=== PATIENT | male | born 1945 | race Caucasian/White ===

== ENCOUNTER → 2017-11-16 09:30 | Outpatient (CLI) | payer MEDICARE, OTHER, SELFPAY ==
[2017-11-16 10:20] LABS: BUN Creatinine Ratio 26.7 (6-22); Blood Urea Nitrogen 24 mg/dL (9-20); Calcium 9.8 mg/dL (8.4-10.2); Carbon Dioxide 30 mmol/L (22-32); Chloride 104 mmol/L (98-107); Estimated Glomerular Filt Rate > 60.0 mL/min (>60); Glucose 93 mg/dL (80-110); HEMOLYSIS < 15 (0-50); Potassium 3.4 mmol/L (3.4-5.1); Sodium 141 mmol/L (137-145)
== END ==
PROVIDERS: Visit Provider Internal Medicine
DX: I10 Essential (primary) hypertension (principal)
CPT/HCPCS: 36415; 80048

== ENCOUNTER → 2018-04-17 12:55 | Outpatient (CLI) | payer MEDICARE, OTHER, SELFPAY | PROVIDERS: Visit Provider Specialist | DX: N40.1 Benign prostatic hyperplasia with lower urinary tract symptoms (principal) | CPT/HCPCS: 36415; 84153 ==

== ENCOUNTER → 2018-08-10 07:38 | Outpatient (CLI) | payer MEDICARE, OTHER, SELFPAY ==
[2018-08-10 09:17] LABS: Alanine Aminotransferase 27 IU/L (21-72); Albumin 4.1 g/dL (3.5-5.0); Albumin Globulin Ratio 1.6 (1.0-2.8); Alkaline Phosphatase 53 U/L (38-126); Aspartate Aminotransferase 23 IU/L (17-59); BUN Creatinine Ratio 26.7 (6-22); Bilirubin Total 1.4 mg/dL (0.2-1.3); Blood Urea Nitrogen 24 mg/dL (9-20); Calcium 9.7 mg/dL (8.4-10.2); Carbon Dioxide 33 mmol/L (22-32); Chloride 101 mmol/L (98-107); Cholesterol 152 mg/dL (140-199); Estimated Glomerular Filt Rate > 60.0 mL/min (>60); Globulin 2.6 g/dL (1.7-4.1); Glucose 91 mg/dL (80-110); HDL Cholesterol 42 mg/dL (40-60); HEMOLYSIS < 15 (0-50); LDL Cholesterol Calculated 102 mg/dL (<100); Potassium 3.2 mmol/L (3.4-5.1); Sodium 142 mmol/L (137-145); Total Protein 6.7 g/dL (6.3-8.2); Triglycerides 42 mg/dL (35-150)
[2018-08-10 10:07] LABS: TSH w/ Reflex to FT4 1.12 uIU/mL (0.47-4.68)
[2018-08-14 12:09] LABS: Magnesium 1.5 mg/dL (1.6-2.3)
== END ==
PROVIDERS: PCP Internal Medicine; Visit Provider Internal Medicine
DX: I10 Essential (primary) hypertension (principal); E04.2 Nontoxic multinodular goiter; Z13.6 Encounter for screening for cardiovascular disorders
CPT/HCPCS: 36415; 80053; 80061; 83735; 84443

== ENCOUNTER → 2018-08-21 10:59 | Outpatient (CLI) | payer MEDICARE, OTHER, SELFPAY ==
--- NOTE | 2018-08-21 11:03 | DI.RAD.S_ITS ---
PROCEDURE: XR CLAVICLE LT INDICATIONS: left clavicle pain TECHNIQUE: 2 views of the clavicle were acquired. COMPARISON: None. FINDINGS: Bones: No fractures or dislocations. No suspicious bony lesions. Soft tissues: No suspicious soft tissue calcifications. IMPRESSION: No acute fracture. No osseous lesion. If symptoms and/or clinical suspicion for pathology persist, further assessment with repeat, or advanced imaging (e.g., CT, MRI, or bone scan) may be helpful for further assessment. Dictated by: Mary Stearns M.D. on 08/21/2018 at 11:18 Approved by: Mary Stearns M.D. on 08/21/2018 at 11:18
--- NOTE | 2018-08-21 11:03 | DI.RAD.S_ITS ---
PROCEDURE: XR SHOULDER LT MIN 2V INDICATIONS: clavicle pain TECHNIQUE: 3 views of the shoulder were acquired. COMPARISON: None. FINDINGS: Bones: No fractures or dislocations. No suspicious bony lesions. Visualized ribs appear intact. Soft tissues: No suspicious soft tissue calcifications. IMPRESSION: No acute fracture. No osseous lesion. If symptoms and/or clinical suspicion for pathology persist, further assessment with repeat, or advanced imaging (e.g., CT, MRI, or bone scan) may be helpful for further assessment. Dictated by: Mary Stearns M.D. on 08/21/2018 at 11:17 Approved by: Mary Stearns M.D. on 08/21/2018 at 11:18
== END ==
PROVIDERS: PCP Internal Medicine; Visit Provider Physician Assistant
DX: M89.8X1 Other specified disorders of bone, shoulder (principal); M25.512 Pain in left shoulder
CPT/HCPCS: 73000; 73030

== ENCOUNTER → 2018-09-12 10:03 | Outpatient (CLI) | payer MEDICARE, OTHER, SELFPAY ==
[2018-09-12 11:52] LABS: BUN Creatinine Ratio 28.9 (6-22); Blood Urea Nitrogen 26 mg/dL (9-20); Calcium 9.7 mg/dL (8.4-10.2); Carbon Dioxide 28 mmol/L (22-32); Chloride 102 mmol/L (98-107); Estimated Glomerular Filt Rate > 60.0 mL/min (>60); Glucose 91 mg/dL (80-110); HEMOLYSIS < 15 (0-50); Magnesium 1.6 mg/dL (1.6-2.3); Potassium 3.6 mmol/L (3.4-5.1); Sodium 139 mmol/L (137-145)
== END ==
PROVIDERS: PCP Internal Medicine; Visit Provider Internal Medicine
DX: I10 Essential (primary) hypertension (principal); R79.0 Abnormal level of blood mineral
CPT/HCPCS: 36415; 80048; 83735

== ENCOUNTER 2018-09-24 20:52 | Emergency (ER) | payer MEDICARE, OTHER, SELFPAY ==
[2018-09-24 20:55] VITALS: BP 133/79; PULSE 62; RESP 16; TEMP 36.1; O2SAT 96
--- NOTE | 2018-09-24 20:58 | DI.RAD.S_ITS ---
PROCEDURE: XR FINGER RT MIN 2V INDICATIONS: crush injury to right thumb TECHNIQUE: AP hand, 2 views of the right first finger(s) acquired. COMPARISON: [facility], , FINGER RT, 11/05/2015, 11:14. FINDINGS: Bones: No fractures or dislocations. No suspicious bony lesions. Soft tissues: No suspicious soft tissue calcifications. IMPRESSION: No acute fracture. No osseous lesion. If clinical suspicion and/or symptoms persist, further assessment with repeat plainfilms, or advanced imaging (e.g., CT, MRI, or bone scan) may be helpful for further assessment. Dictated by: Mary Stearns M.D. on 09/24/2018 at 21:34 Approved by: Mary Stearns M.D. on 09/24/2018 at 21:34
--- NOTE | 2018-09-24 21:49 | ED.UPPEXIN ---
HPI - Extremity Injury (Upper) General Chief Complaint: Extremity Injury, Upper Stated Complaint: smashed thumb in door Time Seen by Provider: 09/24/18 21:30 Source: patient and family Mode of arrival: ambulatory Limitations: no limitations History of Present Illness HPI narrative: 73-year-old male nonsmoker presents with his in the chief complaint of right thumb pain after accidentally slamming it in a door. There is no break in the skin, denies numbness or tingling and states this pain is worse with range of motion. He denies other injury and is free of complaints complaint: injury to: right and finger Onset (ago): hour(s) Other Extremity Injury: Right: fingers Other injuries: none Handedness: right Place: home Severity: mild Relieving factors: immobilization Exacerbating factors: movement of extremity Context: direct blow Associated symptoms: denies other symptoms Related Data Home Medications Medication Instructions Recorded Confirmed ASPIRIN (#ASPIRIN LOW STRENGTH) 81 mg PO Q DAY #0 03/23/12 08/21/18 tamsulosin [Flomax] 0.4 mg PO QDAY #0 cap 07/19/17 08/21/18 omeprazole 40 mg capsule,delayed 40 mg PO QDAY PRN cap 07/03/18 08/21/18 release Previous Rx's Medication Instructions Recorded chlorthalidone 50 mg tablet 50 mg PO QDAY #90 tab 06/13/18 potassium chloride ER 10 mEq 40 meq PO BID #720 tab 07/03/18 tablet,extended release magnesium oxide 400 mg capsule 400 mg PO BID #60 cap 09/19/18 Allergies Allergy/AdvReac Type Severity Reaction Status Date / Time lisinopril [LISINOPRIL] Allergy Mild feel Verified 09/24/18 20:58 strange Review of Systems Constitutional Denies chills, Denies fever(s), Denies lethargy and Denies weakness Eyes Denies change in vision, Denies eye discharge, Denies irritation and Denies loss of vision ENT Ears, Nose, Mouth, and Throat: Denies change in voice, Denies neck pain and Denies sore throat Cardiovascular Denies chest pain, Denies irregular heart rhythm, Denies lightheadedness, Denies palpitations, Denies dyspnea, Denies dyspnea on exertion and Denies orthopnea Respiratory Denies cough, Denies dyspnea, Denies dyspnea on exertion and Denies wheezing Gastrointestinal Gastrointestinal: Denies abdominal pain, Denies change in bowel habits, Denies diarrhea, Denies nausea and Denies vomiting Genitourinary Denies hematuria, Denies flank pain, Denies urinary incontinence and Denies urinary urgency Musculoskeletal Reports limited range of motion and Denies neck pain Integumentary/Breasts Denies pruritus, Denies erythema, Denies rash and Denies wounds Neurologic Denies confusion, Denies loss of vision and Denies weakness Psychiatric Denies anxiety, Denies confusion, Denies depression, Denies homicidal ideation and Denies suicidal ideation Endocrine Denies palpitations Hematologic/Lymphatic Denies easy bruising Allergic/Immunologic Denies wheezing [facility] Medical History Essential hypertension (Chronic 06/29/11) Multinodular goiter (Chronic) 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 Extraoccular muscles are intact bilaterally. There is no subconjunctival hemorrhage or exudate. CHEST: Lungs are clear to auscultation bilaterally and free of wheezes, rales, or rhonchi. Heart rate is regular rhythm, there are no murmurs, clicks, rubs, or gallops. There is no chest wall tenderness. ABD: Abdomen is soft and nontender. There is no guarding or rebound. Bowel sounds are normal in all 4 quadrants. There is no mass or organomegaly. EXT: Full but painful range of motion of the right thumb. There is no break in the skin nor any obvious bony abnormality or deformity. Small subungual hematoma noted with sensation intact SKIN: Warm, pink, and dry. No erythema or rash Initial Vital Signs Initial Vital Signs: Vital Signs Temperature 97 F L 09/24/18 20:55 Pulse Rate 62 09/24/18 20:55 Respiratory Rate 16 09/24/18 20:55 Blood Pressure 133/79 09/24/18 20:55 Pulse Oximetry 96 09/24/18 20:55 Course Orders Ordered: ED Orders 09/24/18 20:58 XR finger RT min 2V Stat Vital Signs - 8 hr 09/24/18 20:55 09/24/18 22:10 Temperature 97 F L Pulse Rate 62 76 Respiratory Rate 16 14 Blood Pressure 133/79 138/82 Pulse Oximetry 96 99 [facility] - Extremity Injury (Upper) Imaging Data Finger Xray: Radiologist's impression: [address] [address] XRay Report Signed Patient: Reagan Holder WMR#: [id number] : 1945cct:[id number] Age/Sex: 73 / MDate of Service: 09/24/18 Loc: ED Accession Number: [id number] Procedure: XR finger RT min 2V Ordering Provider: Jony Levine D.O. PROCEDURE: XR FINGER RT MIN 2V INDICATIONS: crush injury to right thumb TECHNIQUE: AP hand, 2 views of the right first finger(s) acquired. COMPARISON: [facility], , FINGER RT, 11/05/2015, 11:14. FINDINGS: Bones: No fractures or dislocations. No suspicious bony lesions. Soft tissues: No suspicious soft tissue calcifications. IMPRESSION: No acute fracture. No osseous lesion. If clinical suspicion and/or symptoms persist, further assessment with repeat plainfilms, or advanced imaging (e.g., CT, MRI, or bone scan) may be helpful for further assessment. Dictated by: Mary Stearns M.D. on 09/24/2018 at 21:34 MDM Narrative Medical decision making narrative: Patient was significant thumb pain after crushing injury earlier tonight. No bony abnormality on x-ray and only a small subungual hematoma exam. It is very proximal and not large enough at this point time for trephination Discharge Plan Departure Patient Disposition: Home Clinical Impression: Subungual hematoma of digit of hand Qualifiers: Encounter type: initial encounter Qualified Code(s): S60.10XA - Contusion of unspecified finger with damage to nail, initial encounter Discharge Date/Time: 09/24/18 22:12 Interventions: ED Discharge Assessment Last Done: 09/24/18 22:10 Instructions: DI for Subungual Hematoma Activity Restrictions/Additional Instructions: *You have been diagnosed with [subungual hematoma right thumb] *What to do: *Take medications as directed: [id number] Tylenol or Motrin *Follow up with your primary care provider as planned in 2 weeks *Return to ER if you should have any new, worsening or concerning symptoms, such as [worsening pain, numbness, expansion of the hematoma or other bothersome symptoms] Prescriptions: No Action ASPIRIN (#ASPIRIN LOW STRENGTH) 81 mg PO Q DAY Qty: 0 RF: 0 tamsulosin [Flomax] 0.4 MG capsule,extended release 24hr 0.4 mg PO QDAY Qty: 0 RF: 0 chlorthalidone 50 mg tablet 50 mg PO QDAY Qty: 90 RF: 3 magnesium oxide 400 mg capsule 400 mg PO BID Qty: 60 RF: 7 omeprazole 40 mg capsule,delayed release(DR/EC) 40 mg PO QDAY PRNRF: 0 potassium chloride 10 mEq tablet extended release 40 meq PO BID Qty: 720 RF: 3 Referrals: Neri Mtz MD [Primary Care Provider] -
--- NOTE | 2018-09-24 21:53 | ED_ITS ---
HPI - Extremity Injury (Upper) General Chief Complaint: Extremity Injury, Upper Stated Complaint: smashed thumb in door Time Seen by Provider: 09/24/18 21:30 Source: patient and family Mode of arrival: ambulatory Limitations: no limitations History of Present Illness HPI narrative: 73-year-old male nonsmoker presents with his in the chief complaint of right thumb pain after accidentally slamming it in a door. There is no break in the skin, denies numbness or tingling and states this pain is worse with range of motion. He denies other injury and is free of complaints complaint: injury to: right and finger Onset (ago): hour(s) Other Extremity Injury: Right: fingers Other injuries: none Handedness: right Place: home Severity: mild Relieving factors: immobilization Exacerbating factors: movement of extremity Context: direct blow Associated symptoms: denies other symptoms Related Data Home Medications Medication Instructions Recorded Confirmed ASPIRIN (#ASPIRIN LOW STRENGTH) 81 mg PO Q DAY #0 03/23/12 08/21/18 tamsulosin [Flomax] 0.4 mg PO QDAY #0 cap 07/19/17 08/21/18 omeprazole 40 mg capsule,delayed 40 mg PO QDAY PRN cap 07/03/18 08/21/18 release Previous Rx's Medication Instructions Recorded chlorthalidone 50 mg tablet 50 mg PO QDAY #90 tab 06/13/18 potassium chloride ER 10 mEq 40 meq PO BID #720 tab 07/03/18 tablet,extended release magnesium oxide 400 mg capsule 400 mg PO BID #60 cap 09/19/18 Allergies Allergy/AdvReac Type Severity Reaction Status Date / Time lisinopril [LISINOPRIL] Allergy Mild feel Verified 09/24/18 20:58 strange Review of Systems Constitutional Denies chills, Denies fever(s), Denies lethargy and Denies weakness Eyes Denies change in vision, Denies eye discharge, Denies irritation and Denies loss of vision ENT Ears, Nose, Mouth, and Throat: Denies change in voice, Denies neck pain and Denies sore throat Cardiovascular Denies chest pain, Denies irregular heart rhythm, Denies lightheadedness, Denies palpitations, Denies dyspnea, Denies dyspnea on exertion and Denies orthopnea Respiratory Denies cough, Denies dyspnea, Denies dyspnea on exertion and Denies wheezing Gastrointestinal Gastrointestinal: Denies abdominal pain, Denies change in bowel habits, Denies diarrhea, Denies nausea and Denies vomiting Genitourinary Denies hematuria, Denies flank pain, Denies urinary incontinence and Denies urinary urgency Musculoskeletal Reports limited range of motion and Denies neck pain Integumentary/Breasts Denies pruritus, Denies erythema, Denies rash and Denies wounds Neurologic Denies confusion, Denies loss of vision and Denies weakness Psychiatric Denies anxiety, Denies confusion, Denies depression, Denies homicidal ideation and Denies suicidal ideation Endocrine Denies palpitations Hematologic/Lymphatic Denies easy bruising Allergic/Immunologic Denies wheezing [facility] Medical History Essential hypertension (Chronic 06/29/11) Multinodular goiter (Chronic) 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 Extraoccular muscles are intact bilaterally. There is no subconjunctival hemorrhage or exudate. CHEST: Lungs are clear to auscultation bilaterally and free of wheezes, rales, or rhonchi. Heart rate is regular rhythm, there are no murmurs, clicks, rubs, or gallops. There is no chest wall tenderness. ABD: Abdomen is soft and nontender. There is no guarding or rebound. Bowel sounds are normal in all 4 quadrants. There is no mass or organomegaly. EXT: Full but painful range of motion of the right thumb. There is no break in the skin nor any obvious bony abnormality or deformity. Small subungual hematoma noted with sensation intact SKIN: Warm, pink, and dry. No erythema or rash Initial Vital Signs Initial Vital Signs: Vital Signs Temperature 97 F L 09/24/18 20:55 Pulse Rate 62 09/24/18 20:55 Respiratory Rate 16 09/24/18 20:55 Blood Pressure 133/79 09/24/18 20:55 Pulse Oximetry 96 09/24/18 20:55 Course Orders Ordered: ED Orders 09/24/18 20:58 XR finger RT min 2V Stat Vital Signs - 8 hr 09/24/18 20:55 09/24/18 22:10 Temperature 97 F L Pulse Rate 62 76 Respiratory Rate 16 14 Blood Pressure 133/79 138/82 Pulse Oximetry 96 99 [facility] - Extremity Injury (Upper) Imaging Data Finger Xray: Radiologist's impression: [address] [address] XRay Report Signed Patient: Reagan Holder WMR#: [id number] : [id number]:[id number] Age/Sex: 73 / MDate of Service: 09/24/18 Loc: ED Accession Number: [id number] Procedure: XR finger RT min 2V Ordering Provider: Jony Levine D.O. PROCEDURE: XR FINGER RT MIN 2V INDICATIONS: crush injury to right thumb TECHNIQUE: AP hand, 2 views of the right first finger(s) acquired. COMPARISON: [facility], , FINGER RT, 11/05/2015, 11:14. FINDINGS: Bones: No fractures or dislocations. No suspicious bony lesions. Soft tissues: No suspicious soft tissue calcifications. IMPRESSION: No acute fracture. No osseous lesion. If clinical suspicion and/or symptoms persist, further assessment with repeat plainfilms, or advanced imaging (e.g., CT, MRI, or bone scan) may be helpful for further assessment. Dictated by: Mary Stearns M.D. on 09/24/2018 at 21:34 MDM Narrative Medical decision making narrative: Patient was significant thumb pain after crushing injury earlier tonight. No bony abnormality on x-ray and only a small subungual hematoma exam. It is very proximal and not large enough at this point time for trephination Discharge Plan Departure Patient Disposition: Home Clinical Impression: Subungual hematoma of digit of hand Qualifiers: Encounter type: initial encounter Qualified Code(s): S60.10XA - Contusion of unspecified finger with damage to nail, initial encounter Discharge Date/Time: 09/24/18 22:12 Interventions: ED Discharge Assessment Last Done: 09/24/18 22:10 Instructions: DI for Subungual Hematoma Activity Restrictions/Additional Instructions: *You have been diagnosed with [subungual hematoma right thumb] *What to do: *Take medications as directed: Gabw-[id number]-sbneurw Tylenol or Motrin *Follow up with your primary care provider as planned in 2 weeks *Return to ER if you should have any new, worsening or concerning symptoms, such as [worsening pain, numbness, expansion of the hematoma or other bothersome symptoms] Prescriptions: No Action ASPIRIN (#ASPIRIN LOW STRENGTH) 81 mg PO Q DAY Qty: 0 RF: 0 tamsulosin [Flomax] 0.4 MG capsule,extended release 24hr 0.4 mg PO QDAY Qty: 0 RF: 0 chlorthalidone 50 mg tablet 50 mg PO QDAY Qty: 90 RF: 3 magnesium oxide 400 mg capsule 400 mg PO BID Qty: 60 RF: 7 omeprazole 40 mg capsule,delayed release(DR/EC) 40 mg PO QDAY PRNRF: 0 potassium chloride 10 mEq tablet extended release 40 meq PO BID Qty: 720 RF: 3 Referrals: Neri Mtz MD [Primary Care Provider] -
--- NOTE | 2018-09-24 21:55 | PC.NURSE ---
reports having a large solid wooden door close on right thumb. positive cms, no open wound. Ice applied.
[2018-09-24 22:10] VITALS: BP 138/82; PULSE 76; RESP 14; O2SAT 99
== END 2018-09-24 22:12 | disposition home or self-care (01) ==
PROVIDERS: Emergency Provider Emergency Medicine; PCP Internal Medicine
DX: S60.111A Contusion of right thumb with damage to nail, initial encounter (principal); W23.0XXA Caught, crushed, jammed, or pinched between moving objects, initial encounter
CPT/HCPCS: 29130; 73140; 99283

== ENCOUNTER → 2018-11-07 07:31 | Outpatient (CLI) | payer MEDICARE, OTHER, SELFPAY ==
[2018-11-07 09:05] LABS: Blood Urea Nitrogen 20 mg/dL (9-20); Calcium 9.1 mg/dL (8.4-10.2); Carbon Dioxide 27 mmol/L (22-32); Chloride 108 mmol/L (98-107); Estimated Glomerular Filt Rate > 60.0 mL/min (>60); Glucose 86 mg/dL (80-110); HEMOLYSIS < 15 (0-50); Magnesium 1.5 mg/dL (1.6-2.3); Potassium 3.7 mmol/L (3.4-5.1); Sodium 141 mmol/L (137-145)
== END ==
PROVIDERS: PCP Student in an Organized Health Care Education/Training Program; Visit Provider Student in an Organized Health Care Education/Training Program
DX: E83.42 Hypomagnesemia (principal); E87.6 Hypokalemia; I10 Essential (primary) hypertension
CPT/HCPCS: 36415; 80048; 83735

== ENCOUNTER → 2018-12-06 09:06 | Outpatient (CLI) | payer MEDICARE, OTHER, SELFPAY ==
[2018-12-06 10:57] LABS: Prostate Specific Antigen 4.99 ng/mL (0.10-4.00)
== END ==
PROVIDERS: Family Provider Student in an Organized Health Care Education/Training Program; PCP Student in an Organized Health Care Education/Training Program; Visit Provider Specialist
DX: N40.1 Benign prostatic hyperplasia with lower urinary tract symptoms (principal)
CPT/HCPCS: 36415; 84153

== ENCOUNTER → 2019-05-23 15:09 | Outpatient (CLI) | payer MEDICARE, OTHER, SELFPAY ==
[2019-05-23 16:21] LABS: Appearance Urine UA CLOUDY; Bilirubin Urine UA NEGATIVE (NEGATIVE); Color Urine UA YELLOW; Glucose Urine UA NEGATIVE (Negative); Ketones Urine UA NEGATIVE (NEGATIVE); Leukocyte Esterase Urine UA 1+ (NEGATIVE); Nitrite Urine UA NEGATIVE (Negative); Occult Blood Urine UA 3+ (Negative); Protein Urine UA 2+ (Negative); Urobilinogen Urine UA 0.2 E.U./dL (0.2); pH Urine UA 6.5 (4.5-8.0)
[2019-05-23 16:31] LABS: Amorphous Sediment Urine 2+; Bacteria Urine Many (>30); Culture Indicated Urine Specimen Cultured; RBC Urine 10-30/HPF (0-5/HPF); Renal Epithelial Cells Urine 0-1/HPF (0-1/HPF); Squamous Epithelial Cell Urine 0-1 /HPF (0-5/HPF); Transitional Epi Cells Urine 0-1/HPF (0-5/HPF); WBC Urine 30-100/HPF (0-5/HPF)
== END ==
PROVIDERS: Family Provider Student in an Organized Health Care Education/Training Program; PCP Student in an Organized Health Care Education/Training Program; Visit Provider Specialist
DX: N39.0 Urinary tract infection, site not specified (principal)
CPT/HCPCS: 81001; 87077; 87086

== ENCOUNTER → 2019-06-12 11:38 | Outpatient (CLI) | payer MEDICARE, OTHER, SELFPAY ==
[2019-06-12 13:41] LABS: Prostate Specific Antigen 5.75 ng/mL (0.10-4.00)
== END ==
PROVIDERS: Family Provider Student in an Organized Health Care Education/Training Program; PCP Student in an Organized Health Care Education/Training Program; Referring Provider Specialist; Visit Provider Specialist
DX: N40.1 Benign prostatic hyperplasia with lower urinary tract symptoms (principal)
CPT/HCPCS: 36415; 84153

== ENCOUNTER → 2019-09-20 07:02 | Outpatient (CLI) | payer MEDICARE, OTHER, SELFPAY ==
[2019-09-20 08:43] LABS: BUN Creatinine Ratio 20.5 (6-22); Blood Urea Nitrogen 17 mg/dL (9-20); Calcium 9.8 mg/dL (8.4-10.2); Carbon Dioxide 28 mmol/L (22-32); Chloride 106 mmol/L (98-107); Estimated Glomerular Filt Rate > 60.0 mL/min (>60); Glucose 91 mg/dL (80-110); HEMOLYSIS < 15 (0-50); Magnesium 1.8 mg/dL (1.6-2.3); Potassium 3.9 mmol/L (3.4-5.1); Sodium 141 mmol/L (137-145)
[2019-09-20 09:11] LABS: TSH w/ Reflex to FT4 0.98 uIU/mL (0.47-4.68)
[2019-09-20 09:31] LABS: Vitamin B12 370 pg/mL (239-931)
== END ==
PROVIDERS: Family Provider Student in an Organized Health Care Education/Training Program; PCP Student in an Organized Health Care Education/Training Program; Referring Provider Student in an Organized Health Care Education/Training Program; Visit Provider Student in an Organized Health Care Education/Training Program
DX: E04.2 Nontoxic multinodular goiter (principal); E83.42 Hypomagnesemia; E87.6 Hypokalemia; I10 Essential (primary) hypertension; R53.83 Other fatigue
CPT/HCPCS: 36415; 80048; 82607; 83735; 84443

== ENCOUNTER 2019-09-21 04:46 | Emergency (ER) | payer MEDICARE, OTHER, SELFPAY ==
--- NOTE | 2019-09-21 04:48 | ED.GENADULT ---
HPI - General Adult General Stated complaint: bladder infection/pain with urination Time Seen by Provider: 09/21/19 04:48 History of Present Illness HPI narrative: 74-year-old gentleman with a history of BPH and prior urinary tract infections. Most recent in May and grew out strep viridans. States that he was in his usual state of health until just prior to going to bed last night when he began having some mild dysuria. By a 4:00 a.m. this morning, he was having more discomfort and significant dysuria. Was not noticing significant hematuria. Presents to the emergency room for treatment of her presumed bladder infection. He has had no penile discharge, does not note difficulty in starting his stream, no new sexual partners no obvious hematuria no flank pain or belly pain no fevers Related Data Home Medications Medication Instructions Recorded Confirmed tamsulosin [Flomax] 0.4 mg PO QDAY #0 cap 07/19/17 01/01/19 omeprazole 40 mg capsule,delayed 40 mg PO QDAY PRN cap 07/03/18 01/01/19 release aspirin 81 mg tablet,delayed 81 mg PO DAILY 01/07/19 01/07/19 release Previous Rx's Medication Instructions Recorded magnesium oxide 84.5 mg PO BID #90 cap 11/07/18 losartan 25 mg tablet 25 mg PO DAILY #90 tab 11/28/18 potassium chloride 10 mEq 40 meq PO DAILY #720 tab 09/02/19 tablet,extended release cephalexin 500 mg PO Q8H #21 cap 09/21/19 Allergies Allergy/AdvReac Type Severity Reaction Status Date / Time lisinopril [LISINOPRIL] Allergy Mild feel Verified 01/01/19 15:22 strange Review of Systems Review of Systems Narrative: Pertinent positive and negative findings as per HPI Remainder of review of systems is otherwise unremarkable for Constitutional: Fevers, chills, weakness ENT: No sore throat, neck pain, ear pain CV: Chest pain, palpitations, dyspnea on exertion Respiratory: Cough, wheeze, dyspnea GI: Nausea, vomiting, diarrhea, change in bowel habits, black or bloody stools MS: Muscle weakness, numbness, joint swelling or warmth Neuro: Syncope, dizziness, tingling Psych: Depression, anxiety, suicidal ideation Endocrine: Fatigue, heat or cold intolerance, very dry skin Patient History Medical History Benign non-nodular prostatic hyperplasia with lower urinary tract symptoms (Chronic 03/25/15) Cancer of kidney (Chronic ~1998) Elevated PSA (Chronic) Essential hypertension (Chronic 06/29/11) H/O adenomatous polyp of colon (Inactive ~07/2017) Kidney stones (Chronic) Multinodular goiter (Chronic) Proctitis (Chronic ~2008) Surgical History Anesthesia (Resolved) History of nephrectomy (~1998) Status post colonoscopy (~2008) Social History Smoking Status: Never smoker Smoking Status: Never smoker alcohol intake frequency: 0-2 drinks per day Substance Use Type: does not use Exam Narrative Exam Narrative: General: Healthy appearing, in no acute distress. Able to give a complete and coherent history. Well-nourished well-developed HEENT: Moist mucous membranes, normal sclera with reactive pupils, Respiratory: Lungs are clear to auscultation, no wheezing no rales no rhonchi. Full and symmetrical air movement Cardiac: Regular rate and rhythm no murmurs no bruits Abdomen: Soft nontender good bowel tones, no flank pain Skin: Warm and dry, no rashes Psych: Cooperative, appropriate insight and affect Course Orders Ordered: ED Orders 09/21/19 04:59 Urinalysis and Microscopic Stat Discontinued Medications Cephalexin HCl (Keflex) 500 mg PO NOW ONE Stop: 09/21/19 05:00 Phenazopyridine HCl (Pyridium) 200 mg PO NOW ONE Stop: 09/21/19 05:00 Medical Decision Making Medical Records Medical records reviewed: Yes I reviewed the patient's medical records. Lab Data Lab results reviewed: Yes I reviewed the patient's lab results. Lab results narrative: Urine dip is significant for leukocyte Estrace, protein and blood all consistent with UTI MDM Narrative Medical decision making narrative: Urinalysis from May of this year indicates a UTI with strep viridans presume sensitive to penicillins and cephalosporins History is consistent with acute onset. He does not describe significant symptoms of urinary retention or kidney stones to suggest a reason for his recurrent infections. Will treat him with 7 days of cephalexin. Have referred him back to Dr. Perez in follow-up due to the recurrent infections. At this point he does not have any evidence of overwhelming infection, sepsis or acute urinary retention or obstruction. He is safe for home discharge. Discharge Plan Departure Patient Disposition: Home Clinical Impression: Acute UTI Instructions: DI for Urinary Tract Infection (UTI) Activity Restrictions/Additional Instructions: Thank you for coming in today Your urinalysis does in fact look like you have a bladder infection. You have no other symptoms of systemic infections or sepsis. Your last bladder infection was in May and had a type of bacteria that was sensitive to Keflex the antibiotics that I will be prescribing for you this time. 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 For this reason I am going to recommend that you follow-up with Dr. Perez sometime next week to see if there is more that we need to think about where do to prevent these recurrent infections Using 400 mg of ibuprofen (2 lmcr-peh-nemzrmg pills) and 1 Tylenol every 6 hours can be very helpful in controlling pain. Please feel free to return to the emergency room if your symptoms are not improving, they worsen, you develop any fevers, abdominal pain or flank pain. I hope you heal quickly. Prescriptions: New cephalexin 500 mg capsule 500 mg PO Q8H Qty: 21 RF: 0 No Action tamsulosin [Flomax] 0.4 MG capsule,extended release 24hr 0.4 mg PO QDAY Qty: 0 RF: 0 Uro-Mag 84.5 mg mag (140 mg) capsule 84.5 mg PO BID Qty: 90 RF: 1 losartan 25 mg tablet 25 mg PO DAILY Qty: 90 RF: 3 potassium chloride 10 mEq tablet extended release 40 meq PO DAILY Qty: 720 RF: 1 omeprazole 40 mg capsule,delayed release(DR/EC) 40 mg PO QDAY PRNRF: 0 aspirin 81 mg tablet,delayed release (DR/EC) 81 mg PO DAILY RF: 0 Referrals: Eric Jeffries MD [Primary Care Provider] -
[2019-09-21 05:04] VITALS: BP 177/92; PULSE 87; RESP 16; TEMP 36.8; O2SAT 93; BMI 23.7
[2019-09-21] MEDS: PHENAZOPYRIDINE 100 MG TABLET 200 MG PO (05:08)
[2019-09-21] MEDS: cephALEXin 250 MG CAPSULE 500 MG PO (05:09)
[2019-09-21 05:12] LABS: Appearance Urine UA SL CLOUDY; Bilirubin Urine UA NEGATIVE (NEGATIVE); Color Urine UA YELLOW; Glucose Urine UA NEGATIVE (Negative); Ketones Urine UA NEGATIVE (NEGATIVE); Leukocyte Esterase Urine UA TRACE (NEGATIVE); Nitrite Urine UA NEGATIVE (Negative); Occult Blood Urine UA 2+ (Negative); Protein Urine UA 2+ (Negative); RBC Urine 0-1/HPF (0-5/HPF); Squamous Epithelial Cell Urine 0-1 /HPF (0-5/HPF); Urobilinogen Urine UA 0.2 E.U./dL (0.2); WBC Urine 30-100/HPF (0-5/HPF); pH Urine UA 6.5 (4.5-8.0)
[2019-09-21 05:13] LABS: Bacteria Urine Many (>30); Culture Indicated Urine Specimen Cultured
[2019-09-21 05:29] VITALS: BP 162/88; PULSE 56; RESP 15; O2SAT 96
== END 2019-09-21 05:31 | disposition home or self-care (01) ==
PROVIDERS: Emergency Provider Emergency Medicine; Family Provider Student in an Organized Health Care Education/Training Program; PCP Student in an Organized Health Care Education/Training Program
DX: N39.0 Urinary tract infection, site not specified (principal)
CPT/HCPCS: 81001; 81003; 87086; 99283

== ENCOUNTER 2019-11-03 07:36 | Emergency (ER) | payer MEDICARE, OTHER, SELFPAY ==
[2019-11-03 07:40] VITALS: BP 191/98; PULSE 61; RESP 18; TEMP 36.7; O2SAT 98; BMI 25.7
--- NOTE | 2019-11-03 07:42 | DI.RAD.S_ITS ---
PROCEDURE: XR CHEST 1V INDICATIONS: chest pain TECHNIQUE: One view of the chest was acquired. COMPARISON: . FINDINGS: Surgical changes and devices: None. Lungs and pleura: Lungs are clear. No pleural effusions or pneumothorax. Mediastinum: Mediastinal contours appear normal. Heart size is normal. Bones and chest wall: No suspicious bony lesions. Overlying soft tissues appear unremarkable. IMPRESSION: No evidence acute pulmonary process. Dictated by: Delio Oliver M.D. on 11/03/2019 at 7:43 Approved by: Delio Oliver M.D. on 11/03/2019 at 7:47
--- NOTE | 2019-11-03 08:06 | ED.CHESTPAIN ---
HPI - Chest Pain General Chief Complaint: Chest Pain Stated Complaint: rapid heart rate/ tingly Time Seen by Provider: 11/03/19 07:46 Source: patient Mode of arrival: Ambulatory Limitations: no limitations History of Present Illness HPI narrative: The patient is 74-year-old male with history of hypertension who presents with heart palpitations. He said he was sitting down eating breakfast when he immediately felt his heart beating quite rapidly he felt dizzy and lightheaded. He denies any chest pain or shortness of breath. He says it lasted for 1-2 minutes and has since stopped. He now feels back to normal. He is noted to be hypertensive but he says he has not taken his blood pressure meds as he typically needs to eat something before he does so. His heart rate is in the 50s and regular. MD complaint: other (Palpitations) Related Data Home Medications Medication Instructions Recorded Confirmed tamsulosin [Flomax] 0.4 mg PO QDAY #0 cap 07/19/17 01/01/19 omeprazole 40 mg capsule,delayed 40 mg PO QDAY PRN cap 07/03/18 01/01/19 release aspirin 81 mg tablet,delayed 81 mg PO DAILY 01/07/19 01/07/19 release Previous Rx's Medication Instructions Recorded magnesium oxide 84.5 mg PO BID #90 cap 11/07/18 losartan 25 mg tablet 25 mg PO DAILY #90 tab 11/28/18 potassium chloride 10 mEq 40 meq PO DAILY #720 tab 09/02/19 tablet,extended release cephalexin 500 mg PO Q8H #21 cap 09/21/19 Allergies Allergy/AdvReac Type Severity Reaction Status Date / Time lisinopril [LISINOPRIL] Allergy Mild feel Verified 01/01/19 15:22 strange Review of Systems Review of Systems Narrative: GENERAL: Denies chills, fatigue, malaise, fever, sweats, travel HEENT: Denies sinus pain, ear pain, sore throat, difficulty swallowing, neck pain RESPIRATORY: Denies dyspnea, cough, wheezing, hemoptysis, sputum. CARDIOVASCULAR: See HPI GASTROINTESTINAL: Denies nausea, vomiting, abdominal pain, diarrhea, constipation, melena. : Denies dysuria, frequency, incontinence, hematuria, urinary retention, flank pain. MUSCULOSKELETAL: Denies weakness, joint pain, or bony pain SKIN: No rash, no erythema, no pruritus NEUROLOGIC: Denies weakness, dizziness, headache, numbness, change in speech, confusion PSYCHIATRIC: No concerning psychosocial issues. 12 point review of systems is negative except for those stated above and HPI Patient History Medical History Benign non-nodular prostatic hyperplasia with lower urinary tract symptoms (Chronic 03/25/15) Cancer of kidney (Chronic ~1998) Elevated PSA (Chronic) Essential hypertension (Chronic 06/29/11) H/O adenomatous polyp of colon (Inactive ~07/2017) Kidney stones (Chronic) Multinodular goiter (Chronic) Proctitis (Chronic ~2008) Surgical History Anesthesia (Resolved) History of nephrectomy (~1998) Status post colonoscopy (~2008) Social History Smoking Status: Never smoker Smoking Status: Never smoker alcohol intake frequency: 0-2 drinks per day Substance Use Type: does not use Exam Initial Vital Signs Initial Vital Signs: Vital Signs Temperature 98.0 F 11/03/19 07:40 Pulse Rate 61 11/03/19 07:40 Respiratory Rate 18 11/03/19 07:40 Blood Pressure 191/98 H 11/03/19 07:40 Pulse Oximetry 98 11/03/19 07:40 GENERAL: Well-appearing, well-nourished and in no acute distress. HEENT: Head atraumatic,EOMI, pupils reactive, face symmetric, moist mucous membranes CARDIOVASCULAR: Regular rate and rhythm without murmurs, rubs or gallops. RESPIRATORY: Breath sounds equal bilaterally, no wheezes rales or rhonchi. ABDOMEN: Soft, nontender. Normoactive bowel sounds all 4 quadrants. No guarding or rebound. EXTREMITIES: Normal range of motion, no clubbing or edema. Neurovascularly intact NEUROLOGICAL: Alert and oriented x4.Normal gait and speech. SKIN: Warm, dry, no laceration, no petechiae, no rashes or lesions. Course Orders Ordered: ED Orders 11/03/19 07:42 XR chest 1V Stat EKG-12 Lead Stat 11/03/19 07:45 Complete Blood Count AUTO DIFF Stat Comprehensive Metabolic Panel Stat Lipase Stat Partial Thromboplastin Time Stat Prothrombin Time INR Stat Troponin & CK Cardiac Panel Stat Urine Microscopic Stat Vital Signs Vital signs: Vital Signs - 8 hr 11/03/19 07:40 11/03/19 08:35 Temperature 98.0 F Pulse Rate 61 51 L Respiratory Rate 18 19 Blood Pressure 191/98 H Blood Pressure [Left Arm] 164/86 H Pulse Oximetry 98 98 MDM - Chest Pain Lab Data Attestation: I reviewed the patient's lab results. Result diagrams: 11/03/19 07:45 11/03/19 07:45 Labs: Lab Results 11/03/19 11/03/19 11/03/19 Range/Units 07:45 07:45 07:45 WBC 5.0 (4.5-11.0) X10^3/uL RBC 5.01 (4.5-5.9) X10^6/uL Hgb 14.9 (13.5-17.5) g/dL Hct 44.1 (41-53) % MCV 88.0 (80-100) fL MCH 29.8 (26-34) PG MCHC 33.8 (30-36) % RDW 14.4 (11.6-14.8) % Plt Count 230 (150-400) X10^3/uL Neut % (Auto) 55.5 (50-75) % Lymph % (Auto) 27.9 (25-40) % [place] % (Auto) 11.8 (3-14) % Eos % (Auto) 4.1 H (2-4) % Baso % (Auto) 0.7 (0-2) % Neut # (Auto) 2800 (4275-3389) /uL Lymph # (Auto) 1400 (5381-6333) /uL [place] # (Auto) 600 (0-900) /uL Eos # (Auto) 200 (0-450) /uL Baso # (Auto) 0 (0-100) /uL PT 12.0 (10.1-12.7) SECONDS INR 1.0 (0.9-1.3) APTT 34 (26.4-36.2) SECONDS Sodium 138 (137-145) mmol/L Potassium 3.5 (3.4-5.1) mmol/L Chloride 105 (98-107) mmol/L Carbon Dioxide 31 (22-32) mmol/L BUN 19 (9-20) mg/dL Creatinine 0.85 (0.66-1.25) mg/dL Estimated GFR > 60.0 (>60) mL/min BUN/Creatinine Ratio 22.4 H (6-22) Glucose 112 H (80-110) mg/dL Calcium 9.7 (8.4-10.2) mg/dL Total Bilirubin 1.2 (0.2-1.3) mg/dL AST 24 (17-59) IU/L ALT 19 (<50) IU/L Alkaline Phosphatase 68 (38-126) U/L Total Creatine Kinase 53 L (55-170) U/L CK-MB (CK-2) TNP CK-MB (CK-2) Rel Index TNP Troponin I < 0.012 (0.01-0.034) ng/mL Total Protein 6.6 (6.3-8.2) g/dL Albumin 4.1 (3.5-5.0) g/dL Globulin 2.5 (1.7-4.1) g/dL Albumin/Globulin Ratio 1.6 (1.0-2.8) Lipase 61 (23-300) U/L Urine RBC (0-5/HPF) Urine WBC (0-5/HPF) Ur Squamous Epith Cells (0-5/HPF) Urine Bacteria (None) Ur Culture Indicated? 11/03/19 Range/Units 07:45 WBC (4.5-11.0) X10^3/uL RBC (4.5-5.9) X10^6/uL Hgb (13.5-17.5) g/dL Hct (41-53) % MCV (80-100) fL MCH (26-34) PG MCHC (30-36) % RDW (11.6-14.8) % Plt Count (150-400) X10^3/uL Neut % (Auto) (50-75) % Lymph % (Auto) (25-40) % [place] % (Auto) (3-14) % Eos % (Auto) (2-4) % Baso % (Auto) (0-2) % Neut # (Auto) (4505-2057) /uL Lymph # (Auto) (1096-0516) /uL [place] # (Auto) (0-900) /uL Eos # (Auto) (0-450) /uL Baso # (Auto) (0-100) /uL PT (10.1-12.7) SECONDS INR (0.9-1.3) APTT (26.4-36.2) SECONDS Sodium (137-145) mmol/L Potassium (3.4-5.1) mmol/L Chloride (98-107) mmol/L Carbon Dioxide (22-32) mmol/L BUN (9-20) mg/dL Creatinine (0.66-1.25) mg/dL Estimated GFR (>60) mL/min BUN/Creatinine Ratio (6-22) Glucose (80-110) mg/dL Calcium (8.4-10.2) mg/dL Total Bilirubin (0.2-1.3) mg/dL AST (17-59) IU/L ALT (<50) IU/L Alkaline Phosphatase (38-126) U/L Total Creatine Kinase (55-170) U/L CK-MB (CK-2) CK-MB (CK-2) Rel Index Troponin I (0.01-0.034) ng/mL Total Protein (6.3-8.2) g/dL Albumin (3.5-5.0) g/dL Globulin (1.7-4.1) g/dL Albumin/Globulin Ratio (1.0-2.8) Lipase (23-300) U/L Urine RBC None seen (0-5/HPF) Urine WBC 0-1/hpf (0-5/HPF) Ur Squamous Epith Cells 0-1 /hpf (0-5/HPF) Urine Bacteria Occasional (0-1) D (None) Ur Culture Indicated? Cult not indicated Urine Dip Bedside Urine Glucose Negative Bedside Urine Bilirubin - Negative Bedside Urine Ketone - Negative Urine Specific [place] 1.020 Bedside Urine Occult Blood - Negative Bedside Urine pH 6.5 Bedside Urine Protein - Negative Bedside Urine Urobilinogen - Negative Bedside Urine Nitrite - Negative Bedside Urine Leukocytes +/- 15 Esterase Imaging Data Chest x-ray: Radiologist's Impression: PROCEDURE: XR CHEST 1V INDICATIONS: chest pain TECHNIQUE: One view of the chest was acquired. COMPARISON: . FINDINGS: Surgical changes and devices: None. Lungs and pleura: Lungs are clear. No pleural effusions or pneumothorax. Mediastinum: Mediastinal contours appear normal. Heart size is normal. Bones and chest wall: No suspicious bony lesions. Overlying soft tissues appear unremarkable. IMPRESSION: No evidence acute pulmonary process. Dictated by: Delio Oliver M.D. on 11/03/2019 at 7:43 ECG Data Attestation: I personally reviewed and interpreted this ECG as follows: Prior ECG tracings: available for review Interpretation: Normal sinus rhythm rate 59 p.r. interval [address] elevation depression or T-wave inversion MDM Narrative Medical decision making narrative: Patient has been on the monitor without signs of arrhythmia or PVC. His symptoms lasted briefly and have completely resolved. I recommended outpatient workup with his primary care provider. At this time blood work EKG and chest x-ray are all reassuring. Discharge Plan Departure Patient Disposition: Home Clinical Impression: Heart palpitations Discharge Date/Time: 11/03/19 09:01 Instructions: DI for Arrhythmias, DI for Palpitations Activity Restrictions/Additional Instructions: *You have been diagnosed with heart palpitation *What to do: At this time I recommend she see her primary care provider in get set up with a Holter monitor to monitor your heart rate. Her blood pressure is noted to be elevated please be sure to take your blood pressure medications when you get home *Continue to take medications as directed *Follow up with your primary care provider in 2-3 days *Return to ER if you should have chest pain heart palpitations dizziness lightheadedness passing out or any new, worsening or concerning symptoms Prescriptions: No Action tamsulosin [Flomax] 0.4 MG capsule,extended release 24hr 0.4 mg PO QDAY Qty: 0 RF: 0 Uro-Mag 84.5 mg mag (140 mg) capsule 84.5 mg PO BID Qty: 90 RF: 1 losartan 25 mg tablet 25 mg PO DAILY Qty: 90 RF: 3 potassium chloride 10 mEq tablet extended release 40 meq PO DAILY Qty: 720 RF: 1 omeprazole 40 mg capsule,delayed release(DR/EC) 40 mg PO QDAY PRNRF: 0 aspirin 81 mg tablet,delayed release (DR/EC) 81 mg PO DAILY RF: 0 cephalexin 500 mg capsule 500 mg PO Q8H Qty: 21 RF: 0 Referrals: Eric Jeffries MD [Primary Care Provider] -
[2019-11-03 08:11] LABS: Add Manual Diff / Slide Review NO; Basophils Absolute Auto 0 /uL (0-100); Basophils Percent Auto 0.7 % (0-2); Eosinophils Absolute Auto 200 /uL (0-450); Eosinophils Percent Auto 4.1 % (2-4); Hematocrit 44.1 % (41-53); Hemoglobin 14.9 g/dL (13.5-17.5); Lymphocytes Absolute Auto 1400 /uL (1100-4500); Lymphocytes Percent Auto 27.9 % (25-40); Mean Corpuscular HGB Conc 33.8 % (30-36); Mean Corpuscular Hemoglobin 29.8 PG (26-34); Monocytes Absolute Auto 600 /uL (0-900); Monocytes Percent Auto 11.8 % (3-14); Neutrophils Absolute Auto 2800 /uL (1500-7000); Neutrophils Percent Auto 55.5 % (50-75); Platelet Count 230 X10^3/uL (150-400); Red Blood Cell Count 5.01 X10^6/uL (4.5-5.9); Red Cell Distribution Width 14.4 % (11.6-14.8)
[2019-11-03 08:21] LABS: Alanine Aminotransferase 19 IU/L (<50); Albumin 4.1 g/dL (3.5-5.0); Albumin Globulin Ratio 1.6 (1.0-2.8); Alkaline Phosphatase 68 U/L (38-126); Aspartate Aminotransferase 24 IU/L (17-59); BUN Creatinine Ratio 22.4 (6-22); Bilirubin Total 1.2 mg/dL (0.2-1.3); Blood Urea Nitrogen 19 mg/dL (9-20); Calcium 9.7 mg/dL (8.4-10.2); Carbon Dioxide 31 mmol/L (22-32); Chloride 105 mmol/L (98-107); Creatine Kinase 53 U/L (55-170); Estimated Glomerular Filt Rate > 60.0 mL/min (>60); Globulin 2.5 g/dL (1.7-4.1); Glucose 112 mg/dL (80-110); HEMOLYSIS < 15 (0-50); Lipase 61 U/L (23-300); Potassium 3.5 mmol/L (3.4-5.1); Sodium 138 mmol/L (137-145); Total Protein 6.6 g/dL (6.3-8.2)
[2019-11-03 08:24] LABS: PTT Partial Thromboplastin Tim 34 SECONDS (26.4-36.2)
[2019-11-03 08:26] LABS: RBC Urine None Seen (0-5/HPF)
[2019-11-03 08:32] LABS: Troponin I < 0.012 ng/mL (0.01-0.034)
[2019-11-03 08:35] VITALS: BP 164/86; PULSE 51; RESP 19; O2SAT 98
[2019-11-03 09:02] LABS: Bacteria Urine Occasional (0-1); Culture Indicated Urine Cult Not Indicated; Squamous Epithelial Cell Urine 0-1 /HPF (0-5/HPF); WBC Urine 0-1/HPF (0-5/HPF)
== END 2019-11-03 09:01 | disposition home or self-care (01) ==
PROVIDERS: Emergency Provider Emergency Medicine; Family Provider Student in an Organized Health Care Education/Training Program; PCP Student in an Organized Health Care Education/Training Program
DX: R00.2 Palpitations (principal); R07.9 Chest pain, unspecified; I10 Essential (primary) hypertension
CPT/HCPCS: 36415; 71045; 80053; 81003; 81015; 82550; 83690; 84484; 85025; 85610; 85730; 93005; 99284

== ENCOUNTER → 2019-11-13 14:51 | Outpatient (CLI) | payer MEDICARE, OTHER, SELFPAY ==
--- NOTE | 2019-11-26 08:03 | P.HOLT.S_ITS ---
Latrine Cleaner Report Referral & Results Date Patient Seen: 11/13/19 Requesting provider: Eric Jeffries Indication: Palpitations Duration of monitoring (days): 3 Diary information: There were no patient triggered events or patient diary entries to evaluate Data: Minimum heart rate identified was 42 beats per minute at 16:26 on 11/13/2019 Maximum sinus heart rate was 124 beats per minute at 16:17 on 11/15/2019 Maximum overall heart rate was 167 beats per minute at 15:47 on 11/15/2019 during a 10 beat run of SVT/atrial tachycardia Approximately 2.9% of identified beats were supraventricular ectopic in origin Approximately 1% of identified beats were ventricular ectopic in origin Patient had 7 runs of SVT/atrial tachycardia the fastest being the above 10 beat run and the longest lasting 9 beats at a rate of 108 beats per minute (almost certainly atrial tachycardia) Impression: Patient with occasional ventricular and supraventricular ectopic beats. No symptoms to correlate with findings Clinical correlation suggested
== END ==
PROVIDERS: Family Provider Student in an Organized Health Care Education/Training Program; PCP Student in an Organized Health Care Education/Training Program; Referring Provider Student in an Organized Health Care Education/Training Program; Visit Provider Student in an Organized Health Care Education/Training Program
DX: R00.2 Palpitations (principal)
CPT/HCPCS: 0296T; 0298T

== ENCOUNTER → 2020-01-09 08:31 | Outpatient (CLI) | payer MEDICARE, OTHER, SELFPAY ==
[2020-01-09 09:44] LABS: Prostate Specific Antigen 4.67 ng/mL (0.10-4.00)
== END ==
PROVIDERS: Family Provider Student in an Organized Health Care Education/Training Program; PCP Student in an Organized Health Care Education/Training Program; Referring Provider Specialist; Visit Provider Specialist
DX: N40.0 Benign prostatic hyperplasia without lower urinary tract symptoms (principal)
CPT/HCPCS: 36415; 84153

== ENCOUNTER → 2020-05-19 11:19 | Outpatient (CLI) | payer MEDICARE, OTHER, SELFPAY ==
[2020-05-19 13:27] LABS: Blood Urea Nitrogen 18 mg/dL (9-20); Calcium 9.8 mg/dL (8.4-10.2); Carbon Dioxide 31 mmol/L (22-32); Chloride 106 mmol/L (98-107); Estimated Glomerular Filt Rate > 60.0 mL/min (>60); Glucose 88 mg/dL (80-110); HEMOLYSIS < 15 (0-50); Magnesium 1.8 mg/dL (1.6-2.3); Potassium 4.2 mmol/L (3.4-5.1); Sodium 140 mmol/L (137-145)
== END ==
PROVIDERS: Family Provider Student in an Organized Health Care Education/Training Program; PCP Student in an Organized Health Care Education/Training Program; Referring Provider Student in an Organized Health Care Education/Training Program; Visit Provider Student in an Organized Health Care Education/Training Program
DX: E83.42 Hypomagnesemia (principal); R19.7 Diarrhea, unspecified
CPT/HCPCS: 36415; 80048; 83735

== ENCOUNTER 2020-07-31 20:24 | Emergency (ER) | payer MEDICARE, OTHER, SELFPAY ==
[2020-07-31 20:33] VITALS: BP 174/98; PULSE 105; RESP 29; TEMP 38.5; O2SAT 100; BMI 25.0
--- NOTE | 2020-07-31 20:49 | DI.RAD.S_ITS ---
PROCEDURE: XR CHEST 1V INDICATIONS: suspected sepsis TECHNIQUE: One view of the chest was acquired. COMPARISON: [facility], CR, XR CHEST 1V, 11/03/2019, 8:02. FINDINGS: Surgical changes and devices: None. Lungs and pleura: Lungs are clear. No pleural effusions or pneumothorax. Mediastinum: Mediastinal contours appear normal. Heart size is enlarged. Bones and chest wall: No suspicious bony lesions. Overlying soft tissues appear unremarkable. IMPRESSION: No acute pulmonary process. Dictated by: Meena Claire M.D. on 07/31/2020 at 21:47 Approved by: Meena Claire M.D. on 07/31/2020 at 21:47
[2020-07-31 21:09] LABS: Add Manual Diff / Slide Review NO; Basophils Absolute Auto 0 /uL (0-100); Basophils Percent Auto 0.3 % (0-2); Eosinophils Absolute Auto 200 /uL (0-450); Eosinophils Percent Auto 1.6 % (2-4); Hematocrit 44.4 % (41-53); Hemoglobin 15.2 g/dL (13.5-17.5); Lymphocytes Absolute Auto 900 /uL (1100-4500); Lymphocytes Percent Auto 7.7 % (25-40); Mean Corpuscular HGB Conc 34.1 % (30-36); Mean Corpuscular Hemoglobin 29.8 PG (26-34); Mean Corpuscular Volume 87.3 fL (80-100); Monocytes Absolute Auto 1500 /uL (0-900); Monocytes Percent Auto 13.2 % (3-14); Neutrophils Absolute Auto 9000 /uL (1500-7000); Neutrophils Percent Auto 77.2 % (50-75); Platelet Count 250 X10^3/uL (150-400); Red Blood Cell Count 5.09 X10^6/uL (4.5-5.9); Red Cell Distribution Width 14.2 % (11.6-14.8); White Blood Cell Count 11.6 X10^3/uL (4.5-11.0)
[2020-07-31 21:15] LABS: INR 1.1 (0.9-1.3); Prothrombin Time 12.5 SECONDS (10.1-12.7)
[2020-07-31 21:17] LABS: PTT Partial Thromboplastin Tim 32 SECONDS (26.4-36.2)
[2020-07-31 21:19] LABS: Alanine Aminotransferase 16 IU/L (<50); Albumin 4.1 g/dL (3.5-5.0); Albumin Globulin Ratio 1.6 (1.0-2.8); Alkaline Phosphatase 86 U/L (38-126); Aspartate Aminotransferase 20 IU/L (17-59); BUN Creatinine Ratio 28.4 (6-22); Bilirubin Total 0.6 mg/dL (0.2-1.3); Blood Urea Nitrogen 25 mg/dL (9-20); Calcium 9.6 mg/dL (8.4-10.2); Carbon Dioxide 27 mmol/L (22-32); Chloride 109 mmol/L (98-107); Estimated Glomerular Filt Rate > 60.0 mL/min (>60); Globulin 2.6 g/dL (1.7-4.1); Glucose 109 mg/dL (80-110); HEMOLYSIS < 15 (0-50); Lactate (Lactic Acid) 0.7 mmol/L (0.7-2.1); Lipase 67 U/L (23-300); Sodium 142 mmol/L (137-145); Total Protein 6.7 g/dL (6.3-8.2)
[2020-07-31 21:35] LABS: RBC Urine None Seen (0-5/HPF)
[2020-07-31 21:36] LABS: Procalcitonin 0.09 ng/mL (<0.5)
--- NOTE | 2020-07-31 21:37 | PC.NURSE ---
Pt gave urine sample, PVR check was 288, pt reports feeling relief from pressure after voiding but has been voiding small amounts frequently.
[2020-07-31 22:06] LABS: Bacteria Urine Many (>30); Culture Indicated Urine Specimen Cultured; WBC Urine 1-5/HPF (0-5/HPF)
--- NOTE | 2020-07-31 22:10 | ED_ITS ---
HPI - General Adult General Chief complaint: Urogenital-Male Stated complaint: barley peeing and hurts back pain feels funny Time Seen by Provider: 07/31/20 22:00 Source: patient Mode of arrival: Ambulatory Limitations: no limitations History of Present Illness HPI narrative: Patient is a 75-year-old male. He does have a history of BPH and is on medicine for this. He also has a history of urinary tract infections who is here for evaluation of difficulty urinating. He states that his lower back is hurting and he generally does not feel very well. He has never had a urinary catheter placed in the past. Has not tried anything for symptoms prior to arrival. He is taking his medications as directed. Related Data Home Medications Medication Instructions Recorded Confirmed tamsulosin [Flomax] 0.4 mg PO QDAY #0 cap 07/19/17 05/19/20 omeprazole 40 mg capsule,delayed 40 mg PO QDAY PRN cap 07/03/18 05/19/20 release aspirin 81 mg tablet,delayed 81 mg PO DAILY 01/07/19 05/19/20 release d-mannose PO 05/19/20 05/19/20 magnesium 200 mg tablet 200 mg PO DAILY 05/19/20 05/19/20 Previous Rx's Medication Instructions Recorded potassium chloride 10 mEq 40 meq PO DAILY #720 tab 09/02/19 tablet,extended release losartan 25 mg tablet 50 mg PO DAILY #90 tab 07/13/20 cephalexin 500 mg PO BID 7 Days #14 cap 07/31/20 Allergies Allergy/AdvReac Type Severity Reaction Status Date / Time lisinopril [LISINOPRIL] Allergy Mild feel Verified 07/31/20 20:33 strange Review of Systems Constitutional Constitutional: Reports chills, Reports fatigue, Denies fever(s) and Reports malaise Cardiovascular Cardiovascular: Denies chest pain and Denies dyspnea Respiratory Respiratory: Denies dyspnea Gastrointestinal Gastrointestinal: Reports abdominal pain (Lower abdomen), Denies nausea and Denies vomiting Genitourinary Genitourinary: Denies hematuria, Reports oliguria, Reports difficulty urinating, Denies dysuria, Denies testicular pain, Reports urinary frequency, Reports urinary hesitancy and Reports urinary urgency Genitourinary: Denies hematuria, Reports urinary frequency, Denies dysuria, Reports urinary hesitancy and Reports urinary urgency Musculoskeletal Musculoskeletal: Reports back pain (Lower back) Integumentary/Breasts Skin/Breast: Denies rash Endocrine Endocrine: Reports fatigue Hematologic/Lymphatic Hematologic/Lymphatic: Denies easy bleeding and Denies easy bruising Allergic/Immunologic Allergic/Immunologic: Denies urticaria Patient History Medical History Benign non-nodular prostatic hyperplasia with lower urinary tract symptoms (03/25/15) BPH (benign prostatic hyperplasia) BPH w urinary obs/LUTS Cancer of kidney (~1998) Elevated PSA Elevated PSA Essential hypertension (06/29/11) H/O adenomatous polyp of colon (~07/2017) History of kidney cancer History of UTI Kidney stones Multinodular goiter Neoplasm of kidney Nephrolithiasis Proctitis (~2008) Urinary calculi UTI (urinary tract infection) Surgical History Anesthesia History of nephrectomy (~1998) Status post colonoscopy (~2008) Social History Smoking Status: Never smoker Smoking Status: Never smoker alcohol intake frequency: 0-2 drinks per day Substance Use Type: does not use Exam Initial Vital Signs Initial Vital Signs: Vital Signs Temperature 101.3 F H 07/31/20 20:33 Pulse Rate 105 H 07/31/20 20:33 Respiratory Rate 29 H 07/31/20 20:33 Blood Pressure 174/98 H 07/31/20 20:33 Pulse Oximetry 100 07/31/20 20:33 Const General: cooperative and comfortable Limitations: mental status not altered HENMT Head: normal to inspection and normocephalic Resp Effort & Inspection: normal respiratory effort Auscultation: clear to auscultation bilaterally Cardio Rate: tachycardic Rhythm: regular rhythm GI Inspection: non-distended Palpation: soft, No firm and No tender Back/Spine/Pelvis Back: No CVA tenderness Skin Lesions: no lesions Rashes: no rashes Neuro General: patient alert, patient awake and patient oriented x3 Extrem General: normal to inspection and capillary refill normal Psych Appearance: grossly normal and well kempt Course Orders Ordered: ED Orders 07/31/20 20:49 XR chest 1V Stat EKG-12 Lead Stat RT Consult Eval and Treat Now 07/31/20 21:00 Complete Blood Count AUTO DIFF Stat Comprehensive Metabolic Panel Stat Lactate (Lactic Acid) Stat Lipase Stat Partial Thromboplastin Time Stat Procalcitonin Stat Prothrombin Time INR Stat 07/31/20 21:12 Blood Culture Stat 07/31/20 21:32 Urine Culture Stat Urine Microscopic Stat Discontinued Medications Acetaminophen (Acetaminophen 325 Mg Tablet) 650 mg PO NOW ONE Stop: 07/31/20 22:12 Last Admin: 07/31/20 22:26 Dose: 650 mg Documented by: TIKA Cephalexin HCl (Cephalexin 250 Mg Capsule) 500 mg PO NOW ONE Stop: 07/31/20 22:12 Last Admin: 07/31/20 22:27 Dose: 500 mg Documented by: TIKA Vital Signs Vital signs: Vital Signs - 8 hr 07/31/20 20:33 07/31/20 22:53 07/31/20 23:25 Temperature 101.3 F H Pulse Rate 105 H 89 82 Respiratory Rate 29 H 15 16 Blood Pressure 174/98 H 138/81 138/81 Pulse Oximetry 100 94 99 Medical Decision Making Lab Data Lab results reviewed: Yes I reviewed the patient's lab results. Result diagrams: 07/31/20 21:00 07/31/20 21:00 Labs: Lab Results 07/31/20 07/31/20 07/31/20 Range/Units 21:00 21:00 21:00 WBC 11.6 H (4.5-11.0) X10^3/uL RBC 5.09 (4.5-5.9) X10^6/uL Hgb 15.2 (13.5-17.5) g/dL Hct 44.4 (41-53) % MCV 87.3 (80-100) fL MCH 29.8 (26-34) PG MCHC 34.1 (30-36) % RDW 14.2 (11.6-14.8) % Plt Count 250 (150-400) X10^3/uL Neut % (Auto) 77.2 H (50-75) % Lymph % (Auto) 7.7 L (25-40) % [place] % (Auto) 13.2 (3-14) % Eos % (Auto) 1.6 L (2-4) % Baso % (Auto) 0.3 (0-2) % Neut # (Auto) 9000 H (2437-3524) /uL Lymph # (Auto) 900 L (4387-2782) /uL [place] # (Auto) 1500 H (0-900) /uL Eos # (Auto) 200 (0-450) /uL Baso # (Auto) 0 (0-100) /uL PT 12.5 (10.1-12.7) SECONDS INR 1.1 (0.9-1.3) APTT 32 (26.4-36.2) SECONDS Sodium 142 (137-145) mmol/L Potassium 4.0 (3.4-5.1) mmol/L Chloride 109 H (98-107) mmol/L Carbon Dioxide 27 (22-32) mmol/L BUN 25 H (9-20) mg/dL Creatinine 0.88 (0.66-1.25) mg/dL Estimated GFR > 60.0 (>60) mL/min BUN/Creatinine Ratio 28.4 H (6-22) Glucose 109 (80-110) mg/dL Lactate (0.7-2.1) mmol/L Calcium 9.6 (8.4-10.2) mg/dL Total Bilirubin 0.6 (0.2-1.3) mg/dL AST 20 (17-59) IU/L ALT 16 (<50) IU/L Alkaline Phosphatase 86 (38-126) U/L Total Protein 6.7 (6.3-8.2) g/dL Albumin 4.1 (3.5-5.0) g/dL Globulin 2.6 (1.7-4.1) g/dL Albumin/Globulin Ratio 1.6 (1.0-2.8) Lipase 67 (23-300) U/L Procalcitonin 0.09 (<0.5) ng/mL Urine RBC (0-5/HPF) Urine WBC (0-5/HPF) Urine Bacteria (None) Ur Culture Indicated? 07/31/20 07/31/20 Range/Units 21:00 21:32 WBC (4.5-11.0) X10^3/uL RBC (4.5-5.9) X10^6/uL Hgb (13.5-17.5) g/dL Hct (41-53) % MCV (80-100) fL MCH (26-34) PG MCHC (30-36) % RDW (11.6-14.8) % Plt Count (150-400) X10^3/uL Neut % (Auto) (50-75) % Lymph % (Auto) (25-40) % [place] % (Auto) (3-14) % Eos % (Auto) (2-4) % Baso % (Auto) (0-2) % Neut # (Auto) (8402-0920) /uL Lymph # (Auto) (7393-5651) /uL [place] # (Auto) (0-900) /uL Eos # (Auto) (0-450) /uL Baso # (Auto) (0-100) /uL PT (10.1-12.7) SECONDS INR (0.9-1.3) APTT (26.4-36.2) SECONDS Sodium (137-145) mmol/L Potassium (3.4-5.1) mmol/L Chloride (98-107) mmol/L Carbon Dioxide (22-32) mmol/L BUN (9-20) mg/dL Creatinine (0.66-1.25) mg/dL Estimated GFR (>60) mL/min BUN/Creatinine Ratio (6-22) Glucose (80-110) mg/dL Lactate 0.7 (0.7-2.1) mmol/L Calcium (8.4-10.2) mg/dL Total Bilirubin (0.2-1.3) mg/dL AST (17-59) IU/L ALT (<50) IU/L Alkaline Phosphatase (38-126) U/L Total Protein (6.3-8.2) g/dL Albumin (3.5-5.0) g/dL Globulin (1.7-4.1) g/dL Albumin/Globulin Ratio (1.0-2.8) Lipase (23-300) U/L Procalcitonin (<0.5) ng/mL Urine RBC None seen (0-5/HPF) Urine WBC 1-5/hpf (0-5/HPF) Urine Bacteria Many (>30) H (None) Ur Culture Indicated? Specimen cultured Urine Dip Bedside Urine Glucose Negative Bedside Urine Bilirubin - Negative Bedside Urine Ketone - Negative Urine Specific [place] 1.020 Bedside Urine Occult Blood - Negative Bedside Urine pH 6.0 Bedside Urine Protein - Negative Bedside Urine Urobilinogen - Negative Bedside Urine Nitrite - Negative Bedside Urine Leukocytes + 70 Esterase Point of care testing: Urine Dip Bedside Urine Glucose Negative Bedside Urine Bilirubin - Negative Bedside Urine Ketone - Negative Urine Specific [place] 1.020 Bedside Urine Occult Blood - Negative Bedside Urine pH 6.0 Bedside Urine Protein - Negative Bedside Urine Urobilinogen - Negative Bedside Urine Nitrite - Negative Bedside Urine Leukocytes + 70 Esterase ECG Data Attestation: I personally reviewed and interpreted this ECG as follows: Prior ECG tracings: not available for review Interpretation: Sinus rhythm Ventricular rate at 96 Left axis deviation LVH No ST T wave changes MDM Narrative Medical decision making narrative: Patient is nontoxic appearing. He was tachycardic and febrile upon arrival. He does have a history of prostate issues and has had urinary tract infections in the past. His urinalysis today is consistent with a urinary tract infection. His back pain he describes was his lower back. Does not over the area where his kidneys would be located. I do have low suspicion for pyelonephritis. He is not vomiting. He tolerated Tylenol and a dose of antibiotics by mouth here in the ER. He does have a postvoid residual just over 200 cc. I suspect that this is related to his prostate. We did discuss a urinary catheter versus holding on this. I feel that given the fact that it is just over 200 cc an that he is having minimal lower abdominal tenderness and the fact that he does have urinary tract infection that we should hold on a catheter for now. The patient agreed with this. He does have a relationship with a urologist. He is going to contact his urologist on Monday for follow-up. He was given strict return precautions and follow-up instructions. He expressed understanding agreement of plan. Discharge Plan Departure Patient Disposition: Home Clinical Impression: Urinary tract infection, Acute urinary retention Instructions: DI for Urinary Tract Infection (UTI), DI for Urinary Retention in Men Activity Restrictions/Additional Instructions: A prescription for antibiotics was electronically transmitted to safely. Please start taking it as directed. Contact your primary doctor and also the Urology Clinic here at the hospital on Monday for a follow-up. Return to the emergency department for any new or worsening symptoms. Prescriptions: New cephalexin 500 mg capsule 500 mg PO BID 7 Days Qty: 14 RF: 0 No Action tamsulosin [Flomax] 0.4 MG capsule,extended release 24hr 0.4 mg PO QDAY Qty: 0 RF: 0 potassium chloride 10 mEq tablet extended release 40 meq PO DAILY Qty: 720 RF: 1 losartan 25 mg tablet 50 mg PO DAILY Qty: 90 RF: 3 omeprazole 40 mg capsule,delayed release(DR/EC) 40 mg PO QDAY PRNRF: 0 magnesium 200 mg tablet 200 mg PO DAILY RF: 0 d-mannose PO RF: 0 aspirin 81 mg tablet,delayed release (DR/EC) 81 mg PO DAILY RF: 0 Referrals: Eric Jeffries MD [Primary Care Provider] -
[2020-07-31] MEDS: ACETAMINOPHEN 325 MG TABLET 650 MG PO (22:26)
[2020-07-31] MEDS: cephALEXin 250 MG CAPSULE 500 MG PO (22:27)
[2020-07-31 22:53] VITALS: BP 138/81; PULSE 89; RESP 15; O2SAT 94
[2020-07-31 23:25] VITALS: BP 138/81; PULSE 82; RESP 16; O2SAT 99
== END 2020-07-31 23:26 | disposition home or self-care (01) ==
PROVIDERS: Emergency Provider Emergency Medicine; Family Provider Student in an Organized Health Care Education/Training Program; PCP Student in an Organized Health Care Education/Training Program
DX: N39.0 Urinary tract infection, site not specified (principal); R00.0 Tachycardia, unspecified
CPT/HCPCS: 36415; 51798; 71045; 80053; 81003; 81015; 83605; 83690; 84145; 85025; 85610; 85730; 87040; 87086; 93005; 93010; 99284

== ENCOUNTER 2020-08-01 20:15 | Emergency (ER) | payer MEDICARE, OTHER, SELFPAY ==
[2020-08-01 20:27] VITALS: BP 140/88; PULSE 60; RESP 16; TEMP 36.4; O2SAT 96; BMI 24.7
--- NOTE | 2020-08-01 22:02 | ED.GENADULT ---
HPI - General Adult General Chief complaint: Urogenital-Male Stated complaint: UTI last night, getting worse Time Seen by Provider: 08/01/20 22:02 Source: patient Mode of arrival: Ambulatory Limitations: no limitations History of Present Illness HPI narrative: With a history of BPH seen last night in the emergency department and diagnosed with urinary tract infection as well. He was given a dose of Keflex in the emergency department picked up medications and took another dose mid day but has not been able to void since then. Currently is on tamsulosin. Last night he complained of right flank pain and fever last night. Comes in today for further evaluation. He does not describe significant abdominal pain, vomiting, diarrhea, cough, chest pain or palpitations Related Data Home Medications Medication Instructions Recorded Confirmed tamsulosin [Flomax] 0.4 mg PO QDAY #0 cap 07/19/17 05/19/20 omeprazole 40 mg capsule,delayed 40 mg PO QDAY PRN cap 07/03/18 05/19/20 release aspirin 81 mg tablet,delayed 81 mg PO DAILY 01/07/19 05/19/20 release d-mannose PO 05/19/20 05/19/20 magnesium 200 mg tablet 200 mg PO DAILY 05/19/20 05/19/20 Previous Rx's Medication Instructions Recorded potassium chloride 10 mEq 40 meq PO DAILY #720 tab 09/02/19 tablet,extended release losartan 25 mg tablet 50 mg PO DAILY #90 tab 07/13/20 cephalexin 500 mg PO BID 7 Days #14 cap 07/31/20 Allergies Allergy/AdvReac Type Severity Reaction Status Date / Time lisinopril [LISINOPRIL] Allergy Mild feel Verified 07/31/20 20:33 strange Review of Systems Review of Systems ROS Unobtainable: All systems reviewed & are unremarkable except as noted in HPI and below Patient History Medical History Benign non-nodular prostatic hyperplasia with lower urinary tract symptoms (03/25/15) BPH (benign prostatic hyperplasia) BPH w urinary obs/LUTS Cancer of kidney (~1998) Elevated PSA Elevated PSA Essential hypertension (06/29/11) H/O adenomatous polyp of colon (~07/2017) History of kidney cancer History of UTI Kidney stones Multinodular goiter Neoplasm of kidney Nephrolithiasis Proctitis (~2008) Urinary calculi UTI (urinary tract infection) Surgical History Anesthesia History of nephrectomy (~1998) Status post colonoscopy (~2008) Social History Smoking Status: Never smoker Smoking Status: Never smoker alcohol intake frequency: 0-2 drinks per day Substance Use Type: does not use Exam Narrative Exam Narrative: General: Healthy appearing, in no acute distress. Able to give a complete and coherent history. Well-nourished well-developed HEENT: Moist mucous membranes, normal sclera with reactive pupils, Neck: No JVD, supple Respiratory: Lungs are clear to auscultation, no wheezing no rales no rhonchi. Full and symmetrical air movement Cardiac: Regular rate and rhythm no murmurs no bruits Abdomen: Soft, nontender, good bowel tones, no flank pain Skin: Warm and dry, no rashes Neurologic: Grossly neurologically intact with no obvious asymmetries or abnormalities Extremities: No trauma, well perfused Psych: Cooperative, appropriate insight and affect Bedside ultrasound shows postvoid residual of 480 cc. Gamboa catheter is placed with difficulty. Stricture at the penile meatus seems to be part of the difficulty in placing a Gamboa. Once placed, he is draining yellow urine. Initial Vital Signs Initial Vital Signs: Vital Signs Temperature 97.6 F 08/01/20 20:27 Pulse Rate 60 08/01/20 20:27 Respiratory Rate 16 08/01/20 20:27 Blood Pressure 140/88 08/01/20 20:27 Pulse Oximetry 96 08/01/20 20:27 Course Orders Ordered: ED Orders 08/01/20 21:57 CMP [Comprehensive Metabolic Panel] Stat Complete Blood Count AUTO DIFF Stat Discontinued Medications Sodium Chloride (Normal Saline 0.9%) 1,000 mls @ 1,000 mls/hr IV BOLUS ONE Stop: 08/01/20 23:09 Last Infusion: 08/01/20 23:26 Dose: 0 mls/hr Documented by: Admin: 08/01/20 22:21 Dose: 1,000 mls/hr Documented by: FELICITA Ceftriaxone Sodium/Dextrose (Rocephin) 1 gm in 50 mls @ 100 mls/hr IV NOW ONE Stop: 08/01/20 22:40 Last Infusion: 08/01/20 23:13 Dose: 0 mls/hr Documented by: Admin: 08/01/20 22:21 Dose: 100 mls/hr Documented by: FELICITA Lidocaine HCl (Lidocaine 2% (Urojet) 5 Ml Gel) 5 ml TOP NOW ONE Stop: 08/01/20 22:13 Last Admin: 08/01/20 23:13 Dose: Not Given Documented by: FELICITA Vital Signs Vital signs: Vital Signs - 8 hr 08/01/20 20:27 08/01/20 23:21 Temperature 97.6 F Pulse Rate 60 57 L Respiratory Rate 16 16 Blood Pressure 140/88 156/89 H Pulse Oximetry 96 Medical Decision Making Medical Records Medical records reviewed: Yes I reviewed the patient's medical records. Lab Data Lab results reviewed: Yes I reviewed the patient's lab results. Result diagrams: 08/01/20 21:57 08/01/20 21:57 Labs: Lab Results 08/01/20 08/01/20 Range/Units 21:57 21:57 WBC 12.4 H (4.5-11.0) X10^3/uL RBC 4.88 (4.5-5.9) X10^6/uL Hgb 14.3 (13.5-17.5) g/dL Hct 42.9 (41-53) % MCV 87.9 (80-100) fL MCH 29.3 (26-34) PG MCHC 33.3 (30-36) % RDW 14.1 (11.6-14.8) % Plt Count 243 (150-400) X10^3/uL Neut % (Auto) 69.0 (50-75) % Lymph % (Auto) 14.9 L (25-40) % [place] % (Auto) 14.4 H (3-14) % Eos % (Auto) 1.4 L (2-4) % Baso % (Auto) 0.3 (0-2) % Neut # (Auto) 8500 H (2515-4280) /uL Lymph # (Auto) 1800 (3752-6184) /uL [place] # (Auto) 1800 H (0-900) /uL Eos # (Auto) 200 (0-450) /uL Baso # (Auto) 0 (0-100) /uL Sodium 138 (137-145) mmol/L Potassium 4.0 (3.4-5.1) mmol/L Chloride 108 H (98-107) mmol/L Carbon Dioxide 26 (22-32) mmol/L BUN 23 H (9-20) mg/dL Creatinine 0.72 (0.66-1.25) mg/dL Estimated GFR > 60.0 (>60) mL/min BUN/Creatinine Ratio 31.9 H (6-22) Glucose 109 (80-110) mg/dL Calcium 9.2 (8.4-10.2) mg/dL Total Bilirubin 1.0 (0.2-1.3) mg/dL AST 24 (17-59) IU/L ALT 16 (<50) IU/L Alkaline Phosphatase 66 (38-126) U/L Total Protein 6.5 (6.3-8.2) g/dL Albumin 3.7 (3.5-5.0) g/dL Globulin 2.8 (1.7-4.1) g/dL Albumin/Globulin Ratio 1.3 (1.0-2.8) MDM Narrative Medical decision making narrative: 75-year-old gentleman diagnosed with a urinary tract infection last night and possibility of acute urinary retention with only 200 cc appreciated and already on Flomax. Over the course of today that he is having increasing difficulty with urinating as well as some dysuria. Gamboa catheter is placed with difficulty and left in place. He is given another dose of ceftriaxone for presumed urinary tract infection. His white cell count is slightly increased. Urine culture from yesterday is preliminary but at this point is showing no growth at 12:00 p.m.. Will have him continue with prescribed course of Keflex and follow-up with his urologist, Dr. Thorne next week to see if he tolerates having his catheter removed. Asked him to be consistent about continuing with the Flomax in the intervening time. He is safe for home discharge and currently has no evidence of overwhelming infection, pyelonephritis or sepsis. Discharge Plan Departure Patient Disposition: Home Clinical Impression: Acute urinary retention Urinary tract infection Qualifiers: Urinary tract infection type: acute cystitis Hematuria presence: without hematuria Qualified Code(s): N30.00 - Acute cystitis without hematuria Instructions: How to Care for Your Gamboa Catheter -- Male, DI for Urinary Tract Infection (UTI), DI for Urinary Retention in Men Activity Restrictions/Additional Instructions: Thank you for coming back to the ER today You had 480 cc in your bladder prior to putting Gamboa catheter in. It is draining adequately at this time. Your urine has been sent for culture and continues to have quite a few bacteria. Your given another IV dose of antibiotic in the emergency department tonight and can finish your oral Keflex beginning tomorrow. Please make sure that you are very consistent about taking your tamsulosin daily You will need to schedule an appointment with Dr. Thorne for next week to discuss having your catheter removed and make sure that you are able to void spontaneously If you are have worsening symptoms or issues, please feel free to return to the emergency department Prescriptions: No Action tamsulosin [Flomax] 0.4 MG capsule,extended release 24hr 0.4 mg PO QDAY Qty: 0 RF: 0 potassium chloride 10 mEq tablet extended release 40 meq PO DAILY Qty: 720 RF: 1 losartan 25 mg tablet 50 mg PO DAILY Qty: 90 RF: 3 omeprazole 40 mg capsule,delayed release(DR/EC) 40 mg PO QDAY PRNRF: 0 magnesium 200 mg tablet 200 mg PO DAILY RF: 0 d-mannose PO RF: 0 aspirin 81 mg tablet,delayed release (DR/EC) 81 mg PO DAILY RF: 0 cephalexin 500 mg capsule 500 mg PO BID 7 Days Qty: 14 RF: 0 Referrals: Erci Jeffries MD [Primary Care Provider] -
--- NOTE | 2020-08-01 22:09 | PC.NURSE ---
patient has history of kydney cancer with a partial right nephrectomy. He also has BPH and is taking tamsulosin but has not taken it for two days.
[2020-08-01 22:16] LABS: Add Manual Diff / Slide Review NO; Basophils Absolute Auto 0 /uL (0-100); Basophils Percent Auto 0.3 % (0-2); Eosinophils Absolute Auto 200 /uL (0-450); Eosinophils Percent Auto 1.4 % (2-4); Hematocrit 42.9 % (41-53); Hemoglobin 14.3 g/dL (13.5-17.5); Lymphocytes Absolute Auto 1800 /uL (1100-4500); Lymphocytes Percent Auto 14.9 % (25-40); Mean Corpuscular HGB Conc 33.3 % (30-36); Mean Corpuscular Hemoglobin 29.3 PG (26-34); Mean Corpuscular Volume 87.9 fL (80-100); Monocytes Absolute Auto 1800 /uL (0-900); Monocytes Percent Auto 14.4 % (3-14); Neutrophils Absolute Auto 8500 /uL (1500-7000); Platelet Count 243 X10^3/uL (150-400); Red Blood Cell Count 4.88 X10^6/uL (4.5-5.9); Red Cell Distribution Width 14.1 % (11.6-14.8); White Blood Cell Count 12.4 X10^3/uL (4.5-11.0)
[2020-08-01] MEDS: CEFTRIAXONE 1 GM/50 ML FROZ.PIGGY IV (22:21)
[2020-08-01] MEDS: SODIUM CHLORIDE 0.9% 1,000 ML 1000 ML IV (22:21)
[2020-08-01 22:24] LABS: Alanine Aminotransferase 16 IU/L (<50); Albumin 3.7 g/dL (3.5-5.0); Albumin Globulin Ratio 1.3 (1.0-2.8); Alkaline Phosphatase 66 U/L (38-126); Aspartate Aminotransferase 24 IU/L (17-59); BUN Creatinine Ratio 31.9 (6-22); Blood Urea Nitrogen 23 mg/dL (9-20); Calcium 9.2 mg/dL (8.4-10.2); Carbon Dioxide 26 mmol/L (22-32); Chloride 108 mmol/L (98-107); Estimated Glomerular Filt Rate > 60.0 mL/min (>60); Globulin 2.8 g/dL (1.7-4.1); Glucose 109 mg/dL (80-110); HEMOLYSIS 36 (0-50); Sodium 138 mmol/L (137-145); Total Protein 6.5 g/dL (6.3-8.2)
--- NOTE | 2020-08-01 23:14 | PC.NURSE ---
Addendum entered by Nithin Porras 08/01/20 23:23: that was long enough to make it into the bladder. The cathetor is draining and 250mls of urine was collected. Shortly after the catheter was placed the patient reported that urine was leaking around the cath from his meatus. the balloon was 10cc and was fully inflated. I speculate that the meatus was dilated but the patient didnt complain with the cath advancing passed the prostate that the patient's prostate is a larger diameter bore than his meatus allowing for [id number] Original Note: the patient was a difficult cath. The first attempt was made with a 16fr that would not advance into the meatus. The second attempt was made with a 14 fr and that would not advance into the meatus. The third attempt was made with a 10 fr and that would advance with some moderate force. The balloon portion dilated the patient's meatus and allowed for passage into the urinary tract however the length of the catheter was not long enough to enter into the bladder. The 4th and final attempt was made with a 12 fr cathetor and t
[2020-08-01 23:21] VITALS: BP 156/89; PULSE 56; PULSE 57; RESP 16; O2SAT 95
[2020-08-01 23:30] VITALS: BP 158/77; PULSE 52; O2SAT 96
[2020-08-02] VITALS: PULSE 54; O2SAT 95
[2020-08-02 00:01] VITALS: BP 162/75; PULSE 51; O2SAT 96
[2020-08-02 00:23] VITALS: BP 156/79; PULSE 58; O2SAT 95
[2020-08-02 00:30] VITALS: BP 150/87; PULSE 55; O2SAT 95
--- NOTE | 2020-08-02 00:55 | PC.NURSE ---
Pt given large cath bag to go home with and instructed on the use of leg bag with verbal understanding.
== END 2020-08-02 00:56 | disposition home or self-care (01) ==
PROVIDERS: Emergency Provider Emergency Medicine; Family Provider Student in an Organized Health Care Education/Training Program; PCP Student in an Organized Health Care Education/Training Program
DX: N30.00 Acute cystitis without hematuria (principal)
CPT/HCPCS: 36415; 51701; 51798; 80053; 85025; 96365; 99284

== ENCOUNTER → 2020-08-05 16:16 | Outpatient (CLI) | payer MEDICARE, OTHER, SELFPAY | PROVIDERS: Family Provider Student in an Organized Health Care Education/Training Program; PCP Student in an Organized Health Care Education/Training Program; Visit Provider Specialist | DX: N39.0 Urinary tract infection, site not specified (principal); R33.9 Retention of urine, unspecified; Z46.6 Encounter for fitting and adjustment of urinary device | CPT/HCPCS: 51701; 51798; 87086 ==

== ENCOUNTER → 2020-09-01 15:47 | Outpatient (CLI) | payer MEDICARE, OTHER, SELFPAY | PROVIDERS: Family Provider Student in an Organized Health Care Education/Training Program; PCP Student in an Organized Health Care Education/Training Program; Visit Provider Specialist | DX: N39.0 Urinary tract infection, site not specified (principal) | CPT/HCPCS: 87077; 87086; 87147; 87186 ==

== ENCOUNTER → 2020-10-01 17:14 | Outpatient (CLI) | payer MEDICARE, OTHER, SELFPAY | PROVIDERS: Family Provider Student in an Organized Health Care Education/Training Program; PCP Student in an Organized Health Care Education/Training Program; Visit Provider Physician Assistant | DX: R30.0 Dysuria (principal) | CPT/HCPCS: 87077; 87086 ==

== ENCOUNTER → 2020-10-12 18:49 | Outpatient (CLI) | payer MEDICARE, OTHER, SELFPAY | PROVIDERS: Family Provider Student in an Organized Health Care Education/Training Program; PCP Student in an Organized Health Care Education/Training Program; Visit Provider Physician Assistant | DX: N34.3 Urethral syndrome, unspecified (principal) | CPT/HCPCS: 87077; 87086; 87186 ==

== ENCOUNTER → 2020-10-27 13:54 | Outpatient (CLI) | payer MEDICARE, OTHER, SELFPAY | PROVIDERS: Family Provider Student in an Organized Health Care Education/Training Program; PCP Student in an Organized Health Care Education/Training Program; Visit Provider Specialist | DX: R39.9 Unspecified symptoms and signs involving the genitourinary system (principal); N20.0 Calculus of kidney; N40.1 Benign prostatic hyperplasia with lower urinary tract symptoms; N13.8 Other obstructive and reflux uropathy; Z85.528 Personal history of other malignant neoplasm of kidney | CPT/HCPCS: 51798; 52000; 76872; 76942; 81002; 87077; 87086; 87147; 87186; 99215 ==

== ENCOUNTER 2020-11-05 08:39 | Emergency (ER) | payer MEDICARE, OTHER, SELFPAY ==
[2020-11-05 09:17] VITALS: BP 158/82; PULSE 60; RESP 16; TEMP 36.6; O2SAT 98; BMI 23.7
[2020-11-05 11:01] LABS: Bacteria Urine Many (>30); Culture Indicated Urine Specimen Cultured; RBC Urine 10-30/HPF (0-5/HPF); WBC Urine >100/HPF (0-5/HPF)
[2020-11-05 13:37] LABS: Add Manual Diff / Slide Review NO; Basophils Absolute Auto 0 /uL (0-100); Basophils Percent Auto 0.8 % (0-2); Eosinophils Absolute Auto 200 /uL (0-450); Eosinophils Percent Auto 3.2 % (2-4); Hematocrit 44.2 % (41-53); Hemoglobin 14.5 g/dL (13.5-17.5); Lymphocytes Absolute Auto 1000 /uL (1100-4500); Lymphocytes Percent Auto 19.3 % (25-40); Mean Corpuscular HGB Conc 32.9 % (30-36); Mean Corpuscular Hemoglobin 29.2 PG (26-34); Mean Corpuscular Volume 88.7 fL (80-100); Monocytes Absolute Auto 600 /uL (0-900); Monocytes Percent Auto 11.2 % (3-14); Neutrophils Absolute Auto 3300 /uL (1500-7000); Neutrophils Percent Auto 65.5 % (50-75); Platelet Count 247 X10^3/uL (150-400); Red Blood Cell Count 4.99 X10^6/uL (4.5-5.9); Red Cell Distribution Width 14.2 % (11.6-14.8); White Blood Cell Count 5.1 X10^3/uL (4.5-11.0)
[2020-11-05 13:47] LABS: Alanine Aminotransferase 17 IU/L (<50); Albumin 4.1 g/dL (3.5-5.0); Albumin Globulin Ratio 1.4 (1.0-2.8); Alkaline Phosphatase 72 U/L (38-126); Aspartate Aminotransferase 24 IU/L (17-59); BUN Creatinine Ratio 21.8 (6-22); Blood Urea Nitrogen 17 mg/dL (9-20); Calcium 9.8 mg/dL (8.4-10.2); Carbon Dioxide 32 mmol/L (22-32); Chloride 107 mmol/L (98-107); Estimated Glomerular Filt Rate > 60.0 mL/min (>60); Globulin 2.9 g/dL (1.7-4.1); Glucose 94 mg/dL (80-110); HEMOLYSIS < 15 (0-50); Lipase 40 U/L (23-300); Potassium 4.3 mmol/L (3.4-5.1); Sodium 141 mmol/L (137-145)
--- NOTE | 2020-11-05 13:54 | ED.MALEGU ---
HPI - Male Genitourinary General Chief complaint: Urogenital-Male Stated complaint: back/kidney pain Time Seen by Provider: 11/05/20 12:54 Source: patient and family Mode of arrival: Ambulatory Limitations: no limitations History of Present Illness HPI Narrative: This is a 75-year-old male who had cloudy urine and had a urine culture obtained around 10/27. He had this obtained with his urologist. Patient states he was unable to fill his antibiotic initially was sent to [facility] and they had difficulty getting a new prescription filled patient just started his oral antibiotics yesterday and has had 2 doses of nitrofurantoin. He has been afebrile no abdominal pain. Some mild nausea but no vomiting. He is not having any dysuria, urgency or frequency. No black or bloody stools. He has started develop some mild left flank pain. Patient has been catheterized in the past for urinary retention but is not currently. He has allergies to amoxicillin and Augmentin. His urine culture from 10/27/2020 shows Staphylococcus hominis as well as strep group B. patient has intermittent urine cultures that are positive and negative. Related Data Home Medications Medication Instructions Recorded Confirmed omeprazole 40 mg capsule,delayed 40 mg PO QDAY PRN cap 07/03/18 10/27/20 release aspirin 81 mg tablet,delayed 81 mg PO DAILY 01/07/19 10/27/20 release d-mannose PO 05/19/20 10/01/20 magnesium 200 mg tablet 200 mg PO DAILY 05/19/20 10/27/20 Previous Rx's Medication Instructions Recorded losartan 25 mg tablet 50 mg PO DAILY #90 tab 07/13/20 potassium chloride 10 mEq 40 meq PO DAILY #720 tab 08/31/20 tablet,extended release tamsulosin 0.4 mg capsule (Flomax) 0.4 mg PO QDAY #90 cap 09/24/20 nitrofurantoin macrocrystal 100 mg 100 mg PO BID 15 Days #30 cap 11/04/20 capsule Allergies Allergy/AdvReac Type Severity Reaction Status Date / Time lisinopril [LISINOPRIL] Allergy Mild feel Verified 11/05/20 09:17 strange amoxicillin [From Augmentin] AdvReac Intermediate Verified 11/05/20 09:17 clavulanic acid AdvReac Intermediate Verified 11/05/20 09:17 [From Augmentin] Review of Systems Review of Systems ROS Unobtainable: All systems reviewed & are unremarkable except as noted in HPI and below Patient History Medical History (Updated 11/05/20 @ 14:04 by eHnna Tucker DO) Benign non-nodular prostatic hyperplasia with lower urinary tract symptoms (03/25/15) BPH (benign prostatic hyperplasia) BPH w urinary obs/LUTS Cancer of kidney (~1998) Elevated PSA Elevated PSA Essential hypertension (06/29/11) H/O adenomatous polyp of colon (~07/2017) History of kidney cancer History of UTI Kidney stones Multinodular goiter Neoplasm of kidney Nephrolithiasis Proctitis (~2008) Urinary calculi Urinary retention UTI (urinary tract infection) Surgical History Anesthesia History of nephrectomy (~1998) Status post colonoscopy (~2008) Social History Smoking Status: Never smoker Smoking Status: Never smoker alcohol intake frequency: a few times a week Substance Use Type: does not use Exam Narrative Exam Narrative: GENERAL: Alert and oriented x three, well-nourished male in mild distress. HEENT: Head normocephalic, atraumatic, EOMI, pupils reactive, face symmetric, moist mucous membranes NECK: Supple, full range of motion CARDIOVASCULAR: Regular rate and rhythm without murmurs, rubs or gallops. RESPIRATORY: Breath sounds equal bilaterally, no wheezes rales or rhonchi. ABDOMEN: Soft, nontender. Normoactive bowel sounds all 4 quadrants. No guarding or rebound, rigidity, no mass : Mild left flank CVA tenderness, no right CVA tenderness. EXTREMITIES: Normal range of motion, no clubbing or edema. Neurovascularly intact NEUROLOGICAL: Cranial nerves II through XII grossly intact. Moving all extremities SKIN: Warm, dry, no petechiae, no rashes or lesions. Initial Vital Signs Initial Vital Signs: Vital Signs Temperature 98 F 11/05/20 09:17 Pulse Rate 60 11/05/20 09:17 Respiratory Rate 16 11/05/20 09:17 Blood Pressure 158/82 H 11/05/20 09:17 Pulse Oximetry 98 11/05/20 09:17 Course Orders Ordered: ED Orders 11/05/20 13:18 Complete Blood Count AUTO DIFF Stat Comprehensive Metabolic Panel Stat Lipase Stat Vital Signs Vital signs: Vital Signs - 8 hr 11/05/20 14:16 Pulse Rate 80 Respiratory Rate 12 Blood Pressure 148/72 H Pulse Oximetry 100 MDM - Male Genitourinary Lab Data Result diagrams: 11/05/20 13:18 11/05/20 13:18 Labs: Lab Results 11/05/20 11/05/20 11/05/20 Range/Units 10:42 13:18 13:18 WBC 5.1 (4.5-11.0) X10^3/uL RBC 4.99 (4.5-5.9) X10^6/uL Hgb 14.5 (13.5-17.5) g/dL Hct 44.2 (41-53) % MCV 88.7 (80-100) fL MCH 29.2 (26-34) PG MCHC 32.9 (30-36) % RDW 14.2 (11.6-14.8) % Plt Count 247 (150-400) X10^3/uL Neut % (Auto) 65.5 (50-75) % Lymph % (Auto) 19.3 L (25-40) % [place] % (Auto) 11.2 (3-14) % Eos % (Auto) 3.2 (2-4) % Baso % (Auto) 0.8 (0-2) % Neut # (Auto) 3300 (5239-0002) /uL Lymph # (Auto) 1000 L (7181-8832) /uL [place] # (Auto) 600 (0-900) /uL Eos # (Auto) 200 (0-450) /uL Baso # (Auto) 0 (0-100) /uL Sodium 141 (137-145) mmol/L Potassium 4.3 (3.4-5.1) mmol/L Chloride 107 (98-107) mmol/L Carbon Dioxide 32 (22-32) mmol/L BUN 17 (9-20) mg/dL Creatinine 0.78 (0.66-1.25) mg/dL Estimated GFR > 60.0 (>60) mL/min BUN/Creatinine Ratio 21.8 (6-22) Glucose 94 (80-110) mg/dL Calcium 9.8 (8.4-10.2) mg/dL Total Bilirubin 1.0 (0.2-1.3) mg/dL AST 24 (17-59) IU/L ALT 17 (<50) IU/L Alkaline Phosphatase 72 (38-126) U/L Total Protein 7.0 (6.3-8.2) g/dL Albumin 4.1 (3.5-5.0) g/dL Globulin 2.9 (1.7-4.1) g/dL Albumin/Globulin Ratio 1.4 (1.0-2.8) Lipase 40 (23-300) U/L Urine RBC 10-30/hpf H (0-5/HPF) Urine WBC >100/hpf H (0-5/HPF) Urine Bacteria Many (>30) H (None) Ur Culture Indicated? Specimen cultured Urine Dip Bedside Urine Glucose Negative Bedside Urine Bilirubin - Negative Bedside Urine Ketone - Negative Urine Specific [place] 1.015 Bedside Urine Occult Blood +/- Bedside Urine pH 4.0 Bedside Urine Protein - Negative Bedside Urine Urobilinogen - Negative Bedside Urine Nitrite - Negative Bedside Urine Leukocytes +++ 500 Esterase MDM Narrative Medical decision making narrative: Urine culture from 10/27 was reviewed. Patient has multi resistant he has only had 2 doses of nitrofurantoin encouraged to continue this and will contact if his urine culture from today shows resistance. Patient according to patient's prior culture this is appropriate antibiotic. Patient was asked to return if any worsening symptoms. He has started developed some flank pain but has prescription for 14 days. Discharge Plan Departure Patient Disposition: Home Clinical Impression: Pyelonephritis Instructions: DI for Kidney Infection Activity Restrictions/Additional Instructions: Follow up with your physician in the next week for recheck. Continue antibiotics, if you have only had 2 doses so far I would recommend continuing with her current antibiotic for the full 14 days treatment. Your urine culture shows resistance to majority of other antibiotics at this time. Please return for fevers, worsening abdominal, back or flank pain, persistent vomiting, difficulty with urination, black or bloody stools, lightheadedness or passing out or other new or concerning symptoms. Prescriptions: No Action losartan 25 mg tablet 50 mg PO DAILY Qty: 90 RF: 3 potassium chloride 10 mEq tablet extended release 40 meq PO DAILY Qty: 720 RF: 1 tamsulosin [Flomax] 0.4 mg capsule 0.4 mg PO QDAY Qty: 90 RF: 3 nitrofurantoin macrocrystal 100 mg capsule 100 mg PO BID 15 Days Qty: 30 RF: 0 omeprazole 40 mg capsule,delayed release(DR/EC) 40 mg PO QDAY PRNRF: 0 magnesium 200 mg tablet 200 mg PO DAILY RF: 0 d-mannose PO RF: 0 aspirin 81 mg tablet,delayed release (DR/EC) 81 mg PO DAILY RF: 0 Referrals: Eric Jeffries MD [Primary Care Provider] -
--- NOTE | 2020-11-05 13:55 | PC.NURSE ---
pt being treated for uti on Macrobid,pt having back pain and nausea.
[2020-11-05 14:16] VITALS: BP 148/72; PULSE 80; RESP 12; O2SAT 100
== END 2020-11-05 14:17 | disposition home or self-care (01) ==
PROVIDERS: Emergency Provider Emergency Medicine; Family Provider Student in an Organized Health Care Education/Training Program; PCP Student in an Organized Health Care Education/Training Program
DX: N10 Acute pyelonephritis (principal); B95.7 Other staphylococcus as the cause of diseases classified elsewhere
CPT/HCPCS: 36415; 80053; 81003; 81015; 83690; 85025; 87077; 87086; 87186; 99283

== ENCOUNTER → 2020-11-23 09:27 | Outpatient (CLI) | payer MEDICARE, OTHER, SELFPAY ==
[2020-11-23 09:37] LABS: Bacteria Urine None Seen; RBC Urine None Seen (0-5/HPF)
[2020-11-23 10:31] LABS: Appearance Urine UA CLOUDY; Bilirubin Urine UA NEGATIVE (NEGATIVE); Color Urine UA YELLOW; Glucose Urine UA TRACE g/dL (Negative); Ketones Urine UA NEGATIVE (NEGATIVE); Leukocyte Esterase Urine UA 1+ (NEGATIVE); Nitrite Urine UA NEGATIVE (Negative); Occult Blood Urine UA TRACE-INTACT (Negative); Protein Urine UA 1+ (Negative); Urobilinogen Urine UA 0.2 E.U./dL (0.2); pH Urine UA 8.5 (4.5-8.0)
[2020-11-23 10:38] LABS: WBC Urine 1-5/HPF (0-5/HPF)
[2020-11-23 10:39] LABS: Amorphous Sediment Urine 2+; Culture Indicated Urine Specimen Cultured; Triple Phosphate Crystal Urine Few
== END ==
PROVIDERS: Family Provider Student in an Organized Health Care Education/Training Program; PCP Student in an Organized Health Care Education/Training Program; Referring Provider Specialist; Visit Provider Specialist
DX: N30.01 Acute cystitis with hematuria (principal); R33.9 Retention of urine, unspecified; Z87.440 Personal history of urinary (tract) infections
CPT/HCPCS: 81001; 87077; 87086

== ENCOUNTER → 2020-11-27 07:57 | Outpatient (CLI) | payer MEDICARE, OTHER, SELFPAY ==
[2020-11-27 10:41] LABS: COVID19 -Nasal RAPID Negative (Negative)
== END ==
PROVIDERS: Family Provider Student in an Organized Health Care Education/Training Program; PCP Student in an Organized Health Care Education/Training Program; Visit Provider Specialist
DX: Z20.822 Contact with and (suspected) exposure to COVID-19 (principal)
CPT/HCPCS: 87635; C9803

== ENCOUNTER 2020-11-30 06:27 | Inpatient (IN) | payer MEDICARE, OTHER, SELFPAY ==
[2020-11-23 11:44] VITALS: BMI 23.7
[2020-11-30] VITALS (45 sets, daily range): BP systolic 78–179; BP diastolic 53–86; PULSE 42–91; RESP 8–21; TEMP 36.2–36.8; O2SAT 12–100; BMI 23.7
--- NOTE | 2020-11-30 | PATH_ITS ---
[facility] Accession Number: [id number] . 01 Material submitted: . prostate - PROSTATE ADENOMA . 01 Clinical history: . SIMPLE OPEN PROSTATECTOMY . 02 Diagnosis: Prostate Adenoma, Simple Open Prostatectomy (Weight 28 grams): Benign prostatic tissue with acute and chronic prostatis and glandular and stromal hyperplasia. Negative for malignancy. [facility] 12/02/2020 1426 Local . 02 Electronically signed: . Ariadna Vincent MD, Pathologist NPI- [id number] . 01 Gross description: . The specimen is received in formalin, labeled prostate adenoma and consists of a 28-gram disrupted prostate measuring 5.5 cm from apex to base by 6.3 cm from right to left by 3.8 cm from anterior to posterior. The external surface is high-pink with fibrinous adhesions and multiple areas of disruption. The specimen is inked as follows: Right anterior blue, right posterior green, left anterior yellow and left posterior black. The specimen is serially sectioned from apex to base into 12 slices to reveal high-white, focally cystic cut surfaces with multiple ill-defined high-white nodularities ranging from 0.2-3.0 cm. [employer] sections are submitted. . A1: Slice 1, left apical margin, perpendicularly sectioned. A2: Slice 1, right apical margin, perpendicularly sectioned. A3-A4: Slice 2, adjacent to apical margin, bisected and entirely submitted. A5-A6: Slice 3, left prostate, bisected. A7: Slice 3, right prostate. A8-A9 - Left prostate, slice 4, bisected. A10-A11: Slice 6, right prostate, bisected. A12: Slice 8, left prostate, anterior and posterior, union contract representative section. A13-A14: Right apical margin, perpendicularly sectioned. A15: Left apical margin, perpendicularly sectioned. A16-A17: [employer] nodule attached to base. ([id number]) /MRV 12/01/2020 [facility] . 02 Pathologist provided ICD-10: R33.9 . 02 CPT . 141219 Performed at: 01 [facility] [address] [address], [place], [place] [id number] MD Garth Mckee MD Phone: [phone] Performed at: [address] [facility] [id number] MD Carmen Amador MD Phone: [phone]
[2020-11-30] MEDS: LACTATED RINGERS 1,000 ML 42 ML IV ×2 (07:07→10:16)
[2020-11-30] MEDS: ACETAMINOPHEN 325 MG TABLET 975 MG PO (07:18)
[2020-11-30] MEDS: VANCOMYCIN 1,000 MG/200 ML PIGGYBACK 200 MG IV (07:21)
--- NOTE | 2020-11-30 07:25 | PM.PREOP ---
Pre-operative Note Interval Note History & Physical reviewed/Exam performed by Physician: Yes Changes to H&P: No
--- NOTE | 2020-11-30 07:38 | PM.HP.1 ---
History of Present Illness History of Present Illness Date Patient Seen: 11/30/20 Time Patient Seen: 07:38 Chief complaint: Simple Open Prostatectomy Narrative: The patient is a 75-year-old white male presenting today for scheduled simple open prostatectomy for urinary retention. He has a several year history of diagnosed BPH and on medical therapy. Despite medical therapy for management of bladder outlet obstruction he has had intermittent difficulties with urinary tract infection and more recently, with urinary retention. He has failed voiding trials and over the last approximately 2 months has been performing clean intermittent catheterization. He is carefully considered available options including continued CIC versus surgical intervention. He has chosen the latter. A lengthy and detailed discussion regarding the common side effects, possible complications, perioperative limitations/restrictions, and reasonable expectations of outcomes and recovery have been undertaken. He wishes to proceed. Patient History Medical History (Updated 11/23/20 @ 12:12 by Cherelle Mcgovern RN) Benign non-nodular prostatic hyperplasia with lower urinary tract symptoms (03/25/15) BPH (benign prostatic hyperplasia) BPH w urinary obs/LUTS Cancer of kidney (~1998) Eczema Elevated PSA Elevated PSA Essential hypertension (06/29/11) H/O adenomatous polyp of colon (~07/2017) History of kidney cancer History of UTI Kidney stones Multinodular goiter Neoplasm of kidney Nephrolithiasis Osteoarthritis Proctitis (~2008) Skin cancer Urinary calculi Urinary retention UTI (urinary tract infection) Surgical History Anesthesia History of nephrectomy (~1998) Status post colonoscopy (~2008) Family & Social History Social History: household members spouse Prior Living Arrangements House Safety & Behavioral: Feels Safe in Current Yes Environment Been Physically Hurt or No Threatened By a Person Suicidal Ideation Description None Suicide Plan Description No Plan Tobacco & Substance use: Smoking Status Former smoker alcohol intake current alcohol intake frequency a few times a month Substance Use Type does not use Meds Home Medications and Allergies Home Medications Medication Instructions Recorded Confirmed Type aspirin 81 mg tablet,delayed 81 mg PO DAILY 01/07/19 11/30/20 History release d-mannose 1,000 mg PO BID 05/19/20 11/30/20 History magnesium 200 mg tablet 200 mg PO SEEINSTR 05/19/20 11/30/20 History potassium chloride 10 mEq 40 meq PO DAILY #720 tab 08/31/20 11/30/20 Rx tablet,extended release losartan 25 mg tablet 25 mg PO BID 11/23/20 11/30/20 History nitrofurantoin macrocrystal 100 mg 100 mg PO BID 11/23/20 11/30/20 History capsule (Macrodantin) tamsulosin 0.4 mg capsule (Flomax) 0.4 mg PO BEDTIME 11/30/20 11/30/20 History Allergies Allergy/AdvReac Type Severity Reaction Status Date / Time amoxicillin [From Augmentin] AdvReac Severe Gastrointestinal Verified 11/30/20 07:00 Upset clavulanic acid AdvReac Severe Gastrointestinal Verified 11/30/20 07:00 [From Augmentin] Upset lisinopril [LISINOPRIL] AdvReac Mild feel Verified 11/30/20 07:00 strange Review of Systems Review of Systems ROS: Yes All systems reviewed with the patient and are negative except as otherwise documented Exam Vital Signs (past 8 hours): - 11/30/20 07:25 11/30/20 07:27 Temperature 98.1 F 98.1 F Pulse Rate 59 L 59 L Respiratory Rate 14 16 Blood Pressure 179/83 H 179/83 H Pulse Oximetry 95 95 Oxygen Delivery Method Room Air Narrative Exam Narrative: He is a tall, well-developed, and well-nourished white male no acute distress. Head/neck sclera clear and pupils are round and equal bilaterally. No visible evidence of adenopathy or JVD. Chest-equal, clear, and unlabored expansion bilaterally. Heart-regular rhythm and rate. No abnormal heart tones. Abdomen-bowel tones are normal and active. No palpable hernia, distension, tenderness, or mass. Objective Labs Result Diagrams: 11/30/20 07:20 11/30/20 07:20 Assessment & Plan Assessment and plan (1) Urinary retention: Status: Acute (2) History of kidney cancer: Status: Acute (3) BPH w urinary obs/LUTS: Status: Acute (4) History of UTI: Status: Acute Assessment & Plan narrative: Assessment: 1. Urinary retention. 2. History of UTI. Plan: 1. Proceed with simple open prostatectomy.
[2020-11-30 07:39] LABS: Hematocrit 42.9 % (41-53); Hemoglobin 14.4 g/dL (13.5-17.5)
[2020-11-30 07:51] LABS: BUN Creatinine Ratio 21.8 (6-22); Blood Urea Nitrogen 19 mg/dL (9-20); Calcium 9.5 mg/dL (8.4-10.2); Carbon Dioxide 29 mmol/L (22-32); Chloride 107 mmol/L (98-107); Estimated Glomerular Filt Rate > 60.0 mL/min (>60); Glucose 103 mg/dL (80-110); HEMOLYSIS < 15 (0-50); Potassium 3.6 mmol/L (3.4-5.1); Sodium 140 mmol/L (137-145)
[2020-11-30] MEDS: GENTAMICIN 160 MG in SODIUM CHLORIDE 0.9% 100 ML 104 ML IV (08:21)
[2020-11-30] MEDS: BUPIVACAINE LIPOSOME 266 MG/20 ML VIAL INJ (08:36)
[2020-11-30] MEDS: BUPIVACAINE 0.5% (PF) VIAL 30 ML INJ (08:36)
[2020-11-30] MEDS: EPINEPHrine 1 MG/ML IV (08:40)
--- NOTE | 2020-11-30 08:47 | SUR.OPER ---
Supine on padded OR bed, head on pillow, arms secured on padded arm boards at <90 degrees abduction, gel pad under bilateral arms, legs uncrossed, pillow under knees, safety belt at thigh, tape over blanket over lower legs, gel pad under bilateral heels. Table break slightly downwards at level of patients iliac crest. Patients glasses placed in glass pouch with patient label and placed in patients belongings bag in pre-op area. Patients upper dentures removed by anesthesia in OR and placed in denture container and patient label placed. Brought to PACU area with patient.
[2020-11-30 09:04] LABS: Appearance Urine UA CLEAR; Bilirubin Urine UA NEGATIVE (NEGATIVE); Color Urine UA YELLOW; Glucose Urine UA NEGATIVE (Negative); Ketones Urine UA NEGATIVE (NEGATIVE); Leukocyte Esterase Urine UA TRACE (NEGATIVE); Nitrite Urine UA NEGATIVE (Negative); Occult Blood Urine UA 2+ (Negative); Protein Urine UA 1+ (Negative); Specific Gravity Urine UA 1.015 (1.000-1.035); Urobilinogen Urine UA 0.2 E.U./dL (0.2)
[2020-11-30 09:32] LABS: Amorphous Sediment Urine 2+; Bacteria Urine Occasional (0-1); Culture Indicated Urine Specimen Cultured; RBC Urine 5-10/HPF (0-5/HPF); Sperm Urine PRESENT; WBC Urine 5-10/HPF (0-5/HPF)
--- NOTE | 2020-11-30 10:37 | P.OP_ITS ---
Operative Date/Time/Diagnoses Date of procedure: 11/30/20 Time of procedure: 10:37 Pre-op diagnosis: 1. Urinary retention Post-op diagnosis: same Procedure & Clinicians Procedure: 1. Simple open prostatectomy. Same procedure as scheduled: Yes Indications: 1. Urinary retention. 2. BPH. 3. History of UTI. Surgeon: Vaughn Thorne Deputy Director Of Public Works: Rylee Gagnon Click Yes if Unassisted: No Anesthesia Type: General, Spinal (Duramorph) and Local (1.33% Exparel) Operative Notes Findings: 1. Normal midline abdominal tissue planes. 2. 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 Severely trabeculated bladder with cellule formation. Closure Type: primary Specimen(s): other (Prostate adenoma) Applied: catheter (Number [address] hematuria catheter) Estimated Blood Loss (mL): 100 Blood products transfused: none Tourniquet time (min): 0 Procedure in detail: The patient was positioned in supine and was administered general anesthesia following placement of Duramorph spinal anesthetic. The abdomen, genitalia, and groin were then prepped and draped in sterile fashion. A 20 Scottish Gamboa catheter was then inserted in the bladder and the balloon was filled to 15 cc. A urine sample was obtained for urinalysis and reflex culture. 420 cc of sterile saline were then instilled in the Gamboa and the outlet clamped. Surgical assistance was indicated and required for this case due to the complexity and requirement of assistance in suturing, retracting, and hemostasis. A midline infraumbilical incision was then made and sharp, cautery, and blunt dissection were used to divide the layers a midline lower abdominal wall. The retroperitoneum was then entered and the space of Retzius and anterior bladder were clear of attached fat. A midline cystotomy was then made and the bladder irrigant suctioned free from the field. Next 0.5% Marcaine with epinephrine was used to infiltrate the mucosa and smooth muscle of the bladder wall circumferentially about the prostate. The cautery pen was then used to create a cyst circumferential incision around the bladder neck. Further blunt and cautery dissection were utilized to find the appropriate plane the surface of the adenoma. Continued blunt and cautery dissection were used to of free the bladder neck up from the base of the prostate in its entirety. Further blunt dissection was then carried out to mobilize the adenoma from within the fossa. Ultimately was delivered as 1 piece and submitted to pathology for routine gross and microscopic examination. Prostatic fossa was then packed with a dry lap sponge for 5 minutes. It was then removed inspection revealed very little residual bleeding, mainly at the 5 and 7:00 a.m. positions of the bladder neck. Hemostasis was attained with [id number] 2-0 PDS. The posterior lip, just distal to the trigone was then sutured to the inner prostatic capsule so as to create a smooth transition. A [address], 30 cc, hematuria catheter was then position in the lower urinary tract under direct visualization. The cystotomy was then closed in 2 layers. An inner since 0 muscular layer of 3-0 PDS was run using a vertical mattress technique. A serosal muscular layer closure was then conducted using a running vertical horizontal mattress using a Lembert technique. The bladder was then irrigated clear. The balloon was inflated to 30 cc and placed to gravity drainage. A 15 Scottish Franklin drain was then positioned in the space of Retzius and brought out through a separate stab incision to the right of the midline incision. It was secured to the skin with 2-0 silk using a Ryan sandal technique. The midline rectus abdominus fascia was then closed with a running 0 PDS beginning at each apex and then tying 1 another together at approximately the midpoint of the incision. Subcutaneous Demetria's fascia was then reapproximated using a running 3-0 Vicryl. Finally the skin was reapproximated using a running subcuticular 4-0 Monocryl. The skin surfaces were then cleaned and dried. Telfa dressing was then tailored to appropriate size for the incision line and the drain site. Over the Telfa was applied a transparent Op site dressing creating a Bioclusive finish. The drain was placed to a bulb self suction. Patient was then awakened, transferred to [facility], and transferred to PACU in stable condition. Complications: none Post-operative Condition: stable Disposition: PACU Plan for aftercare: Transfer to acute care.
--- NOTE | 2020-11-30 10:52 | SUR.PHASEI ---
Addendum entered by Renetta Munroe R.N. 11/30/20 11:07: upper dentures received in green cup from Melinda OLIVEIRA Original Note: Patient admitted to PACU after general/spinal anesthesia with oral airway in place. No further airway assistance required. Placed on 3L oxygen via oral airway for O2 sat 91%. Report received from Dr Payan and Melinda OLIVEIRA
--- NOTE | 2020-11-30 11:19 | SUR.PHASEI ---
Dr Thorne at bedside. Pt with small amount of sanguineous drainage from end of penis. 4x4 gauze applied around catheter below end of penis secured with gauze bow by Dr Thorne. New statlock placed. Gamboa with bloody urine no clots. Upper dentures returned to patients mouth.
[2020-11-30] MEDS: OXYCODONE IR 5 MG TABLET PO ×2 (11:38→19:04)
[2020-11-30] MEDS: hydrOXYzine pamoate 25 MG CAPSULE PO (11:39)
[2020-11-30] MEDS: ePHEDrine 50 MG/5 ML SYRINGE 10 MG IV (12:15)
[2020-11-30] MEDS: LACTATED RINGERS 1,000 ML 125 ML IV ×3 (12:26→23:29)
--- NOTE | 2020-11-30 12:28 | SUR.PHASEI ---
1206 Pt ready for transfer to floor. BP 92/53 1207 BP re-check 78/53 HR 42 IVF restarted. Abdomen re-checked. Tennis ball sized swelling to upper end of incision. Small amt of bloody drainage from penis under patient. YUMIKO emptied for 50ml. Pt alert, oriented, denied dizziness. [address] thorne notified by Krissy OLIVEIRA in OR of above finding. See order for Ephedrine. 1215 10mg Ephedrine given with improvement. [address] Payan updated on status. Dr Thorne stated he will see patient after operation.
--- NOTE | 2020-11-30 12:39 | SUR.PHASEI ---
Manual withdrawal of 80ml of bloody fluid with clots from johnston catheter by Krissy Stover. Now draining bloody fluid via the catheter.
--- NOTE | 2020-11-30 12:47 | SUR.PHASEI ---
1244 Patient johnston draining well after manual drainage. 380ml out total. Swelling to abdomen now softer and has decreased 1/2 of it's size. Pt states pain is better and it is feeling better
--- NOTE | 2020-11-30 12:56 | SUR.PHASEI ---
Gamboa flushed with 30ml of NS and small clot withdrawn. Gamboa draining bloody drainage.
[2020-11-30] MEDS: HYDROMORPHONE 2 MG INJ IV ×2 (13:37→13:57)
[2020-11-30] MEDS: BELLADONNA/OPIUM SUPPOSITORIES 1 EACH PR (13:39)
--- NOTE | 2020-11-30 13:53 | SUR.PHASEI ---
1348 Pt medicated with Dilaudid and B&O suppository. Complaint of increased abd pain/bladder pain and some new pain to back. Turned, no sign of bruising or swelling. Abdomen with tennis ball size swelling returned. Chux changed for small amt of blood. Catheter with scant blood. Dr Thorne notified.
--- NOTE | 2020-11-30 14:07 | SUR.PHASEI ---
Patient johnston catheter manually irrigated by Dr Thorne starting at 1358 with a large amount of normal saline with return of blood clots and blood.
--- NOTE | 2020-11-30 14:28 | SUR.PHASEI ---
Dr Thorne increased NS in johnston balloon up to 90ml. New catheter bag placed. continues with manual irrigation.
--- NOTE | 2020-11-30 14:53 | SUR.PHASEI ---
Dr Thorne completed manual irrigation with NS. 60ml of fluid in new catheter back is bag is NS. Traction placed with cloth tape by Dr Thorne. Abdomen has soften again and hard swelling is now soft though still present. Pt awake, alert, states pain is 2/10. No nausea.
--- NOTE | 2020-11-30 15:11 | SUR.PHASEI ---
Pt's , Susanna, updated on delay and status.
--- NOTE | 2020-11-30 15:35 | SUR.PHASEI ---
Abdomen remains soft. Urine draining freely - no clots noted
--- NOTE | 2020-11-30 15:52 | SUR.PHASEI ---
Dr Thorne here to see patient at 1545. Gamboa traction remains in place. Gamboa draining well with urine and dark colored blood. No clots. Pt turned. Pad changed. Pt on room air. Pain 2/10. Abdomen soft, small soft ball just above dressing. No change to abd dressing. Khris with min bloody drainage. Tolerating ice chips.
--- NOTE | 2020-11-30 16:42 | SUR.PHASEI ---
Patient transferred to room 231 by this Rn via bed. Handover at bedside to Catherine Rn with evaluation of dressings, johnston & YUMIKO/salma & soft abdomen with slight remaining bulge also soft. Bed in locked position and low. Pt resting, alert, oriented adn pain 2/10.
--- NOTE | 2020-11-30 16:43 | SUR.PHASEI ---
1609 Dr hollins by to see patient, evaluate catheter and drainage. Notified of patient HR up to 85-105, mostly 90-100. See new order for H&H.
[2020-11-30] MEDS: ACETAMINOPHEN 325 MG TABLET 650 MG PO (19:04)
[2020-11-30 19:39] LABS: Add Manual Diff / Slide Review NO; Basophils Absolute Auto 0 /uL (0-100); Basophils Percent Auto 0.1 % (0-2); Eosinophils Absolute Auto 0 /uL (0-450); Hematocrit 35.2 % (41-53); Hemoglobin 11.5 g/dL (13.5-17.5); Lymphocytes Absolute Auto 400 /uL (1100-4500); Lymphocytes Percent Auto 2.5 % (25-40); Mean Corpuscular HGB Conc 32.6 % (30-36); Mean Corpuscular Hemoglobin 28.9 PG (26-34); Mean Corpuscular Volume 88.9 fL (80-100); Monocytes Absolute Auto 1300 /uL (0-900); Monocytes Percent Auto 7.7 % (3-14); Neutrophils Absolute Auto 14600 /uL (1500-7000); Neutrophils Percent Auto 89.7 % (50-75); Platelet Count 251 X10^3/uL (150-400); Red Blood Cell Count 3.96 X10^6/uL (4.5-5.9); Red Cell Distribution Width 14.5 % (11.6-14.8); White Blood Cell Count 16.3 X10^3/uL (4.5-11.0)
[2020-11-30] MEDS: NITROFURANTOIN ER 100 MG CAPSULE PO (21:50)
[2020-12-01] VITALS (10 sets, daily range): BP systolic 123–170; BP diastolic 61–93; PULSE 70–101; RESP 16–21; TEMP 36.9–37.6; O2SAT 94–98
[2020-12-01] MEDS: OXYCODONE IR 5 MG TABLET PO ×5 (03:55→23:51)
--- NOTE | 2020-12-01 06:53 | PC.NURSE ---
Coremaking Machine Setter Note-Gamboa catheter manually irrigated twice for removal of clots and pressure, urine remains maroon color, total UOP 800ml for night. 15ml sang fluid from YUMIKO, abdominal dressings D/I, oxycodone given per prn order. VSS.
--- NOTE | 2020-12-01 07:44 | PM.PN.1 ---
Subjective Subjective Date Patient Seen: 12/01/20 Time Patient Seen: 07:44 Interval history: The patient has postoperative day 1. Status post simple open prostatectomy. Overall the night without event 4. Nursing did irrigate twice for small clot retrieval. He denies significant postoperative pain and less catheter occludes. He is tolerating ample p.o. fluids. He elected not to eat tender last evening. Denies nausea and vomiting. Exam Vital Signs (past 8 hours): - 12/01/20 04:15 Temperature 98.4 F Pulse Rate 70 Respiratory Rate 16 Blood Pressure 123/61 Pulse Oximetry 95 Oxygen Delivery Method Room Air Oxygen Flow Rate 0 Narrative Exam Narrative: The patient is resting and recumbent and bad and no acute distress. Chest-equal and unlabored expansion bilaterally. Heart-normal sinus rhythm. Abdomen-not distended or tender. Dressings and drain site intact. Drain has serosanguineous can not output. Gamboa indwelling an traction has released somewhat. Outflow is a light maroon without clot. Objective Labs Result Diagrams: 11/30/20 19:33 11/30/20 07:20 Labs: Laboratory Results - last 24 hr 11/30/20 11/30/20 11/30/20 06:30 07:20 07:20 WBC RBC Hgb 14.4 Hct 42.9 MCV MCH MCHC RDW Plt Count Neut % (Auto) Lymph % (Auto) [place] % (Auto) Eos % (Auto) Baso % (Auto) Neut # (Auto) Lymph # (Auto) [place] # (Auto) Eos # (Auto) Baso # (Auto) Sodium 140 Potassium 3.6 Chloride 107 Carbon Dioxide 29 BUN 19 Creatinine 0.87 Estimated GFR > 60.0 BUN/Creatinine Ratio 21.8 Glucose 103 Calcium 9.5 Urine Color Urine Appearance Urine pH Ur Specific [place] Urine Protein Urine Glucose (UA) Urine Ketones Urine Occult Blood Urine Nitrate Urine Bilirubin Urine Urobilinogen Ur Leukocyte Esterase Urine RBC Urine WBC Amorphous Sediment Urine Bacteria Urine Sperm Ur Culture Indicated? Nasal Screen MRSA (PCR) Blood Type O Positive Antibody Screen Negative 11/30/20 11/30/20 11/30/20 08:30 18:00 19:33 WBC 16.3 H RBC 3.96 L Hgb 11.5 L Hct 35.2 L MCV 88.9 MCH 28.9 MCHC 32.6 RDW 14.5 Plt Count 251 Neut % (Auto) 89.7 H Lymph % (Auto) 2.5 L [place] % (Auto) 7.7 Eos % (Auto) 0.0 L Baso % (Auto) 0.1 Neut # (Auto) 99413 H Lymph # (Auto) 400 L [place] # (Auto) 1300 H Eos # (Auto) 0 Baso # (Auto) 0 Sodium Potassium Chloride Carbon Dioxide BUN Creatinine Estimated GFR BUN/Creatinine Ratio Glucose Calcium Urine Color Yellow Urine Appearance Clear Urine pH 8.0 Ur Specific [place] 1.015 Urine Protein 1+ H Urine Glucose (UA) Negative Urine Ketones Negative Urine Occult Blood 2+ H Urine Nitrate Negative Urine Bilirubin Negative Urine Urobilinogen 0.2 Ur Leukocyte Esterase Trace H Urine RBC 5-10/hpf H Urine WBC 5-10/hpf H Amorphous Sediment 2+ Urine Bacteria Occasional (0-1) Urine Sperm Present Ur Culture Indicated? Specimen cultured Nasal Screen MRSA (PCR) Negative for mrsa Blood Type Antibody Screen PFSH Medical History (Updated 11/23/20 @ 12:12 by Cherelle Mcgovern RN) Benign non-nodular prostatic hyperplasia with lower urinary tract symptoms (03/25/15) BPH (benign prostatic hyperplasia) BPH w urinary obs/LUTS Cancer of kidney (~1998) Eczema Elevated PSA Elevated PSA Essential hypertension (06/29/11) H/O adenomatous polyp of colon (~07/2017) History of kidney cancer History of UTI Kidney stones Multinodular goiter Neoplasm of kidney Nephrolithiasis Osteoarthritis Proctitis (~2008) Skin cancer Urinary calculi Urinary retention UTI (urinary tract infection) Surgical History Anesthesia History of nephrectomy (~1998) Status post colonoscopy (~2008) Social History household members: spouse Smoking Status: Former smoker alcohol intake: current Assessment & Plan Assessment & Plan narrative: Assessment: 1. Stable postop day 1. Status post simple open prostatectomy. 2. Pathology pending. Plan: 1. Encourage p.o. fluids and monitor catheter patency and output. 2. Follow-up pathology when report final. 3. Continue current traction. Plan to re-evaluate release later this day. Quality VTE Deep Vein Thrombosis/Pulmonary Embolism Present on Admission: No
[2020-12-01] MEDS: LOSARTAN 25 MG TABLET PO ×2 (08:31→21:07)
[2020-12-01] MEDS: POTASSIUM CHLORIDE 10 MEQ TAB 40 MEQ PO (08:36)
[2020-12-01] MEDS: MAGNESIUM OXIDE 400 MG TABLET 200 MG PO (08:36)
[2020-12-01] MEDS: NITROFURANTOIN ER 100 MG CAPSULE PO ×2 (08:37→21:08)
[2020-12-01] MEDS: LACTATED RINGERS 1,000 ML 125 ML IV (08:38)
[2020-12-01] MEDS: BELLADONNA/OPIUM SUPPOSITORIES 1 EACH PR ×3 (08:39→19:46)
--- NOTE | 2020-12-01 13:54 | PC.NURSE ---
PT MANUALLY IRRIGATED X 3 THIS AM FOR C/O PRESSURE AND DECREASED URINARY DRAINAGE PER MISHRA - VIGOROUSLY IRRIGATED FOR REMOVAL OF SEVERAL SMALL CLOTS- URINE LIGHTENING UP LATER THIS SHIFT- DR BOURNE HERE RIGHT AFTER LUNCH TO RELEASE TENSION ON MISHRA - PT ABLE TO STAND AND TRANSFER OVER TO CHAIR WHERE HE IS NAPPING AT PRESENT- OXYCODONE AND B&O SUPPOSITORY PRN- TOLERATING REGULAR DIET WELL
--- NOTE | 2020-12-01 16:36 | CM.DANOTE ---
DCP/Assessment: Reviewed chart. Patient is a 75yr old male admitted to [facility] for Prostatectomy. PCP is Dr. Jeffries. Primary payor is 1)Medicare 2) for Life. Spoke briefly with RN/Dejah re: status. She reports patient on bed rest after procedure for urinary retention. It is anticipated that patient will be up and around tomorrow. At this time there are no anticipated d/c planning needs but CM team will continue to follow. P: Anticipate home once medically stable. Nursing reports that patient is I at baseline. OSIRIS Puckett Discharge Planning/Care Management Advanced directive, confirm from FAMILY Start: 11/30/20 17:11 Freq: Q24H Status: Complete Protocol: Document 12/01/20 09:12 TJB (Rec: 12/01/20 09:12 TJB [id number]) Advance Directive, confirm on record Time 09:12 Person contacted pt Copy received No CM Discharge Assessment Start: 12/01/20 16:31 Freq: Status: Active Protocol: Document 12/01/20 16:31 KJS (Rec: 12/01/20 16:35 KJS [id number]) Discharge Planning Assessment Assigned Networking Technician OSIRIS Puckett Contact Information Susanna Holder # [phone] Advance Directives? Yes Advance Directives on File No History Provided By Medical Record Prior Living Arrangements House Household Members spouse Type of transporation used prior to Drives own vehicle admit Independent with ADL's Yes: Per RN patient I in ADL 's. Is patient alert and oriented? Yes Caregiver for Another No Barriers to Discharge No Comment None identified by nursing. Discharge Plan Home Transportation Arrangement Family to provide transport. Referrals Initiated Other Additional Comment CM team following in needs arise. Review Status In Process Next Review Type Continued Stay Review Pre-Anesthesia Assessment Start: 11/23/20 11:44 Freq: Status: Complete Protocol: Document 11/23/20 11:44 CAB (Rec: 11/23/20 12:35 CAB [id number]) Pre-Anesthesia Assessment Preferred Name Sung Patient Information Reviewed Via Phone Assessment Assessment Completed With Patient Comment COVID screen @ 11/27/20 Primary Care Provider Eric Jeffries Seen Specialist in Last 12 Months Yes Specialist Seen Emergency,Urologist Primary Language Mauritanian Machine Group Leader Required No Height 190.5 cm Weight 86.183 kg Body Mass Index (BMI) 23.7 Hearing Ability Normal Visual Assist Glasses Dentition Type Teeth, Natural Present,Full- Upper Barriers to Learning None Hx Anesthesia Reactions Yes: Slow to wake Hx Family Anesthesia Reaction No Hx Malignant Hyperthermia No Hx Blood Transfusions No Anesthesia Review Requested No alcohol intake current alcohol intake frequency a few times a week Smoking Status Former smoker how long ago did patient quit smoking Quit age 20 Substance Use Type does not use Pain Present Denied Pain History of Falling (Recent or History of No ) Patient is completely paralyzed or No completely immobile Mental Status Oriented to own ability Is patient on oxygen? No Does patient have BALL/SOB No Hx Sleep Apnea No Currently Taking a Beta Rosalba No Can You Climb a Flight of Stairs Without Yes SOB Hx Chest Pain Yes: r/t acid reflux Hx SOB No Hx Syncope or Dizziness No Anti-Coagulant Therapy No Has a Fx Artist No Cardiac Testing No Hx Pacemaker/ICD No Pacemaker Rep Required? No Diet Type At Home Regular dysphagia No Gastrointestinal Symptoms Reflux Bladder Pattern Retention,Urgency Urinary Catheter Present No Hx Urinary Self Catheterization Yes: Self cath TID Diabetes No Hx Drug Resistant Organism No Presence of External or Internal Medical Yes: Cath equipment Devices Have you had any close contact with No someone diagnosed with COVID-19? Marital Status Lives With spouse Prior Living Arrangements House Number of Floors (Floors) One Floor Support System Spouse Does the Patient Have Assistance After Yes Surgery Patient Discharge Plan Description Return Home Comment Pt advised 3 day length of stay per surgeon Feels Safe in Current Environment Yes Been Physically Hurt or Threatened By a No Person in Current Environment Do you have thoughts of harming yourself None or others? Are you currently considering suicide? No Do you have a plan to hurt yourself or No Plan others? Do You Have Any Spiritual Beliefs That No May Affect Your HC Choices? Do You Have Any Cultural Practices That No May Affect Your HC Choices? Comment Moravian Who Can We Speak to About Patient's Care Family, friends Identifying Code for Release of Patient Declines to issue Information Health Care Proxy/Next of Kin Susanna () Health Care Proxy Emergency Contact Name Susanna () Emergency Contact Advance Directives? Yes Advance Directives on File No Requested Patient Bring Advanced Yes Directives DOS Power of Church Supervisor Yes Power of Church Supervisor Name Susanna () Power of Church Supervisor PAC Instructions Durable medical equipment, Medications to take/avoid, Nasal antibiotic,No ETOH/ petroleum product on skin DOS, NPO,Post-op transportation, Sturdy shoes/comfortable clothes,Do not bring valuables and remove jewelry
--- NOTE | 2020-12-01 17:16 | PC.NURSE ---
Assumed care of Pt @ 1500, Requiring multiple manual irrigation of moderate blood clots, leaking around johnston with increased pressure. Output is burgandy at present. continue to irrigate PRN, B& O supp for spasm and oxycodone for pain. Pt back to bed with SBA.
[2020-12-01] MEDS: SODIUM CHLORIDE 0.9% FLUSH 10 ML IV (21:08)
[2020-12-02] VITALS (7 sets, daily range): BP systolic 107–145; BP diastolic 60–74; PULSE 82–110; RESP 17–19; TEMP 36.2–37; O2SAT 93–97
[2020-12-02] MEDS: BELLADONNA/OPIUM SUPPOSITORIES 1 EACH PR ×2 (02:53→22:15)
[2020-12-02] MEDS: OXYCODONE IR 5 MG TABLET PO ×2 (05:17→20:54)
[2020-12-02] MEDS: HYDROMORPHONE 0.5 MG INJ IV (05:22)
[2020-12-02] MEDS: SODIUM CHLORIDE 0.9% FLUSH 10 ML IV ×3 (05:22→20:55)
--- NOTE | 2020-12-02 06:42 | PC.NURSE ---
7pm-7am Shift Note-Patient's urine remains red, minimal clots, irrigated 1-2 per shift, urine leaks around Gamboa catheter, total UOP for eves 1150ml and 875ml for night. Patient had more spasms and pain in lower abdomen, oxycodone, B&O suppository, IV Dilaudid, and ice packs used for comfort. Temp 99.7 with mild tachycardia around 100 at midnight, afebrile and NSR by am.
--- NOTE | 2020-12-02 07:37 | P.PN_ITS ---
Subjective Subjective Date Patient Seen: 12/02/20 Time Patient Seen: 07:37 Interval history: Patient is postoperative day 2. Status post simple open prostatectomy. He denies interval complaints other than bladder spasms. Belladonna and opium suppositories have provided good relief. He only ambulated a bit in the room and sat in chair yesterday. He is tolerating general diet. He is passing flatness but has not had a bowel movement. Exam Vital Signs (past 8 hours): - 12/01/20 23:50 12/02/20 03:09 Temperature 99.7 F H 98.6 F Pulse Rate 101 H 97 H Respiratory Rate 20 17 Blood Pressure 150/69 H 145/74 H Pulse Oximetry 94 94 Oxygen Delivery Method Room Air Oxygen Flow Rate 0 Narrative Exam Narrative: The patient is resting comfortably in bed in no distress. Chest-equal and unlabored expansion bilaterally. Heart-normal sinus rhythm. Abdomen-bowel tones are active. Abdomen is flat without distention. Incisional dressing and YUMIKO drain intact. [place]-outflow is nearly clear, just of light tinge of pink without clot. Objective Labs Result Diagrams: 11/30/20 19:33 11/30/20 07:20 [facility] Medical History Benign non-nodular prostatic hyperplasia with lower urinary tract symptoms (03/25/15) BPH (benign prostatic hyperplasia) BPH w urinary obs/LUTS Cancer of kidney (~1998) Eczema Elevated PSA Elevated PSA Essential hypertension (06/29/11) H/O adenomatous polyp of colon (~07/2017) History of kidney cancer History of UTI Kidney stones Multinodular goiter Neoplasm of kidney Nephrolithiasis Osteoarthritis Proctitis (~2008) Skin cancer Urinary calculi Urinary retention UTI (urinary tract infection) Surgical History Anesthesia History of nephrectomy (~1998) Status post colonoscopy (~2008) Social History household members: spouse Smoking Status: Former smoker alcohol intake: current Assessment & Plan Assessment & Plan narrative: Assessment: 1. Stable postop day 2. Status post simple open prostatectomy. 2. Pathology pending Plan: 1. Continued encouragement for increase in diet and ambulation. 2. Follow-up pathology when final. Possible discharge later this day. Quality VTE Deep Vein Thrombosis/Pulmonary Embolism Present on Admission: No
[2020-12-02] MEDS: POTASSIUM CHLORIDE 10 MEQ TAB 40 MEQ PO (08:12)
[2020-12-02] MEDS: NITROFURANTOIN ER 100 MG CAPSULE PO ×2 (08:12→20:54)
[2020-12-02] MEDS: MAGNESIUM OXIDE 400 MG TABLET 200 MG PO (08:12)
[2020-12-02] MEDS: BISACODYL 10 MG SUPP PR (09:31)
[2020-12-02] MEDS: ONDANSETRON 4 MG/2 ML INJ IV (14:16)
--- NOTE | 2020-12-02 16:12 | PC.NURSE ---
Addendum entered by Marcela Valadez R.N. 12/02/20 16:16: RN stated that there was about 500mL of urine output from previous shift, it just did not get charted yet. Original Note: Patient sitting up in chair. RN entered room for assessment. RN asked patient about pain, patient stated that he had some discomfort around johnston catheter site. RN checked johnston catheter bag and there was less than 50 mL in bag. Patient's spouse stated it had not been emptied all day nor flushed. RN flushed johnston per order with 40 mL of normal saline. Will continue to monitor patient's output and pain.
[2020-12-02] MEDS: hydrOXYzine pamoate 25 MG CAPSULE PO (20:54)
--- NOTE | 2020-12-02 22:36 | PC.NURSE ---
Dr. Thorne called regarding patient's urine output of 110 mL for the evening shift. Orders received for BMP from lab and bladder scan.
[2020-12-02 23:18] LABS: BUN Creatinine Ratio 17.4 (6-22); Blood Urea Nitrogen 25 mg/dL (9-20); Carbon Dioxide 29 mmol/L (22-32); Chloride 100 mmol/L (98-107); Estimated Glomerular Filt Rate 48.1 mL/min (>60); Glucose 140 mg/dL (80-110); HEMOLYSIS < 15 (0-50); Potassium 4.3 mmol/L (3.4-5.1); Sodium 133 mmol/L (137-145)
[2020-12-02] MEDS: SODIUM CHLORIDE 0.9% 500 ML 1000 ML IV (23:36)
[2020-12-03] VITALS: BP 130/74; PULSE 81; RESP 18; TEMP 36.8; O2SAT 96
--- NOTE | 2020-12-03 00:02 | PC.NURSE ---
Prior RN contacted Fadumo re: low BP, low UO, & low sodium. Order placed for 500 mL 0.9NS bolus followed w/ 0.45NS at 100/hr. Pt's sodium at 133, this RN contacted provider to double check order of .045NS, provider confirmed.
[2020-12-03] MEDS: SODIUM CHLORIDE 0.45% 1,000 ML 100 ML IV (00:15)
[2020-12-03] MEDS: OXYCODONE IR 5 MG TABLET PO ×2 (03:49→08:21)
[2020-12-03] MEDS: BELLADONNA/OPIUM SUPPOSITORIES 1 EACH PR (03:49)
[2020-12-03] MEDS: hydrOXYzine pamoate 25 MG CAPSULE PO (03:49)
[2020-12-03 04:17] VITALS: BP 127/68; PULSE 88; RESP 18; TEMP 36.9; O2SAT 94
--- NOTE | 2020-12-03 07:37 | PM.PN.1 ---
Subjective Subjective Date Patient Seen: 12/03/20 Time Patient Seen: 07:37 Interval history: Patient is postoperative day 3. Status post simple open prostatectomy. He experienced significant nausea yesterday resulting in low p.o. intake. Urine output subsequently declined through the evening shift. With saline bolus and restart of IV last shift output was 310 cc. He has received oxycodone and Zofran in the interval and has not experienced further nausea he is feeling much improved per his report. He states that bladder spasms are becoming less frequent and less intense. Exam Vital Signs (past 8 hours): - 12/03/20 00:00 12/03/20 04:17 Temperature 98.2 F 98.4 F Pulse Rate 81 88 Respiratory Rate 18 18 Blood Pressure 130/74 127/68 Pulse Oximetry 96 94 Oxygen Delivery Method Room Air Oxygen Flow Rate 0 Objective Labs Result Diagrams: 11/30/20 19:33 12/02/20 22:54 Labs: Laboratory Results - last 24 hr 12/02/20 22:54 Sodium 133 L Potassium 4.3 Chloride 100 Carbon Dioxide 29 BUN 25 H Creatinine 1.44 H Estimated GFR 48.1 L BUN/Creatinine Ratio 17.4 Glucose 140 H Calcium 9.0 PFSH Medical History Benign non-nodular prostatic hyperplasia with lower urinary tract symptoms (03/25/15) BPH (benign prostatic hyperplasia) BPH w urinary obs/LUTS Cancer of kidney (~1998) Eczema Elevated PSA Elevated PSA Essential hypertension (06/29/11) H/O adenomatous polyp of colon (~07/2017) History of kidney cancer History of UTI Kidney stones Multinodular goiter Neoplasm of kidney Nephrolithiasis Osteoarthritis Proctitis (~2008) Skin cancer Urinary calculi Urinary retention UTI (urinary tract infection) Surgical History Anesthesia History of nephrectomy (~1998) Status post colonoscopy (~2008) Social History household members: spouse Smoking Status: Former smoker alcohol intake: current Assessment & Plan Assessment & Plan narrative: Assessment: 1. Stable status post simple open prostatectomy 11/30/2020. 2. Postop nausea, uncertain etiology-resolved. 3. Pathology pending. Plan: 1. Increase diet and activity. 2. Continue oral and rectal analgesics. 3. Review of pathology when final. 4. Obtained BMP Quality VTE Deep Vein Thrombosis/Pulmonary Embolism Present on Admission: No
[2020-12-03 07:46] VITALS: BP 130/73; PULSE 82; RESP 16; TEMP 37.1; O2SAT 95
[2020-12-03] MEDS: BISACODYL 10 MG SUPP PR (08:21)
[2020-12-03] MEDS: NITROFURANTOIN ER 100 MG CAPSULE PO (08:21)
[2020-12-03] MEDS: POTASSIUM CHLORIDE 10 MEQ TAB 40 MEQ PO (08:21)
[2020-12-03] MEDS: LOSARTAN 25 MG TABLET PO (08:21)
[2020-12-03] MEDS: SODIUM CHLORIDE 0.9% FLUSH 10 ML IV (08:22)
[2020-12-03 09:10] LABS: Blood Urea Nitrogen 21 mg/dL (9-20); Calcium 9.1 mg/dL (8.4-10.2); Carbon Dioxide 31 mmol/L (22-32); Chloride 101 mmol/L (98-107); Estimated Glomerular Filt Rate > 60.0 mL/min (>60); Glucose 114 mg/dL (80-110); HEMOLYSIS < 15 (0-50); Potassium 4.1 mmol/L (3.4-5.1); Sodium 134 mmol/L (137-145)
--- NOTE | 2020-12-03 09:24 | PC.NURSE ---
Patient given one oxycodone this morning for discomfort to lower abdomen 08/15. into see patient and has written orders to do some leg bag teaching with patient. His johnston catheter continues to leak bloody fluid and urine. Patient is going to heplocked from his ivf. He is a one person assist to ambulate to the bathroom, will give him a suppository soon, to help promote a bowel movement. He is sitting up in chair and has eaten some breakfast. States that he is feeling better today and is in better spirits.
[2020-12-03] MEDS: MAGNESIUM OXIDE 400 MG TABLET 200 MG PO (09:40)
[2020-12-03 12:20] VITALS: BP 105/65; PULSE 54; RESP 14; TEMP 36.7; O2SAT 94
[2020-12-03 15:23] VITALS: BP 121/76; PULSE 100; RESP 18; TEMP 36.8; O2SAT 95
--- NOTE | 2020-12-03 19:11 | PM.DS.1 ---
History of Present Illness History of Present Illness Date Patient Seen: 12/03/20 Time Patient Seen: 19:12 Chief complaint: Simple Open Prostatectomy Narrative: The patient is a 75-year-old white male presenting today for scheduled simple open prostatectomy for urinary retention. He has a several year history of diagnosed BPH and on medical therapy. Despite medical therapy for management of bladder outlet obstruction he has had intermittent difficulties with urinary tract infection and more recently, with urinary retention. He has failed voiding trials and over the last approximately 2 months has been performing clean intermittent catheterization. He is carefully considered available options including continued CIC versus surgical intervention. He has chosen the latter. A lengthy and detailed discussion regarding the common side effects, possible complications, perioperative limitations/restrictions, and reasonable expectations of outcomes and recovery have been undertaken. He wishes to proceed. Discharge Providers Provider Date of admission: 11/30/20 06:27 Discharge Date: 12/03/20 Primary care physician: Eric Jeffries MD Discharge provider: Vaughn Thorne MD Summary Hospital Course Discharge Diagnosis: 1. Urinary retention. 2. BPH/LUTS. Hospital Course: The patient is minute on the morning of 11/30/2020 and underwent uncomplicated simple open prostatectomy under general and Duramorph anesthesia. His his immediate postop requires was remarkable for delay lower urinary tract bleeding while in the PACU. The situation was remedied with sterile saline irrigation, over fill of retention balloon, and application of traction to the left thigh. These measures resulted an clearing of the urine minimal issues with outflow thereafter. He continued to progress generally well over the ensuing 24-36 hours in terms of increased diet, tolerance of ample p.o. fluids, at bili the ambulate without assistance. On the 2nd postoperative day he experienced significant bladder spasms that were remedied with belladonna and opium suppositories. He also had nausea that was of uncertain etiology that was managed well with Zofran and Ativan. He had no emesis. Nausea resolved seemingly on its own following the 2nd postoperative night. He remained hemodynamically stable throughout his inpatient hospitalization. Creatinine and BUN transiently Madelin temporally related to 1 shift suboptimal urine output. With p.o. and IV fluid replacement urine output briskly picked up and BMP parameters improved. On the afternoon of 12/03/2020 the patient was stable for discharge. He was provided prescriptions for oxycodone for pain and Ativan for nausea. He will resume 81 mg aspirin at home. Catheter removal will be arranged as an outpatient approximately 2 weeks. Pathology was pending at discharge. Status at Discharge Cognitive/behavioral status at discharge: oriented Functional status at discharge: independent ambulation Overall status at discharge: patient is back to baseline Exam Vital Signs (past 8 hours): - 12/03/20 12:20 12/03/20 15:23 Temperature 98.0 F 98.3 F Pulse Rate 54 L 100 H Respiratory Rate 14 18 Blood Pressure 105/65 121/76 Pulse Oximetry 94 95 Oxygen Delivery Method Room Air Oxygen Flow Rate 3 Narrative Exam Narrative: Patient is resting comfortably of sitting up in a bedside chair and without complaint. Chest-equal unlabored and clear bilaterally. Abdomen- flat and without distension tenderness or erythema. [place]-indwelling with clear to very light maroon coloration without clot. Objective Labs Result Diagrams: 11/30/20 19:33 12/03/20 08:34 Labs: Laboratory Results - last 24 hr 12/02/20 12/03/20 22:54 08:34 Sodium 133 L 134 L Potassium 4.3 4.1 Chloride 100 101 Carbon Dioxide 29 31 BUN 25 H 21 H Creatinine 1.44 H 1.05 Estimated GFR 48.1 L > 60.0 BUN/Creatinine Ratio 17.4 20.0 Glucose 140 H 114 H Calcium 9.0 9.1 PFSH Medical History Benign non-nodular prostatic hyperplasia with lower urinary tract symptoms (03/25/15) BPH (benign prostatic hyperplasia) BPH w urinary obs/LUTS Cancer of kidney (~1998) Eczema Elevated PSA Elevated PSA Essential hypertension (06/29/11) H/O adenomatous polyp of colon (~07/2017) History of kidney cancer History of UTI Kidney stones Multinodular goiter Neoplasm of kidney Nephrolithiasis Osteoarthritis Proctitis (~2008) Skin cancer Urinary calculi Urinary retention UTI (urinary tract infection) Surgical History Anesthesia History of nephrectomy (~1998) Status post colonoscopy (~2008) Social History household members: spouse Smoking Status: Former smoker alcohol intake: current Discharge Assessment & Plan Assessment and Plan Assessment: 1. Stable postop day 3. Status post simple open prostatectomy. 2. Pathology pending at discharge. Plan of Treatment: 1. Discharge home today. 2. Large and leg bag provider with care and Use instruction. 3. pelvic floor strength exercises-patient information literature provided with verbal review and explanation. 4. Discharge prescriptions explained. Common side effects, precautions, intake instructions reviewed. 5. Pathology pending at discharge. Will follow-up by phone as outpatient when available. Discharge Plan Discharge Plan Patient Disposition: Home Provider Discharge Comment: Contact Urology Discharge orders & Medications Prescriptions: New ciprofloxacin HCl [Cipro] 500 mg tablet 500 mg PO BID Qty: 6 RF: 0 lorazepam 0.5 mg Tablet 0.5 mg PO Q6HR PRN (Reason: Nausea) Qty: 10 RF: 0 belladonna alkaloids-opium 16.2-60 mg Suppository 1 ea CA Q4HR PRN (Reason: Spasms) Qty: 10 RF: 1 oxycodone 5 mg Tablet 5 mg PO Q4H PRN (Reason: Pain, Moderate (4-6)) Qty: 30 RF: 0 Continued potassium chloride 10 mEq tablet extended release 40 meq PO DAILY Qty: 720 RF: 1 magnesium 200 mg tablet 200 mg PO SEEINSTR RF: 0 d-mannose 1,000 mg PO BID RF: 0 aspirin 81 mg tablet,delayed release (DR/EC) 81 mg PO DAILY RF: 0 nitrofurantoin macrocrystal [Macrodantin] 100 mg Capsule 100 mg PO BID RF: 0 losartan 25 mg tablet 25 mg PO BID RF: 0 Discontinued tamsulosin [Flomax] 0.4 mg capsule 0.4 mg PO BEDTIME RF: 0 Follow up/Referrals: Eric Jeffries MD [Primary Care Provider] - Diet/Activity/Treatments Diet: Diet as Tolerated Activity: No lifting greater than 15 lb strenuous activity x6 weeks. Ambulate liberally. Catheter: 2-way [place] Skin/Wound/Dressing Care Skin care: Leave incision open to air. Do not wear tight waist band snap or belt isabel Report to your healthcare provider any signs of infection, such as:: chills, fever, increased pain, unusual drainage and unusual redness Visit Report/Discharge Packet Instructions: DI for Prescription Opioid Use Stand Alone Forms: Surgery Discharge Discharge Data Primary Care Provider: Eric Jeffries Quality VTE Deep Vein Thrombosis/Pulmonary Embolism Present on Admission: No
--- NOTE | 2020-12-03 19:54 | PC.NURSE ---
Shift: A&Ox3. Denies pain except with intermittent bladder spasms; declines pain meds. [place], hematuria; significant leaking around Gamb[place]; Dr. Thorne aware. Pt. wearing pull-up brief with additional maxi pad, has saturated multiple pads and chux pads. Discharge orders obtained after lengthy discussion between Dr. Thorne, patient, patient's spouse and myself. IV's dc'd x2. Surgical dressing removed. Incision approximated, CDI. [place] bag switched to leg bag. Pt. sent with supplies, including [place] securement devices, [place] leg bags, large [place] bags, and a couple of briefs. Rx's to [facility]. Discharge instructions given to pt and spouse. Both verbalize understanding. Pt discharged via wheelchair to home via private vehicle.
== END 2020-12-03 20:10 | disposition home or self-care (01) | DRG 717 ==
LOC: AC 09:34 → ICU 16:38 → AC 12-02 13:26
PROVIDERS: Admitting Provider Specialist; Family Provider Student in an Organized Health Care Education/Training Program; PCP Student in an Organized Health Care Education/Training Program; Referring Provider Specialist; Visit Provider Specialist
PROC: 0VT00ZZ Resection of Prostate, Open Approach (ICD-10-PCS; principal; 2020-11-30 07:45)
DX: N40.1 Benign prostatic hyperplasia with lower urinary tract symptoms (principal); N99.820 Postprocedural hemorrhage of a genitourinary system organ or structure following a genitourinary system procedure; R33.8 Other retention of urine; I10 Essential (primary) hypertension; Z87.891 Personal history of nicotine dependence; Z20.822 Contact with and (suspected) exposure to COVID-19
CPT/HCPCS: 36415; 36592; 55831; 80048; 81001; 82962; 85014; 85018; 85025; 86850; 86900; 86901; 87086; 87635; 87797; C9803; C9290; J0171; J1100; J1170; J2250; J2274; J2405; J2704; J3010; J7050

== ENCOUNTER 2020-12-04 07:55 | Emergency (ER) | payer MEDICARE, OTHER, SELFPAY ==
[2020-11-30 06:36] VITALS: BMI 23.7
--- NOTE | 2020-12-04 08:07 | ED.WEAKNESS ---
HPI - Weakness General Chief complaint: Nausea/Vomiting/Diarrhea Stated complaint: dehydrated Time Seen by Provider: 12/04/20 08:01 History of Present Illness HPI Narrative: 75-year-old male former smoker with a history of BPH and recent prostate surgery, just discharged yesterday, presents with his in the chief complaint of feeling dizzy, weak and lightheaded. He has had trouble eating and drinking, poor appetite and significant nausea and feels very dehydrated. He has had no fever or chills. He does not complain of any pain. He has had small hard stools and is passing gas. Related Data Home Medications Medication Instructions Recorded Confirmed aspirin 81 mg tablet,delayed 81 mg PO DAILY 01/07/19 11/30/20 release d-mannose 1,000 mg PO BID 05/19/20 11/30/20 magnesium 200 mg tablet 200 mg PO SEEINSTR 05/19/20 11/30/20 losartan 25 mg tablet 25 mg PO BID 11/23/20 11/30/20 nitrofurantoin macrocrystal 100 mg 100 mg PO BID 11/23/20 11/30/20 capsule (Macrodantin) Previous Rx's Medication Instructions Recorded potassium chloride 10 mEq 40 meq PO DAILY #720 tab 08/31/20 tablet,extended release belladonna alkaloids-opium 16.2 1 ea IA Q4HR PRN #10 ea 12/03/20 mg-60 mg rectal suppository ciprofloxacin HCl 500 mg tablet 500 mg PO BID #6 tab 12/03/20 (Cipro) lorazepam 0.5 mg tablet 0.5 mg PO Q6HR PRN #10 tab 12/03/20 oxycodone 5 mg tablet 5 mg PO Q4H PRN #30 tab 12/03/20 cyclobenzaprine 10 mg tablet 10 mg PO TID PRN #20 tab 12/04/20 ondansetron 4 mg disintegrating 4 mg PO TID-QID PRN #10 tab 12/04/20 tablet Allergies Allergy/AdvReac Type Severity Reaction Status Date / Time amoxicillin [From Augmentin] AdvReac Severe Gastrointestinal Verified 12/04/20 08:15 Upset clavulanic acid AdvReac Severe Gastrointestinal Verified 12/04/20 08:15 [From Augmentin] Upset lisinopril [LISINOPRIL] AdvReac Mild feel Verified 12/04/20 08:15 strange Review of Systems Review of Systems Narrative: GENERAL: See HPI HEENT: Denies sinus pain, ear pain, sore throat, difficulty swallowing, dizziness. RESPIRATORY: Denies dyspnea, cough, wheezing, hemoptysis, sputum. CARDIOVASCULAR: Denies chest pain, palpitations, orthopnea, edema, GASTROINTESTINAL: Denies nausea, vomiting, abdominal pain, diarrhea, constipation, melena. : Denies dysuria, frequency, incontinence, hematuria, urinary retention. MUSCULOSKELETAL: denies weakness, joint pain, or bony pain SKIN: Denies rash, skin lesions, or other NEUROLOGIC: Denies weakness, headache, numbness, change in speech, confusion, seizures, incoordination. PSYCHIATRIC: No concerning psychosocial issues. 12 point review of systems is negative except for those stated above Patient History Medical History Benign non-nodular prostatic hyperplasia with lower urinary tract symptoms (03/25/15) BPH (benign prostatic hyperplasia) BPH w urinary obs/LUTS Cancer of kidney (~1998) Eczema Elevated PSA Elevated PSA Essential hypertension (06/29/11) H/O adenomatous polyp of colon (~07/2017) History of kidney cancer History of UTI Kidney stones Multinodular goiter Neoplasm of kidney Nephrolithiasis Osteoarthritis Proctitis (~2008) Skin cancer Urinary calculi Urinary retention UTI (urinary tract infection) Surgical History Anesthesia History of nephrectomy (~1998) Status post colonoscopy (~2008) Social History household members: spouse Smoking Status: Former smoker alcohol intake: current Smoking Status: Former smoker alcohol intake frequency: a few times a month Substance Use Type: does not use Exam Narrative Exam Narrative: GENERAL: [75] year old patient appears stated age. Well-developed patient, in mild distress. Appears weak HEAD: Atraumatic. Normocephalic. EYES: Pupils equal round and reactive. Extraocular motions intact. No scleral icterus. No injection or drainage. ENT: Dry mucous membranes Nose without bleeding, purulent drainage. Throat without erythema, tonsillar hypertrophy or exudate. Airway patent. NECK: Trachea midline. Non tender CARDIOVASCULAR: Regular rate and rhythm without murmurs, gallops, or rubs. RESPIRATORY: Clear to auscultation. Breath sounds equal bilaterally. No wheezes, rales, or rhonchi. GASTROINTESTINAL: Abdomen soft, non-tender, nondistended. EXTREMITIES: No edema or joint tenderness. BACK: Nontender without deformity or crepitance. No flank tenderness. NEURO: AOx3. SKIN: Poor skin turgor No rash or erythema of visible areas Initial Vital Signs Initial Vital Signs: Vital Signs Temperature 98.5 F 12/04/20 08:09 Pulse Rate 88 12/04/20 08:09 Respiratory Rate 18 12/04/20 08:09 Blood Pressure 167/82 H 12/04/20 08:09 Pulse Oximetry 98 12/04/20 08:09 Course Orders Ordered: Discontinued Medications Cyclobenzaprine HCl (Cyclobenzaprine 10 Mg Tablet) 10 mg PO NOW ONE Stop: 12/04/20 10:01 Last Admin: 12/04/20 10:12 Dose: 10 mg Documented by: JOSH Lactated Ringer's (Lactated Ringers) 1,000 mls @ 1,000 mls/hr IV BOLUS ONE Stop: 12/04/20 09:04 Last Infusion: 12/04/20 11:36 Dose: 0 mls/hr Documented by: Admin: 12/04/20 08:43 Dose: 1,000 mls/hr Documented by: JOSH Pantoprazole Sodium (Pantoprazole 40 Mg Vial) 40 mg IV NOW ONE Stop: 12/04/20 08:06 Last Admin: 12/04/20 08:44 Dose: 40 mg Documented by: JOSH Vital Signs Vital signs: Vital Signs - 8 hr 12/04/20 08:09 12/04/20 09:58 12/04/20 10:23 Temperature 98.5 F Pulse Rate 88 85 88 Pulse Rate [Orthostatic Lying] Pulse Rate [Orthostatic Sitting] Pulse Rate [Orthostatic Standing] Respiratory Rate 18 18 18 Blood Pressure 167/82 H 149/86 H Blood Pressure [Orthostatic Lying] Blood Pressure [Orthostatic Sitting] Blood Pressure [Orthostatic Standing] Pulse Oximetry 98 98 98 12/04/20 11:33 Temperature Pulse Rate Pulse Rate [Orthostatic Lying] 86 Pulse Rate [Orthostatic Sitting] 91 H Pulse Rate [Orthostatic Standing] 110 H Respiratory Rate Blood Pressure Blood Pressure [Orthostatic Lying] 158/83 H Blood Pressure [Orthostatic Sitting] 173/75 H Blood Pressure [Orthostatic Standing] 190/92 H Pulse Oximetry MDM - Weakness Lab Data Result diagrams: 12/04/20 08:16 12/04/20 08:16 Labs: Lab Results 12/04/20 12/04/20 12/04/20 Range/Units 08:16 08:16 10:00 WBC 9.4 (4.5-11.0) X10^3/uL RBC 3.44 L (4.5-5.9) X10^6/uL Hgb 10.2 L (13.5-17.5) g/dL Hct 30.1 L (41-53) % MCV 87.5 (80-100) fL MCH 29.7 (26-34) PG MCHC 33.9 (30-36) % RDW 14.0 (11.6-14.8) % Plt Count 262 (150-400) X10^3/uL Neut % (Auto) 76.1 H (50-75) % Lymph % (Auto) 6.8 L (25-40) % [place] % (Auto) 14.7 H (3-14) % Eos % (Auto) 2.2 (2-4) % Baso % (Auto) 0.2 (0-2) % Neut # (Auto) 7200 H (5867-5707) /uL Lymph # (Auto) 600 L (4865-5440) /uL [place] # (Auto) 1400 H (0-900) /uL Eos # (Auto) 200 (0-450) /uL Baso # (Auto) 0 (0-100) /uL Sodium 135 L (137-145) mmol/L Potassium 3.8 (3.4-5.1) mmol/L Chloride 102 (98-107) mmol/L Carbon Dioxide 29 (22-32) mmol/L BUN 19 (9-20) mg/dL Creatinine 0.84 (0.66-1.25) mg/dL Estimated GFR > 60.0 (>60) mL/min BUN/Creatinine Ratio 22.6 H (6-22) Glucose 121 H (80-110) mg/dL Calcium 9.6 (8.4-10.2) mg/dL Magnesium 1.6 (1.6-2.3) mg/dL Total Bilirubin 1.3 (0.2-1.3) mg/dL AST 32 (17-59) IU/L ALT 23 (<50) IU/L Alkaline Phosphatase 60 (38-126) U/L Total Protein 5.8 L (6.3-8.2) g/dL Albumin 3.2 L (3.5-5.0) g/dL Globulin 2.6 (1.7-4.1) g/dL Albumin/Globulin Ratio 1.2 (1.0-2.8) Urine RBC 5-10/hpf H (0-5/HPF) Urine WBC 1-5/hpf (0-5/HPF) Urine Bacteria None seen (None) Ur Culture Indicated? Culture not indicate Urine Dip Bedside Urine Glucose Negative Bedside Urine Bilirubin - Negative Bedside Urine Ketone +/- 5 Urine Specific Verbena 1.010 Bedside Urine Occult Blood +++ Bedside Urine pH 8 Bedside Urine Protein ++ 100 Bedside Urine Urobilinogen - Negative Bedside Urine Nitrite - Negative Bedside Urine Leukocytes ++ 125 Esterase MDM Narrative Medical decision making narrative: Better after above-stated therapies. He is tolerating his discomfort without difficulty, vital signs are stable, no orthostatic complaints. Labs are reassuring. Return precautions given and questions answered to his apparent satisfaction Discharge Plan Departure Patient Disposition: Home Clinical Impression: Bladder spasm, Acute dehydration Instructions: DI for Dehydration -- Adult, DI for Nausea -- Adult Activity Restrictions/Additional Instructions: *You have been diagnosed with [dehydration and bladder spasm] *What to do: *Please continue to take your regular medications as directed. [x ] New medication prescriptions sent to your pharmacy: [[facility]] [ ] New medication written as a paper prescription [ ] No new medications given *Please follow up with your primary care provider in 2-3 days, call for an appointment. Let them know you were seen in the Emergency Department and that we ask that you be seen in follow up. We will electronically transmit a record of today's note if your PCP is in our system *If you do not have a primary care provider please contact the [facility] Resource line at [phone]. They will ask some questions about your medical history and help get you set up with a doctor in the community. *Return to Emergency Department if you should have any new, worsening or concerning symptoms, such as [fever greater than 101 F, shaking chills, worsening pain, persistent vomiting or other bothersome symptoms] Prescriptions: New cyclobenzaprine 10 mg tablet 10 mg PO TID PRN (Reason: muscle spasm) Qty: 20 RF: 0 ondansetron 4 mg tablet,disintegrating 4 mg PO TID-QID PRN (Reason: nausea and vomiting) Qty: 10 RF: 0 No Action potassium chloride 10 mEq tablet extended release 40 meq PO DAILY Qty: 720 RF: 1 magnesium 200 mg tablet 200 mg PO SEEINSTR RF: 0 d-mannose 1,000 mg PO BID RF: 0 aspirin 81 mg tablet,delayed release (DR/EC) 81 mg PO DAILY RF: 0 nitrofurantoin macrocrystal [Macrodantin] 100 mg Capsule 100 mg PO BID RF: 0 losartan 25 mg tablet 25 mg PO BID RF: 0 ciprofloxacin HCl [Cipro] 500 mg tablet 500 mg PO BID Qty: 6 RF: 0 lorazepam 0.5 mg Tablet 0.5 mg PO Q6HR PRN (Reason: Nausea) Qty: 10 RF: 0 belladonna alkaloids-opium 16.2-60 mg Suppository 1 ea IA Q4HR PRN (Reason: Spasms) Qty: 10 RF: 1 oxycodone 5 mg Tablet 5 mg PO Q4H PRN (Reason: Pain, Moderate (4-6)) Qty: 30 RF: 0 Referrals: Eric Jeffries MD [Primary Care Provider] -
[2020-12-04 08:09] VITALS: BP 167/82; PULSE 88; RESP 18; TEMP 36.9; O2SAT 98; BMI 23.7
[2020-12-04 08:25] LABS: Add Manual Diff / Slide Review NO; Basophils Absolute Auto 0 /uL (0-100); Basophils Percent Auto 0.2 % (0-2); Eosinophils Absolute Auto 200 /uL (0-450); Eosinophils Percent Auto 2.2 % (2-4); Hematocrit 30.1 % (41-53); Hemoglobin 10.2 g/dL (13.5-17.5); Lymphocytes Absolute Auto 600 /uL (1100-4500); Lymphocytes Percent Auto 6.8 % (25-40); Mean Corpuscular HGB Conc 33.9 % (30-36); Mean Corpuscular Hemoglobin 29.7 PG (26-34); Mean Corpuscular Volume 87.5 fL (80-100); Monocytes Absolute Auto 1400 /uL (0-900); Monocytes Percent Auto 14.7 % (3-14); Neutrophils Absolute Auto 7200 /uL (1500-7000); Neutrophils Percent Auto 76.1 % (50-75); Platelet Count 262 X10^3/uL (150-400); Red Blood Cell Count 3.44 X10^6/uL (4.5-5.9); White Blood Cell Count 9.4 X10^3/uL (4.5-11.0)
[2020-12-04 08:34] LABS: Alanine Aminotransferase 23 IU/L (<50); Albumin 3.2 g/dL (3.5-5.0); Albumin Globulin Ratio 1.2 (1.0-2.8); Alkaline Phosphatase 60 U/L (38-126); Aspartate Aminotransferase 32 IU/L (17-59); BUN Creatinine Ratio 22.6 (6-22); Bilirubin Total 1.3 mg/dL (0.2-1.3); Blood Urea Nitrogen 19 mg/dL (9-20); Calcium 9.6 mg/dL (8.4-10.2); Carbon Dioxide 29 mmol/L (22-32); Chloride 102 mmol/L (98-107); Estimated Glomerular Filt Rate > 60.0 mL/min (>60); Globulin 2.6 g/dL (1.7-4.1); Glucose 121 mg/dL (80-110); HEMOLYSIS < 15 (0-50); Magnesium 1.6 mg/dL (1.6-2.3); Potassium 3.8 mmol/L (3.4-5.1); Sodium 135 mmol/L (137-145); Total Protein 5.8 g/dL (6.3-8.2)
[2020-12-04] MEDS: LACTATED RINGERS 1,000 ML 1000 ML IV (08:43)
[2020-12-04] MEDS: PANTOPRAZOLE 40 MG VIAL IV (08:44)
[2020-12-04 09:58] VITALS: PULSE 85; RESP 18; O2SAT 98
[2020-12-04 10:04] VITALS: PULSE 80; RESP 14; O2SAT 95
[2020-12-04] MEDS: CYCLOBENZAPRINE 10 MG TABLET PO (10:12)
[2020-12-04 10:17] LABS: Bacteria Urine None Seen
[2020-12-04 10:23] VITALS: BP 149/86; PULSE 88; RESP 18; O2SAT 98
[2020-12-04 10:35] LABS: RBC Urine 5-10/HPF (0-5/HPF); WBC Urine 1-5/HPF (0-5/HPF)
[2020-12-04 11:33] VITALS: BP 158/83; BP 173/75; BP 190/92; PULSE 110; PULSE 86; PULSE 91
== END 2020-12-04 12:15 | disposition home or self-care (01) ==
PROVIDERS: Emergency Provider Emergency Medicine; Family Provider Student in an Organized Health Care Education/Training Program; PCP Student in an Organized Health Care Education/Training Program
DX: N32.89 Other specified disorders of bladder (principal); E86.0 Dehydration; R11.0 Nausea
CPT/HCPCS: 36415; 80053; 81003; 81015; 83735; 85025; 87086; 96361; 96374; 99284; C9113

== ENCOUNTER → 2021-01-05 10:08 | Outpatient (CLI) | payer MEDICARE, OTHER, SELFPAY ==
[2020-12-08 15:26] VITALS: BMI 23.7
[2021-01-05 12:56] LABS: Appearance Urine UA SL CLOUDY; Bilirubin Urine UA NEGATIVE (NEGATIVE); Color Urine UA YELLOW; Glucose Urine UA NEGATIVE (Negative); Ketones Urine UA NEGATIVE (NEGATIVE); Leukocyte Esterase Urine UA 3+ (NEGATIVE); Nitrite Urine UA NEGATIVE (Negative); Occult Blood Urine UA 2+ (Negative); Protein Urine UA NEGATIVE (Negative); Specific Gravity Urine UA <=1.005 (1.000-1.035); Urobilinogen Urine UA 0.2 E.U./dL (0.2); pH Urine UA 6.5 (4.5-8.0)
[2021-01-05 13:31] LABS: Bacteria Urine Moderate (10-30); Culture Indicated Urine Specimen Cultured; RBC Urine 5-10/HPF (0-5/HPF); WBC Urine >100/HPF (0-5/HPF)
== END ==
PROVIDERS: Family Provider Student in an Organized Health Care Education/Training Program; PCP Student in an Organized Health Care Education/Training Program; Referring Provider Specialist; Visit Provider Specialist
DX: N30.01 Acute cystitis with hematuria (principal); Z87.440 Personal history of urinary (tract) infections
CPT/HCPCS: 81001; 87077; 87086; 87186

== ENCOUNTER → 2021-01-13 08:27 | Outpatient (CLI) | payer MEDICARE, OTHER, SELFPAY ==
[2020-12-08 15:26] VITALS: BMI 23.7
== END ==
PROVIDERS: Family Provider Student in an Organized Health Care Education/Training Program; PCP Student in an Organized Health Care Education/Training Program; Referring Provider Specialist; Visit Provider Specialist
DX: R97.20 Elevated prostate specific antigen [PSA] (principal); N40.1 Benign prostatic hyperplasia with lower urinary tract symptoms; N13.8 Other obstructive and reflux uropathy
CPT/HCPCS: 36415; 84153

== ENCOUNTER → 2021-02-08 10:53 | Outpatient (CLI) | payer MEDICARE, OTHER, SELFPAY ==
[2020-12-08 15:26] VITALS: BMI 23.7
[2021-02-08 11:16] LABS: Appearance Urine UA CLOUDY; Bilirubin Urine UA NEGATIVE (NEGATIVE); Color Urine UA YELLOW; Glucose Urine UA NEGATIVE (Negative); Ketones Urine UA NEGATIVE (NEGATIVE); Leukocyte Esterase Urine UA 2+ (NEGATIVE); Nitrite Urine UA POSITIVE (Negative); Occult Blood Urine UA 3+ (Negative); Protein Urine UA 2+ (Negative); Specific Gravity Urine UA 1.025 (1.000-1.035); Urobilinogen Urine UA 0.2 E.U./dL (0.2); pH Urine UA 5.5 (4.5-8.0)
[2021-02-08 11:50] LABS: RBC Urine 10-30/HPF (0-5/HPF)
[2021-02-08 11:51] LABS: Bacteria Urine Many (>30); Culture Indicated Urine Specimen Cultured; Squamous Epithelial Cell Urine 1-5 /HPF (0-5/HPF); WBC Urine >100/HPF (0-5/HPF)
== END ==
PROVIDERS: Family Provider Student in an Organized Health Care Education/Training Program; PCP Student in an Organized Health Care Education/Training Program; Visit Provider Specialist
DX: N30.01 Acute cystitis with hematuria (principal)
CPT/HCPCS: 81001; 87077; 87086; 87186

== ENCOUNTER → 2021-03-05 07:14 | Outpatient (CLI) | payer MEDICARE, OTHER, SELFPAY ==
[2020-12-08 15:26] VITALS: BMI 23.7
[2021-03-05 08:30] LABS: Appearance Urine UA CLEAR; Bilirubin Urine UA NEGATIVE (NEGATIVE); Color Urine UA YELLOW; Glucose Urine UA NEGATIVE (Negative); Ketones Urine UA NEGATIVE (NEGATIVE); Leukocyte Esterase Urine UA 2+ (NEGATIVE); Nitrite Urine UA NEGATIVE (Negative); Occult Blood Urine UA NEGATIVE (Negative); Protein Urine UA NEGATIVE (Negative); Urobilinogen Urine UA 0.2 E.U./dL (0.2)
[2021-03-05 08:36] LABS: Bacteria Urine Moderate (10-30); Culture Indicated Urine Specimen Cultured; RBC Urine None Seen (0-5/HPF); Squamous Epithelial Cell Urine 0-1 /HPF (0-5/HPF); WBC Urine 10-30/HPF (0-5/HPF)
== END ==
PROVIDERS: Family Provider Student in an Organized Health Care Education/Training Program; PCP Student in an Organized Health Care Education/Training Program; Referring Provider Specialist; Visit Provider Specialist
DX: R30.0 Dysuria (principal)
CPT/HCPCS: 81001; 87077; 87086; 87186

== ENCOUNTER 2021-03-15 09:45 | Outpatient (RCR) | payer MEDICARE, OTHER, SELFPAY ==
[2020-12-08 15:26] VITALS: BMI 23.7
--- NOTE | 2021-02-01 13:04 | PT.OIE ---
Current Diagnoses Unspecified urinary incontinence (02/01/21) Past Medical History (Last Updated 01/27/21 @ 11:53 by Vaughn Thorne MD) Benign non-nodular prostatic hyperplasia with lower urinary tract symptoms (03/25/15) BPH (benign prostatic hyperplasia) BPH w urinary obs/LUTS Cancer of kidney (~1998) Eczema Elevated PSA Elevated PSA Essential hypertension (06/29/11) H/O adenomatous polyp of colon (~07/2017) History of kidney cancer History of UTI Kidney stones Multinodular goiter Neoplasm of kidney Nephrolithiasis Osteoarthritis Postop check Proctitis (~2008) Skin cancer Urinary calculi Urinary retention UTI (urinary tract infection) Past Surgical History (Last Reviewed 01/27/21 @ 11:52 by Vaughn Thonre MD) Anesthesia History of nephrectomy (~1998) Status post colonoscopy (~2008) Visit Care Team Role Provider Type Eric Jeffries MD Family Provider Physician Primary Care Provider Specialty: Internal Medicine Address: [address] [place] [address], [address], [facility] Email: [email or web address] Vaughn Thorne MD Attending Provider Physician Referring Provider Specialty: Urology Address: [address] [place] [address], [address] Email: Physical Therapy Initial Evaluation PT-OP-A Visit Information Start: 02/01/21 07:57 Freq: Status: Active Protocol: Document 02/01/21 09:45 AMB (Rec: 02/01/21 10:00 AMB [id number]) Out-Patient Physical Therapy Visit Information Visit Information Visit Type Initial Evaluation Visit Start Time 09:45 Visit Stop Time 10:30 Total Visit Minutes 45 Visit Number 1 PT-OP-B Current Condition Start: 02/01/21 07:57 Freq: Status: Active Protocol: Document 02/01/21 09:30 AMB (Rec: 02/01/21 09:59 AMB [id number]) Current Condition History of Current Condition Onset Date December 01 Current Complaints SARAH History of Current Condition Frequent UTIs led pt to have open prostatectomy, has been having incontinence since then , about the same. Feels like kegels increase the leaking briefly. Leaks when moving from sit to stand. Feels like when doing a kegel at the beginning a little urine leaks out and then can stop it and go to the bathroom. Treatment Goals Patient/Caregiver Goals stop leaking Personal Factors Other Personal Factors That May Effect Hx recurrent UTI Therapy/Recovery PT-OP-C Subjective Start: 02/01/21 07:57 Freq: Status: Active Protocol: Document 02/01/21 09:45 AMB (Rec: 02/01/21 13:04 AMB [id number]) Patient Questionnaires Pelvic Pain and Urgency/Frequency Patient Symptom Scale Pelvic Pain Score 1 PT-OP-I Pelvic Floor Start: 02/01/21 07:57 Freq: Status: Active Protocol: Document 02/01/21 09:45 AMB (Rec: 02/01/21 10:17 AMB [id number]) Pelvic Floor Assessment Urine Pelvic Floor Surgery Yes: open prostatectomy November 2020 Leakage Cause Cough,Exercise,Lifting,Sneeze Other Leakage Causes sit to stand Leaks Per Day constant Nocturia 1 Urine Pad Type Depends SEMG (uV) Baseline 0.6 Quick Contraction 40 10 Second Contraction 22 Recruitment Pattern Good Relaxation Good Holding Good Stability of Hold Good SEMG Stability of Rest Good Contraction Ability Muscle Endurance (Seconds) 10 Number of Quick Contractions In 10 5 Seconds Comments Pelvic Floor Comments Tends to use abs and glutes, cued for breath,otherwise feels strong PT-OP-T Assessment and Plan Start: 02/01/21 07:57 Freq: Status: Active Protocol: Document 02/01/21 09:45 AMB (Rec: 02/01/21 11:02 AMB [email or web address]) Physical Therapy Assessment Rehab Potential Rehabilitation Potential Good Evaluation Complexity Number of Personal Factors/Comorbidities 1-2 Number of Body Systems Impaired 1-2 Clinical Presentation at Evaluation Stable Impairments Impairments Strength Goals Two Impairment Incontinence Short Term Goal (STG) Sung will perform a kegel without leaking. STG Duration 4 weeks Lithographers Printer Goal (LTG) Sung will move from sit to stand without leaking. LTG Duration 8 weeks One Impairment Pelvic floor strength Short Term Goal (STG) Sung will improve his pelvic floor strength so that he can perform a kegel without compensating with his abdominals or gluteals. STG Duration 4 weeks Longterm Goal (LTG) Sung will improve his pelvic floor strength so that he can contract it for 10 seconds while in standing without compensations. LTG Duration 8 weeks Assessment Summary Assessment Sung attends physical therapy with SARAH s/p open prostatectomy. With manual assessment of his strength and sEMG his strength and endurance of the pelvic floor musculature appeared WNL, however did discuss in depth to lift vs bear down with kegels and how to isolate pelvic floor from gluteals and abdominals. Sung will benefit from further instruction in appropriate strengthening of his pelvic floor to compensate for the incontinence he has experienced since his surgery. Physical Therapy Plan Frequency and Duration Frequency of Treatment 1x/Week Duration of Treatment 8 weeks Plan of Care Start Date 02/01/21 Plan of Care End Date 03/29/21 Therapeutic Interventions Therapeutic Interventions Home Exercise Program,Manual Therapy,Neuromuscular Re- education,Self-Care/Home Management,Therapeutic Activities,Therapeutic Exercises Modalities Biofeedback,Electric Stimulation Next Visit Focus/Plan Next Note Type Treatment Note Next Visit Plan continue with sEMG as needed, progress into standing exercises, roll in roll out
--- NOTE | 2021-02-01 13:04 | PT.OPPOC ---
Physical, Occupational & Speech Therapy At [facility] Current Diagnoses Unspecified urinary incontinence (02/01/21) Visit Care Team Role Provider Type Eric Jeffries MD Family Provider Physician Primary Care Provider Specialty: Internal Medicine Address: [facility] [place] [address], [address], [place], [address] Email: [email or web address] Vaughn Thorne MD Attending Provider Physician Referring Provider Specialty: Urology Address: [address] [place] [address], [address] Email: Plan Of Care PT-OP-T Assessment and Plan Start: 02/01/21 07:57 Freq: Status: Active Protocol: Document 02/01/21 09:45 AMB (Rec: 02/01/21 11:02 AMB [email or web address]) Physical Therapy Assessment Rehab Potential Rehabilitation Potential Good Evaluation Complexity Number of Personal Factors/Comorbidities 1-2 Number of Body Systems Impaired 1-2 Clinical Presentation at Evaluation Stable Impairments Impairments Strength Goals Two Impairment Incontinence Short Term Goal (STG) Sung will perform a kegel without leaking. STG Duration 4 weeks Senior Care Goal (LTG) Sung will move from sit to stand without leaking. LTG Duration 8 weeks One Impairment Pelvic floor strength Short Term Goal (STG) Sung will improve his pelvic floor strength so that he can perform a kegel without compensating with his abdominals or gluteals. STG Duration 4 weeks Transliterator Goal (LTG) Sung will improve his pelvic floor strength so that he can contract it for 10 seconds while in standing without compensations. LTG Duration 8 weeks Assessment Summary Assessment Sung attends physical therapy with SARAH s/p open prostatectomy. With manual assessment of his strength and sEMG his strength and endurance of the pelvic floor musculature appeared WNL, however did discuss in depth to lift vs bear down with kegels and how to isolate pelvic floor from gluteals and abdominals. Sung will benefit from further instruction in appropriate strengthening of his pelvic floor to compensate for the incontinence he has experienced since his surgery. Physical Therapy Plan Frequency and Duration Frequency of Treatment 1x/Week Duration of Treatment 8 weeks Plan of Care Start Date 02/01/21 Plan of Care End Date 03/29/21 Therapeutic Interventions Therapeutic Interventions Home Exercise Program,Manual Therapy,Neuromuscular Re- education,Self-Care/Home Management,Therapeutic Activities,Therapeutic Exercises Modalities Biofeedback,Electric Stimulation Next Visit Focus/Plan Next Note Type Treatment Note Next Visit Plan continue with sEMG as needed, progress into standing exercises, roll in roll out Plan of Care Dates Plan of Care Start Date 02/01/21 Plan of Care End Date 03/29/21 Electronically Signed by: Sophia Galindo, PT 02/01/21 0016 Please Sign and Return: I have reviewed this Plan of Care and certify that the skilled therapy services above are required to meet the patient?s needs. Physician Signature Date Printed Name and Credentials Clinical Instructor Signature Printed Name and Credentials
--- NOTE | 2021-02-08 15:01 | PT.OTN ---
Current Diagnoses Unspecified urinary incontinence (02/08/21) Physical Therapy Treatment Note PT-OP-A Visit Information Start: 02/01/21 07:57 Freq: Status: Active Protocol: Document 02/08/21 09:45 AMB (Rec: 02/08/21 10:28 AMB [id number]) Out-Patient Physical Therapy Visit Information Visit Information Visit Type Treatment Note Visit Start Time 09:45 Visit Stop Time 10:30 Total Visit Minutes 45 Visit Number 2 PT-OP-B Current Condition Start: 02/01/21 07:57 Freq: Status: Active Protocol: Document 02/01/21 09:30 AMB (Rec: 02/01/21 09:59 AMB [id number]) Current Condition History of Current Condition Onset Date December 01 Current Complaints SARAH History of Current Condition Frequent UTIs led pt to have open prostatectomy, has been having incontinence since then , about the same. Feels like kegels increase the leaking briefly. Leaks when moving from sit to stand. Feels like when doing a kegel at the beginning a little urine leaks out and then can stop it and go to the bathroom. Treatment Goals Patient/Caregiver Goals stop leaking Personal Factors Other Personal Factors That May Effect Hx recurrent UTI Therapy/Recovery PT-OP-C Subjective Start: 02/01/21 07:57 Freq: Status: Active Protocol: Document 02/08/21 09:45 AMB (Rec: 02/08/21 10:28 AMB [id number]) OP-PT Subjective Patient Comments Patient Comments Pt is concerned that he has a bladder infection. PT-OP-I Pelvic Floor Start: 02/01/21 07:57 Freq: Status: Active Protocol: Document 02/01/21 09:45 AMB (Rec: 02/01/21 10:17 AMB [id number]) Pelvic Floor Assessment Urine Pelvic Floor Surgery Yes: open prostatectomy November 2020 Leakage Cause Cough,Exercise,Lifting,Sneeze Other Leakage Causes sit to stand Leaks Per Day constant Nocturia 1 Urine Pad Type Depends SEMG (uV) Baseline 0.6 Quick Contraction 40 10 Second Contraction 22 Recruitment Pattern Good Relaxation Good Holding Good Stability of Hold Good SEMG Stability of Rest Good Contraction Ability Muscle Endurance (Seconds) 10 Number of Quick Contractions In 10 5 Seconds Comments Pelvic Floor Comments Tends to use abs and glutes, cued for breath,otherwise feels strong PT-OP-Q Treatments Start: 02/01/21 07:57 Freq: Status: Active Protocol: Document 02/08/21 09:45 AMB (Rec: 02/08/21 10:28 AMB [id number]) Therapeutic Exercises Sitting Exercises 1 Sitting Exercise Name roll in roll out exercises Reps/Minutes 10 Comments level 2 TB Standing Exercises 2 Standing Exercise Name WBOS- mini squat 1 Standing Exercise Name WBOS- gradual contraction PT-OP-T Assessment and Plan Start: 02/01/21 07:57 Freq: Status: Active Protocol: Document 02/08/21 09:45 AMB (Rec: 02/08/21 10:28 AMB [id number]) Physical Therapy Assessment Goals Two Impairment Incontinence Short Term Goal (STG) Sung will perform a kegel without leaking. STG Duration 4 weeks Group Home Goal (LTG) Sung will move from sit to stand without leaking. LTG Duration 8 weeks One Impairment Pelvic floor strength Short Term Goal (STG) Sung will improve his pelvic floor strength so that he can perform a kegel without compensating with his abdominals or gluteals. STG Duration 4 weeks Group Home Goal (LTG) Sung will improve his pelvic floor strength so that he can contract it for 10 seconds while in standing without compensations. LTG Duration 8 weeks Assessment Summary Assessment Sung feels like sx are about the same, but might be dealing with another bladder infection. Encouraged in progression of exercise. Physical Therapy Plan Next Visit Focus/Plan Next Note Type Treatment Note Next Visit Plan continue with sEMG as needed, progress into standing exercises, roll in roll out
--- NOTE | 2021-02-16 15:40 | PT.OTN ---
Current Diagnoses Unspecified urinary incontinence (02/15/21) Physical Therapy Treatment Note PT-OP-A Visit Information Start: 02/01/21 07:57 Freq: Status: Active Protocol: Document 02/15/21 11:15 AMB (Rec: 02/15/21 11:52 AMB [id number]) Out-Patient Physical Therapy Visit Information Visit Information Visit Type Treatment Note Visit Start Time 11:15 Visit Stop Time 12:00 Total Visit Minutes 45 Visit Number 3 PT-OP-B Current Condition Start: 02/01/21 07:57 Freq: Status: Active Protocol: Document 02/01/21 09:30 AMB (Rec: 02/01/21 09:59 AMB [id number]) Current Condition History of Current Condition Onset Date December 01 Current Complaints SARAH History of Current Condition Frequent UTIs led pt to have open prostatectomy, has been having incontinence since then , about the same. Feels like kegels increase the leaking briefly. Leaks when moving from sit to stand. Feels like when doing a kegel at the beginning a little urine leaks out and then can stop it and go to the bathroom. Treatment Goals Patient/Caregiver Goals stop leaking Personal Factors Other Personal Factors That May Effect Hx recurrent UTI Therapy/Recovery PT-OP-C Subjective Start: 02/01/21 07:57 Freq: Status: Active Protocol: Document 02/15/21 11:15 AMB (Rec: 02/16/21 15:40 AMB [id number]) OP-PT Subjective Patient Comments Patient Comments Pt did have bladder infection, is hoping to chart picker antibiotics today. Does feel like he's getting stronger but continues to note continual leaking. PT-OP-I Pelvic Floor Start: 02/01/21 07:57 Freq: Status: Active Protocol: Document 02/01/21 09:45 AMB (Rec: 02/01/21 10:17 AMB [id number]) Pelvic Floor Assessment Urine Pelvic Floor Surgery Yes: open prostatectomy November 2020 Leakage Cause Cough,Exercise,Lifting,Sneeze Other Leakage Causes sit to stand Leaks Per Day constant Nocturia 1 Urine Pad Type Depends SEMG (uV) Baseline 0.6 Quick Contraction 40 10 Second Contraction 22 Recruitment Pattern Good Relaxation Good Holding Good Stability of Hold Good SEMG Stability of Rest Good Contraction Ability Muscle Endurance (Seconds) 10 Number of Quick Contractions In 10 5 Seconds Comments Pelvic Floor Comments Tends to use abs and glutes, cued for breath,otherwise feels strong PT-OP-Q Treatments Start: 02/01/21 07:57 Freq: Status: Active Protocol: Document 02/15/21 11:15 AMB (Rec: 02/16/21 15:40 AMB [email or web address]) Therapeutic Exercises Supine Exercises 2 Supine Exercise Name double leg tap down Reps/Minutes 10 1 Supine Exercise Name SLR Reps/Minutes 2x10 Sitting Exercises 1 Sitting Exercise Name roll in roll out exercises Reps/Minutes 10 Comments level 2 TB Standing Exercises lunges Standing Exercise Name forward Reps/Minutes 10 2 Standing Exercise Name WBOS- mini squat 1 Standing Exercise Name WBOS- gradual contraction PT-OP-T Assessment and Plan Start: 02/01/21 07:57 Freq: Status: Active Protocol: Document 02/15/21 11:15 AMB (Rec: 02/16/21 15:40 AMB [email or web address]) Physical Therapy Assessment Goals Two Impairment Incontinence Short Term Goal (STG) Sung will perform a kegel without leaking. STG Duration 4 weeks Finance Professor Goal (LTG) Sung will move from sit to stand without leaking. LTG Duration 8 weeks One Impairment Pelvic floor strength Short Term Goal (STG) Sung will improve his pelvic floor strength so that he can perform a kegel without compensating with his abdominals or gluteals. STG Duration 4 weeks Group Home Goal (LTG) Sung will improve his pelvic floor strength so that he can contract it for 10 seconds while in standing without compensations. LTG Duration 8 weeks Assessment Summary Assessment Gave Sung SLR with TA and PF and standing lunges as HEP. Pt will need continued work on his form, but feels like his PF is getting stronger. Physical Therapy Plan Next Visit Focus/Plan Next Note Type Treatment Note Next Visit Plan continue with sEMG as needed, progress into standing exercises, roll in roll out
--- NOTE | 2021-03-01 11:45 | PT.OTN ---
Current Diagnoses Unspecified urinary incontinence (03/01/21) Physical Therapy Treatment Note PT-OP-A Visit Information Start: 02/01/21 07:57 Freq: Status: Active Protocol: Document 03/01/21 09:45 AMB (Rec: 03/01/21 10:21 AMB [id number]) Out-Patient Physical Therapy Visit Information Visit Information Visit Type Treatment Note Visit Start Time 09:45 Visit Stop Time 10:30 Total Visit Minutes 45 Visit Number 4 PT-OP-B Current Condition Start: 02/01/21 07:57 Freq: Status: Active Protocol: Document 02/01/21 09:30 AMB (Rec: 02/01/21 09:59 AMB [id number]) Current Condition History of Current Condition Onset Date December 01 Current Complaints SARAH History of Current Condition Frequent UTIs led pt to have open prostatectomy, has been having incontinence since then , about the same. Feels like kegels increase the leaking briefly. Leaks when moving from sit to stand. Feels like when doing a kegel at the beginning a little urine leaks out and then can stop it and go to the bathroom. Treatment Goals Patient/Caregiver Goals stop leaking Personal Factors Other Personal Factors That May Effect Hx recurrent UTI Therapy/Recovery PT-OP-C Subjective Start: 02/01/21 07:57 Freq: Status: Active Protocol: Document 03/01/21 09:45 AMB (Rec: 03/01/21 10:21 AMB [id number]) OP-PT Subjective Patient Comments Patient Comments Sung feels like his strength is improving but his continence is not. PT-OP-I Pelvic Floor Start: 02/01/21 07:57 Freq: Status: Active Protocol: Document 02/01/21 09:45 AMB (Rec: 02/01/21 10:17 AMB [id number]) Pelvic Floor Assessment Urine Pelvic Floor Surgery Yes: open prostatectomy November 2020 Leakage Cause Cough,Exercise,Lifting,Sneeze Other Leakage Causes sit to stand Leaks Per Day constant Nocturia 1 Urine Pad Type Depends SEMG (uV) Baseline 0.6 Quick Contraction 40 10 Second Contraction 22 Recruitment Pattern Good Relaxation Good Holding Good Stability of Hold Good SEMG Stability of Rest Good Contraction Ability Muscle Endurance (Seconds) 10 Number of Quick Contractions In 10 5 Seconds Comments Pelvic Floor Comments Tends to use abs and glutes, cued for breath,otherwise feels strong PT-OP-Q Treatments Start: 02/01/21 07:57 Freq: Status: Active Protocol: Document 03/01/21 11:44 AMB (Rec: 03/01/21 11:45 AMB [id number]) Therapeutic Exercises Sidelying Exercises 1 Sidelying Exercise Name NMES with 10 second holds Reps/Minutes 40 PT-OP-T Assessment and Plan Start: 02/01/21 07:57 Freq: Status: Active Protocol: Document 03/01/21 09:45 AMB (Rec: 03/01/21 10:21 AMB [id number]) Physical Therapy Assessment Assessment Summary Assessment Sung will consider renting NMES unit. He will continue with his HEP. He is unsure if he is improving with PT at this time. He unsure how many pads he goes through in a day and did discuss that this would be a way to find if his sx are improving. Physical Therapy Plan Next Visit Focus/Plan Next Note Type Treatment Note Next Visit Plan continue with sEMG as needed, progress into standing exercises, roll in roll out
--- NOTE | 2021-03-08 11:17 | PT.OTN ---
Current Diagnoses Unspecified urinary incontinence (03/08/21) Physical Therapy Treatment Note PT-OP-A Visit Information Start: 02/01/21 07:57 Freq: Status: Active Protocol: Document 03/08/21 09:45 AMB (Rec: 03/08/21 10:46 AMB [id number]) Out-Patient Physical Therapy Visit Information Visit Information Visit Type Treatment Note Visit Start Time 09:45 Visit Stop Time 10:30 Total Visit Minutes 45 Visit Number 5 PT-OP-B Current Condition Start: 02/01/21 07:57 Freq: Status: Active Protocol: Document 02/01/21 09:30 AMB (Rec: 02/01/21 09:59 AMB [id number]) Current Condition History of Current Condition Onset Date December 01 Current Complaints SARAH History of Current Condition Frequent UTIs led pt to have open prostatectomy, has been having incontinence since then , about the same. Feels like kegels increase the leaking briefly. Leaks when moving from sit to stand. Feels like when doing a kegel at the beginning a little urine leaks out and then can stop it and go to the bathroom. Treatment Goals Patient/Caregiver Goals stop leaking Personal Factors Other Personal Factors That May Effect Hx recurrent UTI Therapy/Recovery PT-OP-C Subjective Start: 02/01/21 07:57 Freq: Status: Active Protocol: Document 03/08/21 09:45 AMB (Rec: 03/08/21 10:46 AMB [id number]) OP-PT Subjective Patient Comments Patient Comments Sung is noticing improvement in sx. PT-OP-I Pelvic Floor Start: 02/01/21 07:57 Freq: Status: Active Protocol: Document 02/01/21 09:45 AMB (Rec: 02/01/21 10:17 AMB [id number]) Pelvic Floor Assessment Urine Pelvic Floor Surgery Yes: open prostatectomy November 2020 Leakage Cause Cough,Exercise,Lifting,Sneeze Other Leakage Causes sit to stand Leaks Per Day constant Nocturia 1 Urine Pad Type Depends SEMG (uV) Baseline 0.6 Quick Contraction 40 10 Second Contraction 22 Recruitment Pattern Good Relaxation Good Holding Good Stability of Hold Good SEMG Stability of Rest Good Contraction Ability Muscle Endurance (Seconds) 10 Number of Quick Contractions In 10 5 Seconds Comments Pelvic Floor Comments Tends to use abs and glutes, cued for breath,otherwise feels strong PT-OP-Q Treatments Start: 02/01/21 07:57 Freq: Status: Active Protocol: Document 03/08/21 09:45 AMB (Rec: 03/08/21 11:14 AMB [email or web address]) Therapeutic Exercises Supine Exercises 2 Supine Exercise Name double leg tap down Reps/Minutes 10 1 Supine Exercise Name SLR Reps/Minutes 2x10 Standing Exercises 2 Standing Exercise Name WBOS- mini squat 1 Standing Exercise Name WBOS- gradual contraction PT-OP-T Assessment and Plan Start: 02/01/21 07:57 Freq: Status: Active Protocol: Document 03/08/21 09:45 AMB (Rec: 03/08/21 10:46 AMB [id number]) Physical Therapy Assessment Goals Two Impairment Incontinence Short Term Goal (STG) Sung will perform a kegel without leaking. STG Duration 4 weeks Custodial Services Manager Goal (LTG) Sung will move from sit to stand without leaking. LTG Duration 8 weeks One Impairment Pelvic floor strength Short Term Goal (STG) Sung will improve his pelvic floor strength so that he can perform a kegel without compensating with his abdominals or gluteals. STG Duration 4 weeks Prison Goal (LTG) Sung will improve his pelvic floor strength so that he can contract it for 10 seconds while in standing without compensations. LTG Duration MET Assessment Summary Assessment Sung is progressing with all of his goals. He is mostly dry at night now. He does notice leaking with a kegel if his bladder is full, but otherwise can contract his pelvic floor and relax it without leaking. He has noticed that he is using fewer briefs. Physical Therapy Plan Next Visit Focus/Plan Next Note Type Discharge Summary Next Visit Plan Likely d/c if pt independent with HEP and sx continue to decrease
--- NOTE | 2021-03-15 10:21 | PT.OTN ---
Current Diagnoses Unspecified urinary incontinence (03/15/21) Physical Therapy Treatment Note PT-OP-A Visit Information Start: 02/01/21 07:57 Freq: Status: Active Protocol: Document 03/15/21 09:45 AMB (Rec: 03/15/21 10:18 AMB [id number]) Out-Patient Physical Therapy Visit Information Visit Information Visit Type Discharge Summary Visit Start Time 09:45 Visit Stop Time 10:15 Total Visit Minutes 30 Visit Number 6 PT-OP-B Current Condition Start: 02/01/21 07:57 Freq: Status: Active Protocol: Document 02/01/21 09:30 AMB (Rec: 02/01/21 09:59 AMB [id number]) Current Condition History of Current Condition Onset Date December 01 Current Complaints SARAH History of Current Condition Frequent UTIs led pt to have open prostatectomy, has been having incontinence since then , about the same. Feels like kegels increase the leaking briefly. Leaks when moving from sit to stand. Feels like when doing a kegel at the beginning a little urine leaks out and then can stop it and go to the bathroom. Treatment Goals Patient/Caregiver Goals stop leaking Personal Factors Other Personal Factors That May Effect Hx recurrent UTI Therapy/Recovery PT-OP-C Subjective Start: 02/01/21 07:57 Freq: Status: Active Protocol: Document 03/15/21 09:45 AMB (Rec: 03/15/21 10:18 AMB [id number]) OP-PT Subjective Patient Comments Patient Comments Getting better slowly. Way better than when I started, the briefs don't get nearly as wet and they last a lot longer. PT-OP-I Pelvic Floor Start: 02/01/21 07:57 Freq: Status: Active Protocol: Document 02/01/21 09:45 AMB (Rec: 02/01/21 10:17 AMB [id number]) Pelvic Floor Assessment Urine Pelvic Floor Surgery Yes: open prostatectomy November 2020 Leakage Cause Cough,Exercise,Lifting,Sneeze Other Leakage Causes sit to stand Leaks Per Day constant Nocturia 1 Urine Pad Type Depends SEMG (uV) Baseline 0.6 Quick Contraction 40 10 Second Contraction 22 Recruitment Pattern Good Relaxation Good Holding Good Stability of Hold Good SEMG Stability of Rest Good Contraction Ability Muscle Endurance (Seconds) 10 Number of Quick Contractions In 10 5 Seconds Comments Pelvic Floor Comments Tends to use abs and glutes, cued for breath,otherwise feels strong PT-OP-Q Treatments Start: 02/01/21 07:57 Freq: Status: Active Protocol: Document 03/15/21 09:45 AMB (Rec: 03/15/21 10:18 AMB [id number]) Therapeutic Exercises Sitting Exercises 1 Sitting Exercise Name long holds quick flicks Standing Exercises 2 Standing Exercise Name WBOS- mini squat 1 Standing Exercise Name WBOS- gradual contraction PT-OP-T Assessment and Plan Start: 02/01/21 07:57 Freq: Status: Active Protocol: Document 03/15/21 09:45 AMB (Rec: 03/15/21 10:18 AMB [id number]) Physical Therapy Assessment Goals Two Impairment Incontinence Short Term Goal (STG) Sung will perform a kegel without leaking. STG Duration Depends on how full the bladder is Skilled Nursing Goal (LTG) Sung will move from sit to stand without leaking. LTG Duration Depends on how full the bladder is One Impairment Pelvic floor strength Short Term Goal (STG) Sung will improve his pelvic floor strength so that he can perform a kegel without compensating with his abdominals or gluteals. STG Duration MET [employer] Goal (LTG) Sung will improve his pelvic floor strength so that he can contract it for 10 seconds while in standing without compensations. LTG Duration MET Assessment Summary Assessment Sung is using about 2pads/day. Fewer leaks at night, but still noticing some leaks, getting up at night. Reports decreased volume of leaks.Feeling ready for discharge, will continue with HEP. Physical Therapy Plan Discharge Physical Therapy Discharge Comments Pt is doing morning and evening exercises
--- NOTE | 2021-03-15 12:57 | PT.OPDS ---
Current Diagnoses Unspecified urinary incontinence (03/15/21) Visit Care Team Role Provider Type Eric Jeffries MD Family Provider Physician Primary Care Provider Specialty: Internal Medicine Address: [address] [place] [address], [address], [place], [address] Email: [email or web address] Vaughn Thorne MD Attending Provider Physician Referring Provider Specialty: Urology Address: [address] [place] [address], [id number] Email: Visit Number Visit Number 6 Discharge Summary PT-OP-B Current Condition Start: 02/01/21 07:57 Freq: Status: Active Protocol: Document 02/01/21 09:30 AMB (Rec: 02/01/21 09:59 AMB [id number]) Current Condition History of Current Condition Onset Date December 01 Current Complaints SARAH History of Current Condition Frequent UTIs led pt to have open prostatectomy, has been having incontinence since then , about the same. Feels like kegels increase the leaking briefly. Leaks when moving from sit to stand. Feels like when doing a kegel at the beginning a little urine leaks out and then can stop it and go to the bathroom. Treatment Goals Patient/Caregiver Goals stop leaking Personal Factors Other Personal Factors That May Effect Hx recurrent UTI Therapy/Recovery PT-OP-C Subjective Start: 02/01/21 07:57 Freq: Status: Active Protocol: Document 03/15/21 09:45 AMB (Rec: 03/15/21 10:18 AMB [id number]) OP-PT Subjective Patient Comments Patient Comments Getting better slowly. Way better than when I started, the briefs don't get nearly as wet and they last a lot longer. PT-OP-I Pelvic Floor Start: 02/01/21 07:57 Freq: Status: Active Protocol: Document 02/01/21 09:45 AMB (Rec: 02/01/21 10:17 AMB [id number]) Pelvic Floor Assessment Urine Pelvic Floor Surgery Yes: open prostatectomy November 2020 Leakage Cause Cough,Exercise,Lifting,Sneeze Other Leakage Causes sit to stand Leaks Per Day constant Nocturia 1 Urine Pad Type Depends SEMG (uV) Baseline 0.6 Quick Contraction 40 10 Second Contraction 22 Recruitment Pattern Good Relaxation Good Holding Good Stability of Hold Good SEMG Stability of Rest Good Contraction Ability Muscle Endurance (Seconds) 10 Number of Quick Contractions In 10 5 Seconds Comments Pelvic Floor Comments Tends to use abs and glutes, cued for breath,otherwise feels strong PT-OP-T Assessment and Plan Start: 02/01/21 07:57 Freq: Status: Active Protocol: Document 03/15/21 09:45 AMB (Rec: 03/15/21 10:18 AMB [id number]) Physical Therapy Assessment Goals Two Impairment Incontinence Short Term Goal (STG) Sung will perform a kegel without leaking. STG Duration Depends on how full the bladder is [employer] Work[employer] Goal (LTG) Sung will move from sit to stand without leaking. LTG Duration Depends on how full the bladder is One Impairment Pelvic floor strength Short Term Goal (STG) Sung will improve his pelvic floor strength so that he can perform a kegel without compensating with his abdominals or gluteals. STG Duration MET Senior Living Goal (LTG) Sung will improve his pelvic floor strength so that he can contract it for 10 seconds while in standing without compensations. LTG Duration MET Assessment Summary Assessment Sung is using about 2pads/day. Fewer leaks at night, but still noticing some leaks, getting up at night. Reports decreased volume of leaks. Feels ready to d/c at this time and will continue with exercises and let us know in about 2 months if he is plateaued, but otherwise should continue to improve independently. Physical Therapy Plan Discharge Physical Therapy Discharge Comments Pt is doing morning and evening exercises
== END 2021-03-17 13:43 ==
LOC: PHYS 09:45
PROVIDERS: Family Provider Student in an Organized Health Care Education/Training Program; PCP Student in an Organized Health Care Education/Training Program; Referring Provider Specialist; Visit Provider Specialist
DX: R32 Unspecified urinary incontinence (principal)
CPT/HCPCS: 97110; 97161

== ENCOUNTER → 2021-04-09 14:37 | Outpatient (CLI) | payer MEDICARE, OTHER, SELFPAY ==
[2020-12-08 15:26] VITALS: BMI 23.7
[2021-04-09 15:12] LABS: Appearance Urine UA CLOUDY; Bilirubin Urine UA NEGATIVE (NEGATIVE); Color Urine UA YELLOW; Glucose Urine UA NEGATIVE (Negative); Ketones Urine UA NEGATIVE (NEGATIVE); Leukocyte Esterase Urine UA 3+ (NEGATIVE); Nitrite Urine UA NEGATIVE (Negative); Occult Blood Urine UA 1+ (Negative); Protein Urine UA 1+ (Negative); Urobilinogen Urine UA 0.2 E.U./dL (0.2); pH Urine UA 5.5 (4.5-8.0)
[2021-04-09 15:34] LABS: Bacteria Urine Many (>30); Culture Indicated Urine Specimen Cultured; RBC Urine 1-5/HPF (0-5/HPF); WBC Urine >100/HPF (0-5/HPF)
== END ==
PROVIDERS: Specialist; Family Provider Student in an Organized Health Care Education/Training Program; PCP Student in an Organized Health Care Education/Training Program; Visit Provider Nurse Practitioner Family
DX: N30.01 Acute cystitis with hematuria (principal); Z87.440 Personal history of urinary (tract) infections; N34.3 Urethral syndrome, unspecified
CPT/HCPCS: 81001; 87077; 87086; 87186

== ENCOUNTER → 2021-06-24 08:21 | Outpatient (CLI) | payer MEDICARE, OTHER, SELFPAY ==
[2020-12-08 15:26] VITALS: BMI 23.7
[2021-06-24 10:55] LABS: Prostate Specific Antigen Scrn 0.218 ng/mL (0.1-4.0)
== END ==
PROVIDERS: Family Provider Student in an Organized Health Care Education/Training Program; PCP Student in an Organized Health Care Education/Training Program; Referring Provider Specialist; Visit Provider Specialist
DX: R97.20 Elevated prostate specific antigen [PSA] (principal)
CPT/HCPCS: 36415; 84153; G0103

== ENCOUNTER → 2021-08-09 07:24 | Outpatient (CLI) | payer MEDICARE, OTHER, SELFPAY ==
[2021-06-29 15:47] VITALS: BMI 23.7
[2021-08-09 07:52] LABS: COVID19 -Nasal RAPID POSITIVE (Negative)
== END ==
PROVIDERS: Family Provider Student in an Organized Health Care Education/Training Program; PCP Student in an Organized Health Care Education/Training Program; Visit Provider Student in an Organized Health Care Education/Training Program
DX: Z20.822 Contact with and (suspected) exposure to COVID-19 (principal)
CPT/HCPCS: 87635

== ENCOUNTER 2021-08-10 08:47 | Emergency (ER) | payer MEDICARE, OTHER, SELFPAY ==
[2021-06-29 15:47] VITALS: BMI 23.7
[2021-08-10] VITALS (7 sets, daily range): BP systolic 151–181; BP diastolic 89–100; PULSE 75–87; RESP 14; TEMP 37; O2SAT 94–97; BMI 23.5
--- NOTE | 2021-08-10 11:55 | ED_ITS ---
HPI - URI/Sore Throat General Chief Complaint: Upper Respiratory Symptoms Stated Complaint: Trouble eating/sleeping, COVID+ Time Seen by Provider: 08/10/21 11:52 Source: patient Mode of arrival: Ambulatory Limitations: no limitations History of Present Illness HPI Narrative: This is a 76-year-old male who comes with complaint of COVID infection he was diagnosed several days ago. Since then he has developed a sore throat which makes it very uncomfortable for him to eat or drink fluids. He states he is able to swallow it is very painful. He has not had fevers. He has had some cough. He denies any chest pain or shortness of breath he denies any nausea or vomiting. He denies any decreasing urine output. No issues with bowel movements. Tried some Mucinex but states it burned his throat. He is on medic ation for hypertension, potassium an aspirin daily he has had prostatectomy for BPH and recurrent urine infections. Patient is a former smoker, occasional alcohol, no illicit. Related Data Home Medications Medication Instructions Recorded Confirmed aspirin 81 mg tablet,delayed 81 mg PO DAILY 01/07/19 08/09/21 release d-mannose 1,000 mg PO BID 05/19/20 08/09/21 magnesium PO DAILY 03/24/21 08/09/21 Previous Rx's Medication Instructions Recorded nitrofurantoin 100 mg PO BID #30 cap 03/19/21 monohydrate/macrocrystals 100 mg capsule (Macrobid) losartan 25 mg tablet 25 mg PO BID #90 tab 06/21/21 potassium chloride 10 mEq 40 meq PO DAILY #720 tab 06/21/21 tablet,extended release aluminum-mag hydroxide-simethicone 5 ml PO 5XD PRN #50 ml 08/10/21 200 mg-200 mg-20 mg/5 mL oral susp (Maalox Advanced) diphenhydramine HCl 12.5 mg/5 mL 12.5 mg (5 mL) PO Q6H PRN #50 ml 08/10/21 oral elixir Allergies Allergy/AdvReac Type Severity Reaction Status Date / Time amoxicillin [From Augmentin] AdvReac Severe Gastrointestinal Verified 08/10/21 09:09 Upset clavulanic acid AdvReac Severe Gastrointestinal Verified 08/10/21 09:09 [From Augmentin] Upset lisinopril [LISINOPRIL] AdvReac Mild feel Verified 08/10/21 09:09 strange Review of Systems Review of Systems ROS Unobtainable: All systems reviewed & are unremarkable except as noted in HPI and below Patient History Medical History BPH w urinary obs/LUTS BPH w/o urinary obs/LUTS Cancer of kidney (~1998) Eczema Elevated PSA Essential hypertension (06/29/11) H/O adenomatous polyp of colon (~07/2017) History of kidney cancer History of recurrent UTI (urinary tract infection) Kidney stones Multinodular goiter Neoplasm of kidney Osteoarthritis Proctitis (~2008) Skin cancer Urinary calculi Surgical History Anesthesia History of nephrectomy (~1998) Status post colonoscopy (~2008) Social History household members: spouse Smoking Status: Former smoker alcohol intake: current Smoking Status: Former smoker alcohol intake frequency: holidays/special occasions only Substance Use Type: does not use Exam Narrative Exam Narrative: GEN: Thin elderly appearing male, alert and oriented x 3, patient appears to be in mild distress. Lying flat in bed. HEENT: Atraumatic, pupils are equal round reactive to light, extraocular movements are intact, nares are clear, TMs are clear with no fluid, there is no conjunctival pallor. Throat is clear without any exudates, erythema, tonsillar enlargement or uvular deviation, patient does have some postnasal drip. He has slightly hoarse voice. HEART: Regular rate and rhythm without murmur, clicks, rubs. LUNGS:Lungs clear to auscultation, no wheezes, rales, crackles, chest moves symmetrically ABD:bowel sounds normal, soft, non-tender, no guarding, rebound, rigidity, no masses noted, no hepatosplenomegaly :No CVA tenderness MSCL: Non-tender, no muscle atrophy, muscles strength 5/5 upper and lower extremities, full range of motion, normal gait NEURO:CN 2-12 intact, sensation normal SKIN: Rash, erythema or other changes. Initial Vital Signs Initial Vital Signs: Vital Signs Temperature 98.6 F 08/10/21 09:04 Pulse Rate 75 08/10/21 09:04 Respiratory Rate 14 04/05/22 09:04 Blood Pressure 151/89 H 08/10/21 09:04 Pulse Oximetry 97 08/10/21 09:04 Course Orders Ordered: Discontinued Medications Dexamethasone (Dexamethasone 10 Mg/Ml Vial) 10 mg PO NOW ONE Stop: 08/10/21 12:22 Last Admin: 08/10/21 12:59 Dose: 10 mg Documented by: PAO Ketorolac Tromethamine (Ketorolac 30 Mg/Ml Vial) 30 mg IM NOW ONE Stop: 08/10/21 12:22 Last Admin: 08/10/21 13:01 Dose: 30 mg Documented by: PAO Vital Signs Vital signs: Vital Signs - 8 hr 08/10/21 12:00 08/10/21 12:01 08/10/21 12:30 Pulse Rate 81 82 87 Blood Pressure 169/99 H 181/95 H Pulse Oximetry 96 96 94 08/10/21 13:00 Pulse Rate 83 Blood Pressure Pulse Oximetry 94 MDM - URI/Sore Throat MDM Narrative Medical decision making narrative: This is a 76-year-old male comes in with complaint sore throat causing him to have difficulty with eating and sleeping. Patient states he is able to swallow it is just painful. He is diagnosed with COVID several days ago. His vital signs are appropriate exam is reassuring. Patient I discussed doing a dose of Toradol IM his renal function appears to be appropriate in stable, dexamethasone 1 time for swelling and discomfort in the throat and magic mouthwash (benadryl elixir with maalox) for home to help with his discomfort. Discharge Plan Departure Patient Disposition: Home Clinical Impression: COVID-19 virus infection, Pharyngitis Instructions: DI for COVID-19 (Suspected or Confirmed ) Activity Restrictions/Additional Instructions: Follow-up this week if you are not having some improvement of your symptoms. COVID infections typically last 10-14 days. You may take ibuprofen up to 600 mg every 6 hours as needed for pain, and or you may take Tylenol up to a 1000 mg every 6 hours. You may mix 5 mL of diphenhydramine (benadryl) elixir with 5mL of maalox and swallow every 4-6 hours as needed for sore throat. There is a prescription for both of these sent to [facility] in [place]. Please return for persistent fevers, increasing pain, inability to swallow your own saliva or secretions, muffled voice, passing out, new chest pain or shortness of breath, persistent vomiting or other new or concerning symptoms. Prescriptions: New diphenhydramine HCl 12.5 mg/5 mL elixir 12.5 mg PO Q6H PRN (Reason: sore throat) Qty: 50 0RF alum-mag hydroxide-simeth [Maalox Advanced] 200-200-20 mg/5 mL suspension 5 ml PO 5XD PRN (Reason: dyspepsia) Qty: 50 0RF Rx Instructions: administer between meals and at bedtime No Action nitrofurantoin monohyd/m-cryst [Macrobid] 100 mg capsule 100 mg PO BID Qty: 30 0RF Rx Instructions: must administer with a meal/food losartan 25 mg tablet 25 mg PO BID Qty: 90 2RF potassium chloride 10 mEq tablet extended release 40 meq PO DAILY Qty: 720 1RF d-mannose 1,000 mg PO BID 0RF aspirin 81 mg tablet,delayed release (DR/EC) 81 mg PO DAILY 0RF magnesium PO DAILY 0RF Referrals: Eric Jeffries MD [Primary Care Provider] -
[2021-08-10] MEDS: DEXAMETHASONE 10 MG/ML VIAL PO (12:59)
[2021-08-10] MEDS: KETOROLAC 30 MG/ML VIAL IM (13:01)
== END 2021-08-10 13:13 | disposition home or self-care (01) ==
PROVIDERS: Emergency Provider Emergency Medicine; Family Provider Student in an Organized Health Care Education/Training Program; PCP Student in an Organized Health Care Education/Training Program
DX: U07.1 COVID-19 (principal)
CPT/HCPCS: 96372; 99283; J1100; J1885

== ENCOUNTER → 2021-12-13 07:04 | Outpatient (CLI) | payer MEDICARE, OTHER, SELFPAY ==
[2021-06-29 15:47] VITALS: BMI 23.7
[2021-12-13 07:41] LABS: Hematocrit 42.6 % (41-53); Hemoglobin 14.7 g/dL (13.5-17.5); Mean Corpuscular HGB Conc 34.6 % (30-36); Mean Corpuscular Hemoglobin 30.1 PG (26-34); Mean Corpuscular Volume 87.1 fL (80-100); Platelet Count 221 X10^3/uL (150-400); Red Blood Cell Count 4.89 X10^6/uL (4.5-5.9)
[2021-12-13 09:42] LABS: BUN Creatinine Ratio 24.4 (6-22); Blood Urea Nitrogen 20 mg/dL (9-20); Calcium 9.2 mg/dL (8.4-10.2); Carbon Dioxide 31 mmol/L (22-32); Chloride 104 mmol/L (98-107); Estimated Glomerular Filt Rate > 60 mL/min (>60); Glucose 89 mg/dL (80-110); HEMOLYSIS < 15 (0-50); Magnesium 1.8 mg/dL (1.6-2.3); Potassium 3.8 mmol/L (3.4-5.1); Sodium 141 mmol/L (137-145)
[2021-12-13 10:15] LABS: Prostate Specific Antigen 0.264 ng/mL (0.10-4.00)
== END ==
PROVIDERS: Family Provider Student in an Organized Health Care Education/Training Program; PCP Student in an Organized Health Care Education/Training Program; Referring Provider Student in an Organized Health Care Education/Training Program; Visit Provider Student in an Organized Health Care Education/Training Program
DX: R97.20 Elevated prostate specific antigen [PSA] (principal); E87.6 Hypokalemia; E61.2 Magnesium deficiency; I10 Essential (primary) hypertension; R19.7 Diarrhea, unspecified; D64.9 Anemia, unspecified
CPT/HCPCS: 36415; 80048; 83735; 84153; 85027

== ENCOUNTER 2022-04-29 12:10 | Emergency (ER) | payer MEDICARE, OTHER, SELFPAY ==
[2021-06-29 15:47] VITALS: BMI 23.7
[2022-04-29] VITALS (13 sets, daily range): BP systolic 161–196; BP diastolic 88–100; PULSE 55–62; RESP 13–21; TEMP 36.5; O2SAT 94–98; BMI 23.7
--- NOTE | 2022-04-29 12:28 | DI.RAD.S_ITS ---
PROCEDURE: XR CHEST 1V INDICATIONS: chest pain TECHNIQUE: One view of the chest was acquired. COMPARISON: [facility], CR, XR CHEST 1V, 07/31/2020, 21:25. FINDINGS: Surgical changes and devices: None. Lungs and pleura: Lungs are clear. No pleural effusions or pneumothorax. Mediastinum: Mildly tortuous thoracic aorta is seen with aortic arch calcifications. Heart size is normal. Bones and chest wall: No suspicious bony lesions. Overlying soft tissues appear unremarkable. IMPRESSION: No acute cardiopulmonary pathology. Dictated by: Rubens Monae M.D. on 04/29/2022 at 12:51 Approved by: Rubens Monae M.D. on 04/29/2022 at 12:55
[2022-04-29 13:25] LABS: Add Manual Diff / Slide Review NO; Basophils Absolute Auto 0 /uL (0-100); Basophils Percent Auto 0.6 % (0-2); Eosinophils Absolute Auto 200 /uL (0-450); Eosinophils Percent Auto 3.4 % (2-4); Hematocrit 41.8 % (41-53); Hemoglobin 14.1 g/dL (13.5-17.5); Lymphocytes Absolute Auto 1100 /uL (1100-4500); Lymphocytes Percent Auto 19.4 % (25-40); Mean Corpuscular HGB Conc 33.7 % (30-36); Mean Corpuscular Hemoglobin 29.6 PG (26-34); Mean Corpuscular Volume 87.7 fL (80-100); Monocytes Absolute Auto 800 /uL (0-900); Monocytes Percent Auto 13.6 % (3-14); Neutrophils Absolute Auto 3500 /uL (1500-7000); Platelet Count 256 X10^3/uL (150-400); Red Blood Cell Count 4.77 X10^6/uL (4.5-5.9); Red Cell Distribution Width 14.1 % (11.6-14.8); White Blood Cell Count 5.6 X10^3/uL (4.5-11.0)
[2022-04-29 13:30] LABS: INR 1.1 (0.9-1.3); Prothrombin Time 12.6 SECONDS (10.1-12.7)
[2022-04-29 13:33] LABS: PTT Partial Thromboplastin Tim 30 SECONDS (26-36)
[2022-04-29 13:40] LABS: Alanine Aminotransferase 19 IU/L (<50); Albumin 3.9 g/dL (3.5-5.0); Albumin Globulin Ratio 1.4 (1.0-2.8); Alkaline Phosphatase 65 U/L (38-126); Aspartate Aminotransferase 24 IU/L (17-59); BUN Creatinine Ratio 28.6 (6-22); Bilirubin Total 0.9 mg/dL (0.2-1.3); Blood Urea Nitrogen 22 mg/dL (9-20); Calcium 9.4 mg/dL (8.4-10.2); Carbon Dioxide 25 mmol/L (22-32); Chloride 108 mmol/L (98-107); Creatine Kinase 64 U/L (55-170); Estimated Glomerular Filt Rate > 60 mL/min (>60); Globulin 2.8 g/dL (1.7-4.1); Glucose 94 mg/dL (80-110); HEMOLYSIS < 15 (0-50); Lipase 96 U/L (23-300); Magnesium 1.8 mg/dL (1.6-2.3); Potassium 3.8 mmol/L (3.4-5.1); Sodium 142 mmol/L (137-145); Total Protein 6.7 g/dL (6.3-8.2)
[2022-04-29 13:50] LABS: Troponin I < 0.012 ng/mL (0.01-0.034)
--- NOTE | 2022-04-29 15:16 | PC.NURSE ---
Pt reports intermittent, right sided chest discomfort that radiates to his left side that comes and goes. Currently at 0/10 discomfort. Pt reports hx of high blood pressure and acid reflex.
--- NOTE | 2022-04-29 16:00 | ED.CHESTPAIN ---
HPI - Chest Pain General Chief Complaint: Chest Pain Stated Complaint: pain acrossed Rside of chest Time Seen by Provider: 04/29/22 15:55 Source: patient Mode of arrival: Ambulatory Limitations: no limitations History of Present Illness HPI narrative: This is a 77-year-old male with history of partial nephrectomy for renal cell carcinoma, prostatectomy for BPH, hypertension and complaint of chest pain for the last 2 days he states it is on the right sometimes sort of goes midline. He states it last about 20 minutes when it occurs it is intermittent it is not persistent nothing seems to make it worse or better. He states similar to something he had many years ago he was put on omeprazole for reflux and it got better. He has not been on omeprazole for quite some time. He states no shortness of breath, no diaphoresis, no nausea, no vomiting, no swelling extremities, no radiation to the neck back or abdomen. Patient has not had any other GI or urinary symptoms. Has had a stress test remotely at least 10 years or more. He states no family history of cardiac disease, pulmonary embolic, he is currently on aspirin 81 mg daily, losartan and D mannose, he had a prostatectomy in the last year for BPH, and partial nephrectomy for possible renal cell carcinoma he states it was a malignant tumor. No tobacco, occasional alcohol, no illicit. His primary care is Dr. Churchill. Related Data Home Medications Medication Instructions Recorded Confirmed aspirin 81 mg tablet,delayed 81 mg PO DAILY 01/07/19 12/28/21 release d-mannose 1,000 mg PO BID 05/19/20 12/28/21 Previous Rx's Medication Instructions Recorded losartan 50 mg tablet 50 mg PO BID #180 tabs 12/16/21 omeprazole 40 mg capsule,delayed 40 mg PO DAILY #30 caps 04/29/22 release Allergies Allergy/AdvReac Type Severity Reaction Status Date / Time amoxicillin [From Augmentin] AdvReac Severe Gastrointestinal Verified 04/29/22 12:26 Upset clavulanic acid AdvReac Severe Gastrointestinal Verified 04/29/22 12:26 [From Augmentin] Upset lisinopril [LISINOPRIL] AdvReac Mild feel Verified 04/29/22 12:26 strange Review of Systems Review of Systems ROS Unobtainable: All systems reviewed & are unremarkable except as noted in HPI and below Patient History Medical History BPH loc w/o ur obs/LUTS BPH w urinary obs/LUTS Cancer of kidney (~1998) COVID-19 Dupuytren's contracture of left hand Eczema Elevated PSA Essential hypertension (06/29/11) H/O adenomatous polyp of colon (~07/2017) History of kidney cancer Kidney stones Multinodular goiter Neoplasm of kidney Osteoarthritis Proctitis (~2008) Skin cancer Urinary calculi Surgical History Anesthesia History of nephrectomy (~1998) Status post colonoscopy (~2008) Social History household members: spouse Smoking Status: Former smoker alcohol intake: current Smoking Status: Former smoker alcohol intake frequency: holidays/special occasions only Substance Use Type: does not use Exam Narrative Exam Narrative: GENERAL: Alert and oriented x three, well nourished male in mild distress. HEENT: Head normocephalic, atraumatic, EOMI, pupils reactive, face symmetric, moist mucous membranes NECK: Supple, full range of motion CARDIOVASCULAR: Regular rate and rhythm without murmurs, rubs or gallops. No reproducible chest pain with palpation. No rash, no skin changes. RESPIRATORY: Breath sounds equal bilaterally, no wheezes rales or rhonchi. ABDOMEN: Soft, nontender. Normoactive bowel sounds all 4 quadrants. No guarding or rebound, rigidity, no mass : No CVA tenderness EXTREMITIES: Normal range of motion, no clubbing or edema. Neurovascularly intact. 2+ radial pulses. NEUROLOGICAL: Cranial nerves II through XII grossly intact. Moving all extremities SKIN: Warm, dry, no petechiae, no rashes or lesions. Initial Vital Signs Initial Vital Signs: Vital Signs Temperature 97.7 F 04/29/22 12:26 Pulse Rate 62 04/29/22 12:26 Respiratory Rate 15 04/29/22 12:26 Blood Pressure 161/89 H 04/29/22 12:26 Pulse Oximetry 98 04/29/22 12:26 Oxygen Delivery Method 04/29/22 12:26 Scores HEART Score Heart Score history: Slightly Suspicious Heart Score EKG: Normal Heart Score Age: > or = 65 years old Heart Score risk factors: 1-2 risk factors Heart Score troponin: < or = to normal limit Heart Score Total: 3 Course Orders Ordered: Discontinued Medications Pantoprazole Sodium (Pantoprazole 40 Mg Vial) 40 mg IV NOW ONE Stop: 04/29/22 16:26 Last Admin: 04/29/22 17:06 Dose: 40 mg Documented By: VALARIE Vital Signs Vital signs: Vital Signs - 8 hr 04/29/22 12:26 Temperature 97.7 F Pulse Rate 62 Respiratory Rate 15 Blood Pressure 161/89 H Pulse Oximetry 98 Oxygen Delivery Method Room Air MDM - Chest Pain Lab Data Result diagrams: 04/29/22 13:10 04/29/22 13:10 Labs: Lab Results 04/29/22 04/29/22 04/29/22 Range/Units 13:10 13:10 13:10 WBC 5.6 (4.5-11.0) X10^3/uL RBC 4.77 (4.5-5.9) X10^6/uL Hgb 14.1 (13.5-17.5) g/dL Hct 41.8 (41-53) % MCV 87.7 (80-100) fL MCH 29.6 (26-34) PG MCHC 33.7 (30-36) % RDW 14.1 (11.6-14.8) % Plt Count 256 (150-400) X10^3/uL Neut % (Auto) 63.0 (50-75) % Lymph % (Auto) 19.4 L (25-40) % [place] % (Auto) 13.6 (3-14) % Eos % (Auto) 3.4 (2-4) % Baso % (Auto) 0.6 (0-2) % Neut # (Auto) 3500 (3087-9428) /uL Lymph # (Auto) 1100 (8663-5149) /uL [place] # (Auto) 800 (0-900) /uL Eos # (Auto) 200 (0-450) /uL Baso # (Auto) 0 (0-100) /uL PT 12.6 (10.1-12.7) SECONDS INR 1.1 (0.9-1.3) APTT 30 (26-36) SECONDS Sodium 142 (137-145) mmol/L Potassium 3.8 (3.4-5.1) mmol/L Chloride 108 H (98-107) mmol/L Carbon Dioxide 25 (22-32) mmol/L BUN 22 H (9-20) mg/dL Creatinine 0.77 (0.66-1.25) mg/dL Estimated GFR > 60 (>60) mL/min BUN/Creatinine Ratio 28.6 H (6-22) Glucose 94 (80-110) mg/dL Calcium 9.4 (8.4-10.2) mg/dL Magnesium 1.8 (1.6-2.3) mg/dL Total Bilirubin 0.9 (0.2-1.3) mg/dL AST 24 (17-59) IU/L ALT 19 (<50) IU/L Alkaline Phosphatase 65 (38-126) U/L Total Creatine Kinase 64 (55-170) U/L CK-MB (CK-2) TNP CK-MB (CK-2) Rel Index TNP Troponin I < 0.012 (0.01-0.034) ng/mL Total Protein 6.7 (6.3-8.2) g/dL Albumin 3.9 (3.5-5.0) g/dL Globulin 2.8 (1.7-4.1) g/dL Albumin/Globulin Ratio 1.4 (1.0-2.8) Lipase 96 (23-300) U/L 04/29/22 Range/Units 15:54 WBC (4.5-11.0) X10^3/uL RBC (4.5-5.9) X10^6/uL Hgb (13.5-17.5) g/dL Hct (41-53) % MCV (80-100) fL MCH (26-34) PG MCHC (30-36) % RDW (11.6-14.8) % Plt Count (150-400) X10^3/uL Neut % (Auto) (50-75) % Lymph % (Auto) (25-40) % Vermilion % (Auto) (3-14) % Eos % (Auto) (2-4) % Baso % (Auto) (0-2) % Neut # (Auto) (6235-7803) /uL Lymph # (Auto) (8990-4147) /uL Vermilion # (Auto) (0-900) /uL Eos # (Auto) (0-450) /uL Baso # (Auto) (0-100) /uL PT (10.1-12.7) SECONDS INR (0.9-1.3) APTT (26-36) SECONDS Sodium (137-145) mmol/L Potassium (3.4-5.1) mmol/L Chloride (98-107) mmol/L Carbon Dioxide (22-32) mmol/L BUN (9-20) mg/dL Creatinine (0.66-1.25) mg/dL Estimated GFR (>60) mL/min BUN/Creatinine Ratio (6-22) Glucose (80-110) mg/dL Calcium (8.4-10.2) mg/dL Magnesium (1.6-2.3) mg/dL Total Bilirubin (0.2-1.3) mg/dL AST (17-59) IU/L ALT (<50) IU/L Alkaline Phosphatase (38-126) U/L Total Creatine Kinase (55-170) U/L CK-MB (CK-2) CK-MB (CK-2) Rel Index Troponin I < 0.012 (0.01-0.034) ng/mL Total Protein (6.3-8.2) g/dL Albumin (3.5-5.0) g/dL Globulin (1.7-4.1) g/dL Albumin/Globulin Ratio (1.0-2.8) Lipase (23-300) U/L Imaging Data Chest x-ray: Radiologist's Impression: Reagan Holder??77??M??1945 ? Allergy/Adv: amoxicillin, clavulanic acid, lisinopril (More??) Close Chest X-Ray (Signed) Rubens Monae - 04/29/22 Telemetry Strips 11/30/20 Chest X-Ray (Signed) Meena Claire - 07/31/20 Chest X-Ray (Signed) Delio Oliver - 11/03/19 Finger X-Ray (Signed) Mary Stearns - 09/24/18 Shoulder X-Ray (Signed) Mary Stearns - 08/21/18 Clavicle X-Ray (Signed) Mary Stearns - 08/21/[address] [address] XRay Report Signed Patient: Reagan Holder MR#: [id number] : 1945 Acct:[id number] Age/Sex: 77 / M Date of Service: 04/29/22 Loc: ED Accession Number: [id number] ?? Procedure: XR chest 1V Ordering Provider: Henna Tucker D.O. PROCEDURE:? XR CHEST 1V ? INDICATIONS:? chest pain ? TECHNIQUE:? One view of the chest was acquired.? ? COMPARISON:? [facility], CR, XR CHEST 1V, 07/31/2020, 21:25. ? FINDINGS:? ? Surgical changes and devices:? None.? ? Lungs and pleura:? Lungs are clear.? No pleural effusions or pneumothorax.? ? Mediastinum:? Mildly tortuous thoracic aorta is seen with aortic arch calcifications.? Heart size is normal. ? Bones and chest wall:? No suspicious bony lesions.? Overlying soft tissues appear unremarkable.? ? IMPRESSION:? No acute cardiopulmonary pathology. ? ? Dictated by: Rubens Monae M.D. on 04/29/2022 at 12:51 ? ? Approved by: Rubens Monae M.D. on 04/29/2022 at 12:55?? ECG Data Attestation: I personally reviewed and interpreted this ECG as follows: Prior ECG tracings: available for review Interpretation: Sinus bradycardia incomplete bundle-branch, rate of 53 AK 182 QRS of [address] elevation. No depression noted. EKG 2. Shows sinus bradycardia with a rate of 56 AK 202, QRS of 102, QTC of 465. No dynamic changes noted. There is a single beat which has what appears to probably be an atrial or PVC beat. It is not in the other beats in the leads 2 and 3. No elevation, no depression otherwise noted. Patient has prior EKG from 07/31/2020 no dynamic changes appreciated patient typically is bradycardic. MDM Narrative Medical decision making narrative: This is a 77-year-old male with complaint of chest pain no alleviating or exacerbating symptoms, he is a history of hypertension, he is on an aspirin daily, no dynamic changes or ST segment changes. States that he has negative CBC, CMP, troponin, chest x-ray is negative for infectious or structural changes. Repeat troponin and EKG show no acute or dynamic changes. Discussed with patient have not completely ruled out a cardiac cause, I would recommend stress testing and follow-up with primary care. Patient was given a dose of Protonix he is asymptomatic in the department. Discharge Plan Departure Patient Disposition: Home Clinical Impression: Atypical chest pain Instructions: DI for Atypical Chest Pain Activity Restrictions/Additional Instructions: Please follow-up with your physician for recheck and stress testing. You may continue home medications as prescribed. You can restart omeprazole 1 tablet 40 mg daily. Please return for new or recurrent symptoms, persistent chest pain, shortness of breath, lightheadedness or passing out, sweatiness, nausea or vomiting, new swelling in her extremities or other new or concerning changes. Prescriptions: New omeprazole 40 mg capsule,delayed release(DR/EC) 40 mg PO DAILY Qty: 30 0RF No Action losartan 50 mg tablet 50 mg PO BID Qty: 180 3RF d-mannose 1,000 mg PO BID aspirin 81 mg tablet,delayed release (DR/EC) 81 mg PO DAILY Referrals: Eric Jeffries MD [Primary Care Provider] - Visit Report Forms: Patient Portal/API
[2022-04-29 16:29] LABS: Troponin I < 0.012 ng/mL (0.01-0.034)
[2022-04-29] MEDS: PANTOPRAZOLE 40 MG VIAL IV (17:06)
== END 2022-04-29 17:38 | disposition home or self-care (01) ==
PROVIDERS: Emergency Provider Emergency Medicine; Family Provider Student in an Organized Health Care Education/Training Program; PCP Student in an Organized Health Care Education/Training Program
DX: R07.89 Other chest pain (principal)
CPT/HCPCS: 36415; 71045; 80053; 82550; 83690; 83735; 84484; 85025; 85610; 85730; 93005; 96374; 99284; C9113

== ENCOUNTER → 2022-05-23 09:49 | Outpatient (CLI) | payer MEDICARE, OTHER, SELFPAY ==
[2021-06-29 15:47] VITALS: BMI 23.7
[2022-05-23 10:16] LABS: COVID19 -Nasal RAPID Negative (Negative)
== END ==
PROVIDERS: Radiology Diagnostic Radiology; Family Provider Student in an Organized Health Care Education/Training Program; PCP Student in an Organized Health Care Education/Training Program; Referring Provider Student in an Organized Health Care Education/Training Program; Visit Provider Student in an Organized Health Care Education/Training Program
DX: Z20.822 Contact with and (suspected) exposure to COVID-19 (principal)
CPT/HCPCS: 87635; C9803

== ENCOUNTER → 2022-05-24 07:41 | Outpatient (CLI) | payer MEDICARE, OTHER, SELFPAY ==
[2021-06-29 15:47] VITALS: BMI 23.7
--- NOTE | 2022-05-24 18:56 | DI.NM.S_ITS ---
DATE OF SERVICE: 05/24/2022 PROCEDURE PERFORMED: Exercise stress test. INDICATION: Chest pain. CARDIAC STRESS: The patient underwent exercise stress test under the supervision of an attending staff. He walked on Faizan protocol for 8 minutes and 32 seconds, achieved 85 percent of target with maximum heart rate of 123 beats per minute. Resting blood pressure 158/100 mmHg. Peak blood pressure 180/115 mmHg. Achieved 10.1 METs of workload. ANI -36 percent. Baseline rhythm was sinus with occasional PVCs. During stress, no convincing ischemic changes seen. No significant arrhythmias seen. No ischemic symptoms. The patient felt fatigue. CONCLUSION: Exercise stress test is negative for inducible ischemia. Hypertensive blood pressure response. Peak blood pressure 180/115 mmHg. Good exercise tolerance. Functional aerobic impairment -36 percent. No ischemic symptoms or significant arrhythmias seen. Overall, low-risk exercise stress test. Reagan Holder - KYUNG/shubham/lc doc#: [id number]/job#: [id number] dd: 05/24/2022 18:13:00 dt: 05/24/2022 18:39:00 DICTATING /COPIES TO: Nigel Ny MD COPIES MNE: WILBERTO;
== END ==
PROVIDERS: Family Provider Student in an Organized Health Care Education/Training Program; PCP Student in an Organized Health Care Education/Training Program; Referring Provider Student in an Organized Health Care Education/Training Program; Visit Provider Student in an Organized Health Care Education/Training Program
DX: R07.89 Other chest pain (principal)
CPT/HCPCS: 93017

== ENCOUNTER → 2022-07-13 08:46 | Outpatient (CLI) | payer MEDICARE, OTHER, SELFPAY ==
[2021-06-29 15:47] VITALS: BMI 23.7
[2022-07-14 15:28] LABS: Fecal Immunochemical Test Negative (Negative)
== END ==
PROVIDERS: Family Provider Student in an Organized Health Care Education/Training Program; PCP Student in an Organized Health Care Education/Training Program; Referring Provider Student in an Organized Health Care Education/Training Program; Visit Provider Student in an Organized Health Care Education/Training Program
DX: Z12.11 Encounter for screening for malignant neoplasm of colon (principal)
CPT/HCPCS: 82274

== ENCOUNTER 2023-02-07 08:59 | Emergency (ER) | payer MEDICARE, OTHER, SELFPAY ==
[2021-06-29 15:47] VITALS: BMI 23.7
[2023-02-07] VITALS (19 sets, daily range): BP systolic 161–202; BP diastolic 94–113; PULSE 52–68; RESP 14–24; TEMP 36.7; O2SAT 94–97; BMI 23.7
--- NOTE | 2023-02-07 09:00 | DI.RAD.S_ITS ---
PROCEDURE: XR CHEST 1V INDICATIONS: Chest pain TECHNIQUE: One view of the chest was acquired. COMPARISON: [facility], CR, XR CHEST 1V, 11/03/2019, 8:02. [facility], CR, XR CHEST 1V, 04/29/2022, 12:39. FINDINGS: Surgical changes and devices: Surgical clips in right upper quadrant possibly related to prior cholecystectomy. Recommend confirmation with prior surgical history. Lungs and pleura: Lungs are clear. No pleural effusions or pneumothorax. Mediastinum: Mediastinal contours appear normal. Heart size is normal. Bones and chest wall: No suspicious bony lesions. Overlying soft tissues appear unremarkable. IMPRESSION: Portable chest within normal limits for age. Dictated by: Dayne Morales M.D. on 02/07/2023 at 10:09 Approved by: Dayne Morales M.D. on 02/07/2023 at 10:11
--- NOTE | 2023-02-07 09:10 | ED_ITS ---
HPI - General Adult General Chief complaint: Chest Pain Stated complaint: chest discomft/left arm tingly Time Seen by Provider: 02/07/23 09:00 Source: patient Mode of arrival: Ambulatory Limitations: no limitations History of Present Illness HPI narrative: Patient is a 77-year-old male. Has a history of high blood pressure and reflux disease. Is here for evaluation of chest discomfort and left arm tingling. He states his symptoms started last evening. He did get a sleep last night when he woke up this morning the symptoms were still there. Not worse with palpation or movement. He states that the symptoms do seem to come and go somewhat and at the time of my evaluation they were ?less? than what it was last evening. No fevers. He has had symptoms like this in the past and was told that it was reflux disease although he did take some Tums this morning and it did not help any of his symptoms. Prior history of coronary artery disease. Related Data Home Medications Medication Instructions Recorded Confirmed aspirin 81 mg tablet,delayed 81 mg PO DAILY 01/07/19 05/31/22 release d-mannose 1,000 mg PO BID 05/19/20 05/31/22 Previous Rx's Medication Instructions Recorded omeprazole 40 mg capsule,delayed 40 mg PO DAILY #30 caps 04/29/22 release losartan 50 mg tablet 50 mg PO BID #180 tabs 11/22/22 Allergies Allergy/AdvReac Type Severity Reaction Status Date / Time amoxicillin [From Augmentin] AdvReac Severe Gastrointestinal Verified 02/07/23 09:13 Upset clavulanic acid AdvReac Severe Gastrointestinal Verified 02/07/23 09:13 [From Augmentin] Upset lisinopril [LISINOPRIL] AdvReac Mild feel Verified 02/07/23 09:13 strange Review of Systems Constitutional Constitutional: Reports system reviewed and no additional complaints, except as documented Cardiovascular Cardiovascular: Reports system reviewed and no additional complaints, except as documented Respiratory Respiratory: Reports system reviewed and no additional complaints, except as d ocumented Gastrointestinal Gastrointestinal: Reports system reviewed and no additional complaints, except as documented Integumentary/Breasts Skin/Breast: Reports system reviewed and no additional complaints, except as documented Neurologic Neurologic: Reports system reviewed and no additional complaints, except as documented Hematologic/Lymphatic On Anticoagulants: No Patient History Medical History Absent-mindedness Cancer of kidney (~1998) COVID-19 Dupuytren's contracture of left hand Eczema Elevated PSA Essential hypertension (06/29/11) H/O adenomatous polyp of colon (~07/2017) Multinodular goiter Osteoarthritis Proctitis (~2008) Skin cancer Urinary calculi Surgical History Anesthesia History of nephrectomy (~1998) Status post colonoscopy (~2008) Social History household members: spouse Smoking Status: Former smoker alcohol intake: current Smoking Status: Former smoker alcohol intake frequency: holidays/special occasions only Substance Use Type: does not use Exam Initial Vital Signs Initial Vital Signs: Vital Signs Temperature 98.1 F 02/07/23 09:00 Pulse Rate 61 02/07/23 09:00 Respiratory Rate 16 02/07/23 09:00 Blood Pressure 202/113 H 02/07/23 09:00 Pulse Oximetry 97 02/07/23 09:00 Oxygen Delivery Method Room Air 02/07/23 09:00 Const General: cooperative, comfortable and No ill appearing HENMT Head: normal to inspection and normocephalic Resp Effort & Inspection: normal respiratory effort Auscultation: clear to auscultation bilaterally Cardio Rate: regular rate Rhythm: regular rhythm GI Palpation: soft Skin General: no rashes or lesions noted Neuro General: patient alert and patient awake Extrem General: No edema Course Orders Ordered: ED Orders 02/07/23 09:00 XR chest 1V Stat 02/07/23 09:07 EKG-12 Lead Stat 02/07/23 09:10 Complete Blood Count AUTO DIFF Stat Comprehensive Metabolic Panel Stat Lipase Stat PTT Partial Thromboplastin Beny Stat Prothrombin Time INR Stat Troponin & CK Cardiac Panel Stat 02/07/23 11:23 Troponin & CK Cardiac Panel Stat 02/07/23 12:15 PTT Partial Thromboplastin Beny Q6H 02/07/23 18:15 PTT Partial Thromboplastin Beny Q6H 02/08/23 00:15 PTT Partial Thromboplastin Beny Q6H 02/08/23 05:00 Hemoglobin and Hematocrit DAILY Platelet Count DAILY 02/08/23 06:15 PTT Partial Thromboplastin Beny Q6H 02/09/23 05:00 Hemoglobin and Hematocrit DAILY Platelet Count DAILY Heparin Sodium/Dextrose (Heparin Drip) 25,000 unit in 500 mls @ 20 mls/hr IV CONT MARBELLA; Protocol Last Admin: 02/07/23 12:40 Dose: 1,000 units/hr, 20 mls/hr Documented By: BROOKE Co-signed By: VAMSHI Discontinued Medications Aspirin (Aspirin 81 Mg Chew Tab) 324 mg PO NOW ONE Stop: 02/07/23 10:06 Last Admin: 02/07/23 10:09 Dose: 324 mg Documented By: BROOKE Clonidine HCl (Clonidine 0.1 Mg Tablet) 0.1 mg PO NOW ONE Stop: 02/07/23 12:08 Last Admin: 02/07/23 12:47 Dose: 0.1 mg Documented By: BROOKE Al Hydrox/Mg Hydrox/Simethicone 20 ml/ Lidocaine HCl 15 ml 0 ml PO NOW ONE Stop: 02/07/23 09:11 Last Admin: 02/07/23 09:21 Dose: 20 ml Documented By: BROOKE Heparin Sodium (Porcine) (Heparin 5,000 Unit/Ml Vial) 5,000 unit IV NOW ONE Stop: 02/07/23 12:07 Last Admin: 02/07/23 12:39 Dose: 5,000 unit Documented By: BROOKE Pantoprazole Sodium (Pantoprazole 40 Mg Vial) 40 mg IV NOW ONE Stop: 02/07/23 09:11 Last Admin: 02/07/23 09:21 Dose: 40 mg Documented By: BROOKE Vital Signs Vital signs: Vital Signs - 8 hr 02/07/23 09:00 02/07/23 09:05 02/07/23 09:06 Temperature 98.1 F Pulse Rate 61 54 L 59 L Respiratory Rate 16 17 19 Blood Pressure 202/113 H Pulse Oximetry 97 97 97 Oxygen Delivery Method Room Air 02/07/23 09:06 02/07/23 09:30 02/07/23 09:30 Temperature Pulse Rate 53 L Respiratory Rate 20 Blood Pressure 202/113 H 175/109 H Pulse Oximetry 96 Oxygen Delivery Method Room Air 02/07/23 10:00 02/07/23 10:00 02/07/23 10:30 Temperature Pulse Rate 53 L Respiratory Rate 17 Blood Pressure 181/102 H 173/103 H Pulse Oximetry 96 Oxygen Delivery Method 02/07/23 10:30 02/07/23 11:00 02/07/23 11:00 Temperature Pulse Rate 52 L 54 L Respiratory Rate 14 19 Blood Pressure 180/103 H Pulse Oximetry 96 96 Oxygen Delivery Method 02/07/23 12:47 Temperature Pulse Rate Respiratory Rate Blood Pressure 198/103 H Pulse Oximetry Oxygen Delivery Method Medical Decision Making Lab Data Lab results reviewed: Yes I reviewed the patient's lab results. 02/07/23 09:10 02/07/23 09:10 Labs: Lab Results 02/07/23 02/07/23 02/07/23 Range/Units 09:10 09:10 09:10 WBC 4.6 (4.5-11.0) X10^3/uL RBC 4.83 (4.5-5.9) X10^6/uL Hgb 14.5 (13.5-17.5) g/dL Hct 41.9 (41-53) % MCV 86.8 (80-100) fL MCH 30.1 (26-34) PG MCHC 34.6 (30-36) % RDW 14.2 (11.6-14.8) % Plt Count 250 (150-400) X10^3/uL Neut % (Auto) 56.6 (50-75) % Lymph % (Auto) 24.2 L (25-40) % Lander % (Auto) 14.6 H (3-14) % Eos % (Auto) 3.9 (2-4) % Baso % (Auto) 0.7 (0-2) % Neut # (Auto) 2600 (4178-8443) /uL Lymph # (Auto) 1100 (4570-4342) /uL Lander # (Auto) 700 (0-900) /uL Eos # (Auto) 200 (0-450) /uL Baso # (Auto) 0 (0-100) /uL PT 12.9 H (10.1-12.7) SECONDS INR 1.1 (0.9-1.3) APTT 32 (26-36) SECONDS Sodium 139 (137-145) mmol/L Potassium 3.8 (3.4-5.1) mmol/L Chloride 104 (98-107) mmol/L Carbon Dioxide 30 (22-32) mmol/L BUN 20 (9-20) mg/dL Creatinine 0.82 (0.66-1.25) mg/dL Estimated GFR > 60 (>60) mL/min BUN/Creatinine Ratio 24.4 H (6-22) Glucose 97 (80-110) mg/dL Calcium 9.9 (8.4-10.2) mg/dL Total Bilirubin 1.3 (0.2-1.3) mg/dL AST 22 (17-59) IU/L ALT 16 (<50) IU/L Alkaline Phosphatase 59 (38-126) U/L Total Creatine Kinase 44 L (55-170) U/L Troponin I 0.096 H (0.01-0.034) ng/mL Total Protein 6.6 (6.3-8.2) g/dL Albumin 3.9 (3.5-5.0) g/dL Globulin 2.7 (1.7-4.1) g/dL Albumin/Globulin Ratio 1.4 (1.0-2.8) Lipase 55 (23-300) U/L 02/07/23 Range/Units 11:23 WBC (4.5-11.0) X10^3/uL RBC (4.5-5.9) X10^6/uL Hgb (13.5-17.5) g/dL Hct (41-53) % MCV (80-100) fL MCH (26-34) PG MCHC (30-36) % RDW (11.6-14.8) % Plt Count (150-400) X10^3/uL Neut % (Auto) (50-75) % Lymph % (Auto) (25-40) % Lander % (Auto) (3-14) % Eos % (Auto) (2-4) % Baso % (Auto) (0-2) % Neut # (Auto) (7571-8221) /uL Lymph # (Auto) (4961-9488) /uL Lander # (Auto) (0-900) /uL Eos # (Auto) (0-450) /uL Baso # (Auto) (0-100) /uL PT (10.1-12.7) SECONDS INR (0.9-1.3) APTT (26-36) SECONDS Sodium (137-145) mmol/L Potassium (3.4-5.1) mmol/L Chloride (98-107) mmol/L Carbon Dioxide (22-32) mmol/L BUN (9-20) mg/dL Creatinine (0.66-1.25) mg/dL Estimated GFR (>60) mL/min BUN/Creatinine Ratio (6-22) Glucose (80-110) mg/dL Calcium (8.4-10.2) mg/dL Total Bilirubin (0.2-1.3) mg/dL AST (17-59) IU/L ALT (<50) IU/L Alkaline Phosphatase (38-126) U/L Total Creatine Kinase 51 L (55-170) U/L Troponin I 0.136 H* (0.01-0.034) ng/mL Total Protein (6.3-8.2) g/dL Albumin (3.5-5.0) g/dL Globulin (1.7-4.1) g/dL Albumin/Globulin Ratio (1.0-2.8) Lipase (23-300) U/L Imaging Data Chest x-ray: Radiologist's Impression: PROCEDURE:? XR CHEST 1V ? INDICATIONS:? Chest pain ? TECHNIQUE:? One view of the chest was acquired.? ? COMPARISON:? [facility], CR, XR CHEST 1V, 11/03/2019, 8:02.? [facility], CR, XR CHEST 1V, 04/29/2022, 12:39. ? FINDINGS:? ? Surgical changes and devices:? Surgical clips in right upper quadrant possibly related to prior cholecystectomy.? Recommend confirmation with prior surgical history.? ? Lungs and pleura:? Lungs are clear.? No pleural effusions or pneumothorax.? ? Mediastinum:? Mediastinal contours appear normal.? Heart size is normal.? ? Bones and chest wall:? No suspicious bony lesions.? Overlying soft tissues appear unremarkable.? ? ? IMPRESSION:? Portable chest within normal limits for age. ECG Data Attestation: I personally reviewed and interpreted this ECG as follows: Interpretation: Sinus bradycardia Ventricular rate of 55 Normal axis LVH QTC [address] T wave changes Sinus bradycardia Ventricular rate of 58 Normal QRS Normal QTC LVH Nonspecific ST T wave changes Unchanged from prior EKG MDM Narrative Medical decision making narrative: Hypertensive upon arrival but this improved without specific intervention here in the ER. He was given an aspirin. He quickly became asymptomatic after arrival. He would some improvement with a GI cocktail however he does have nonspecific changes on his EKG and his troponin was rising. I did discuss the case with Dr. Prado [facility] at [facility] who agrees to see the patient upon transfer. I then discussed the case with hospitalist on-call [facility] who accepts the patient for transfer. Patient is stable. He was informed of the need for transfer. He expressed understanding and agreement. Discharge Plan Departure Patient Disposition: [facility] Clinical Impression: Non-ST elevation GA (NSTEMI), Hypertension Prescriptions: No Action losartan 50 mg tablet 50 mg PO BID Qty: 180 0RF d-mannose 1,000 mg PO BID aspirin 81 mg tablet,delayed release (DR/EC) 81 mg PO DAILY omeprazole 40 mg capsule,delayed release(DR/EC) 40 mg PO DAILY Qty: 30 0RF Referrals: Eric Jeffries MD [Primary Care Provider] -
[2023-02-07] MEDS: PANTOPRAZOLE 40 MG VIAL IV (09:21)
[2023-02-07] MEDS: MAG HYDROX/ALUMINUM/SIMETH SUS 20 ML, LIDOCAINE VISCOUS 2% 15 ML PO (09:21)
[2023-02-07 09:23] LABS: Add Manual Diff / Slide Review NO; Basophils Absolute Auto 0 /uL (0-100); Basophils Percent Auto 0.7 % (0-2); Eosinophils Absolute Auto 200 /uL (0-450); Eosinophils Percent Auto 3.9 % (2-4); Hematocrit 41.9 % (41-53); Hemoglobin 14.5 g/dL (13.5-17.5); Lymphocytes Absolute Auto 1100 /uL (1100-4500); Lymphocytes Percent Auto 24.2 % (25-40); Mean Corpuscular HGB Conc 34.6 % (30-36); Mean Corpuscular Hemoglobin 30.1 PG (26-34); Mean Corpuscular Volume 86.8 fL (80-100); Monocytes Absolute Auto 700 /uL (0-900); Monocytes Percent Auto 14.6 % (3-14); Neutrophils Absolute Auto 2600 /uL (1500-7000); Neutrophils Percent Auto 56.6 % (50-75); Platelet Count 250 X10^3/uL (150-400); Red Blood Cell Count 4.83 X10^6/uL (4.5-5.9); Red Cell Distribution Width 14.2 % (11.6-14.8); White Blood Cell Count 4.6 X10^3/uL (4.5-11.0)
[2023-02-07 09:43] LABS: Alanine Aminotransferase 16 IU/L (<50); Albumin 3.9 g/dL (3.5-5.0); Albumin Globulin Ratio 1.4 (1.0-2.8); Alkaline Phosphatase 59 U/L (38-126); Aspartate Aminotransferase 22 IU/L (17-59); BUN Creatinine Ratio 24.4 (6-22); Bilirubin Total 1.3 mg/dL (0.2-1.3); Blood Urea Nitrogen 20 mg/dL (9-20); Calcium 9.9 mg/dL (8.4-10.2); Carbon Dioxide 30 mmol/L (22-32); Chloride 104 mmol/L (98-107); Creatine Kinase 44 U/L (55-170); Estimated Glomerular Filt Rate > 60 mL/min (>60); Globulin 2.7 g/dL (1.7-4.1); Glucose 97 mg/dL (80-110); HEMOLYSIS < 15 (0-50); Lipase 55 U/L (23-300); Potassium 3.8 mmol/L (3.4-5.1); Sodium 139 mmol/L (137-145); Total Protein 6.6 g/dL (6.3-8.2)
[2023-02-07 09:54] LABS: Troponin I 0.096 ng/mL (0.01-0.034)
[2023-02-07] MEDS: ASPIRIN 81 MG CHEW TAB 324 MG PO (10:09)
--- NOTE | 2023-02-07 10:42 | PC.NURSE ---
Spoke with Dr. Miller about pt's HTN. Pt took his morning dose of Losartan. No further interventions ordered at this time
[2023-02-07 11:43] LABS: Creatine Kinase 51 U/L (55-170)
[2023-02-07 11:59] LABS: Troponin I 0.136 ng/mL (0.01-0.034)
[2023-02-07 12:14] LABS: INR 1.1 (0.9-1.3); Prothrombin Time 12.9 SECONDS (10.1-12.7)
[2023-02-07 12:17] LABS: PTT Partial Thromboplastin Tim 32 SECONDS (26-36)
[2023-02-07] MEDS: HEPARIN 5,000 UNIT/ML VIAL 5000 UNIT IV (12:39)
[2023-02-07] MEDS: HEPARIN DRIP 25,000 UNIT/500 ML IV.SOLN 20 UNIT IV (12:40)
[2023-02-07] MEDS: cloNIDine 0.1 MG TABLET PO (12:47)
--- NOTE | 2023-02-07 13:56 | PC.NURSE ---
EMS transported pt with Heparin drip infusing at 1000u/hr
== END 2023-02-07 13:53 | disposition short-term general hospital (02) ==
PROVIDERS: Emergency Provider Emergency Medicine; Family Provider Student in an Organized Health Care Education/Training Program; PCP Student in an Organized Health Care Education/Training Program
DX: I21.4 Non-ST elevation (NSTEMI) myocardial infarction (principal); I10 Essential (primary) hypertension
CPT/HCPCS: 36415; 71045; 80053; 82550; 83690; 84484; 85025; 85610; 85730; 93005; 96365; 96375; 99284; C9113; J1644

== ENCOUNTER 2023-02-16 18:43 | Emergency (ER) | payer MEDICARE, OTHER, SELFPAY ==
[2021-06-29 15:47] VITALS: BMI 23.7
[2023-02-16 18:55] VITALS: BP 186/97; PULSE 54; RESP 20; TEMP 36.5; O2SAT 97; BMI 24.3
--- NOTE | 2023-02-16 19:12 | ED.EXTPRO ---
HPI - Extremity Problem General Chief complaint: Extremity Problem,Nontraumatic Stated complaint: Arm injury post Heart Cath Time Seen by Provider: 02/16/23 18:55 Source: patient Mode of arrival: Ambulatory History of Present Illness HPI Narrative: Patient is a 77-year-old male. He just recently was seen in this facility and transferred to another facility secondary to cardiac issues. He did receive a cardiac catheterization. They did use a right radial artery approach. He states that there were no stents placed. The procedure went well. This was a couple days ago. Today he started noticing some pain up around his elbow. He did have an IV in that arm as well. There is no chest pain or shortness of breath. No redness over the skin. No numbness tingling in his hand. Related Data Home Medications Medication Instructions Recorded Confirmed aspirin 81 mg tablet,delayed 81 mg PO DAILY 01/07/19 05/31/22 release d-mannose 1,000 mg PO BID 05/19/20 05/31/22 Previous Rx's Medication Instructions Recorded omeprazole 40 mg capsule,delayed 40 mg PO DAILY #30 caps 04/29/22 release losartan 50 mg tablet 50 mg PO BID #180 tabs 11/22/22 apixaban 5 mg (74 tabs) tablets in See Rx Instructions PO .COMPLEX 02/16/23 a dose pack #74 ea Allergies Allergy/AdvReac Type Severity Reaction Status Date / Time amoxicillin [From Augmentin] AdvReac Severe Gastrointestinal Verified 02/16/23 19:00 Upset clavulanic acid AdvReac Severe Gastrointestinal Verified 02/16/23 19:00 [From Augmentin] Upset lisinopril [LISINOPRIL] AdvReac Mild feel Verified 02/16/23 19:00 strange Review of Systems Constitutional Constitutional: Reports system reviewed and no additional complaints, except as documented Musculoskeletal Musculoskeletal: Reports system reviewed and no additional complaints, except as documented Integumentary/Breasts Skin/Breast: Reports system reviewed and no additional complaints, except as documented Neurologic Neurologic: Reports system reviewed and no additional complaints, except as documented Hematologic/Lymphatic On Anticoagulants: No Patient History Medical History Dupuytren's contracture of left hand COVID-19 Eczema Skin cancer Osteoarthritis Urinary calculi Absent-mindedness Proctitis (~2008) Cancer of kidney (~1998) Elevated PSA H/O adenomatous polyp of colon (~07/2017) Multinodular goiter Essential hypertension (06/29/11) Surgical History Anesthesia History of nephrectomy (~1998) Status post colonoscopy (~2008) Social History household members: spouse Smoking Status: Former smoker alcohol intake: current Smoking Status: Former smoker alcohol intake frequency: holidays/special occasions only Substance Use Type: does not use Exam Initial Vital Signs Initial Vital Signs: Vital Signs Temperature 97.7 F 02/16/23 18:55 Pulse Rate 54 L 02/16/23 18:55 Respiratory Rate 20 02/16/23 18:55 Blood Pressure 186/97 H 02/16/23 18:55 Pulse Oximetry 97 02/16/23 18:55 Oxygen Delivery Method Room Air 02/16/23 18:55 HENNY Head: normal to inspection and normocephalic Cardio Pulses: radial pulses present on the right Skin Other: Some bruising around the radial artery on the right consistent with his recent procedure. There was no other redness. Extrem General: normal to inspection and capillary refill normal Course Orders Ordered: ED Orders 02/16/23 19:11 US periph venous up extrem rt Stat Discontinued Medications Apixaban (Apixaban 5 Mg Tablet) 10 mg PO NOW ONE Stop: 02/16/23 20:30 Last Admin: 02/16/23 20:34 Dose: 10 mg Documented By: BS Vital Signs Vital signs: Vital Signs - 8 hr 02/16/23 18:55 02/16/23 20:41 Temperature 97.7 F Pulse Rate 54 L 56 L Respiratory Rate 20 16 Blood Pressure 186/97 H 176/89 H Pulse Oximetry 97 99 Oxygen Delivery Method Room Air Room Air MDM - Extremity (Nontraumatic) Imaging Data US - DVT: Radiologist's Impression: PROCEDURE: US PERIPH VENOUS UP EXTREM RT INDICATIONS: ENLARGED FOREARM VESSEL POST CATH TECHNIQUE: Real-time imaging, as well as color and pulse Doppler interrogation, was performed of the right upper extremity deep veins from the inferior neck to the antecubital fossa. COMPARISON: None. FINDINGS: The internal jugular vein, visualized portions of the subclavian vein, axillary, and brachial veins are free of intraluminal thrombus. Where physically possible, the veins are normally compressible. Color and pulse Doppler demonstrate normal intraluminal flow, with expected phasicity and pulsatility. Additional scanning of the cephalic and basilic veins of the superficial system demonstrates intraluminal filling defects of basilic vein 3 cm from its junction with axillary vein extending to mid forearm level. Absence of flow is seen. IMPRESSION: Occlusive venous thrombosis involving right basilic vein as above. MDM Narrative Medical decision making narrative: He is neurovascularly intact. Ultrasound today does show a DVT in his right upper extremity. I did tell him that this was most likely related to the IV that was placed in the arm not from the artery catheterization. He is under workup for potentially malignancy either in his liver his kidneys or both. He is not having chest pain or shortness of breath. Given his strong suspicion for malignancy and that he does have a DVT in his upper extremity we will treat with the anticoagulation. He was given a 1st dose here in the ER and a prescription was sent to the pharmacy of his choice. We will have him stop his aspirin. He is not on Plavix. Was instructed to contact his primary doctor and also his oncologist for follow-up. He expressed understanding and agreement with plan. Discharge Plan Departure Patient Disposition: Home Clinical Impression: DVT (deep venous thrombosis) Instructions: DI for Deep Vein Thrombosis Activity Restrictions/Additional Instructions: Take the Eliquis/apixaban as directed. I do recommend that you contact your primary doctor and also your oncologist for follow-up. Return to the emergency department for new or worsening symptoms. Prescriptions: New apixaban 5 mg (74 tabs) tablets,dose pack See Rx Instructions .ROUTE .COMPLEX Qty: 74 0RF Rx Instructions: orally per package directions No Action losartan 50 mg tablet 50 mg PO BID Qty: 180 0RF d-mannose 1,000 mg PO BID aspirin 81 mg tablet,delayed release (DR/EC) 81 mg PO DAILY omeprazole 40 mg capsule,delayed release(DR/EC) 40 mg PO DAILY Qty: 30 0RF Referrals: Eric Jeffries MD [Family Provider] - Stand Alone Forms: Patient Portal/API
[2023-02-16] MEDS: APIXABAN 5 MG TABLET 10 MG PO (20:34)
[2023-02-16 20:41] VITALS: BP 176/89; PULSE 56; RESP 16; O2SAT 99
== END 2023-02-16 20:40 | disposition home or self-care (01) ==
PROVIDERS: Emergency Provider Emergency Medicine; Family Provider Student in an Organized Health Care Education/Training Program; PCP Family Medicine
DX: I82.621 Acute embolism and thrombosis of deep veins of right upper extremity (principal)
CPT/HCPCS: 93971; 99283

== ENCOUNTER 2023-06-02 08:32 | Emergency (ER) | payer MEDICARE, OTHER, SELFPAY ==
[2021-06-29 15:47] VITALS: BMI 23.7
[2023-06-02 08:42] VITALS: BP 208/98; PULSE 57; RESP 16; TEMP 36.3; O2SAT 98; BMI 24.0
--- NOTE | 2023-06-02 09:08 | ED_ITS ---
HPI - Extremity Problem General Chief complaint: Extremity Problem,Nontraumatic Stated complaint: Pain in R arm,hx of blood clot in R arm Time Seen by Provider: 06/02/23 09:02 Source: patient Mode of arrival: Family Vehicle History of Present Illness HPI Narrative: Patient is a 78-year-old male. In February of 2023 patient was diagnosed here in the emergency department with a right upper extremity DVT after having a radial artery approach to a cardiac catheterization. He was placed on Eliquis. He is on Eliquis currently. States he does take it as directed. He states that the symptoms in his right arm had completely resolved until today when he noticed some ?aching? in his right elbow and right forearm. He states this feels very similar to when he was diagnosed with a blood clot initially. He denies chest pain and shortness of breath. He denies any specific trauma. Denies any repetitive activities that would have caused his symptoms. Related Data Home Medications Medication Instructions Recorded Confirmed aspirin 81 mg tablet,delayed 81 mg PO DAILY 01/07/19 06/02/23 release d-mannose 1,000 mg PO BID 05/19/20 05/31/22 atorvastatin 40 mg tablet 40 mg PO DAILY 06/02/23 06/02/23 Previous Rx's Medication Instructions Recorded omeprazole 40 mg capsule,delayed 40 mg PO DAILY #30 caps 04/29/22 release losartan 50 mg tablet 50 mg PO BID #180 tabs 11/22/22 apixaban 5 mg (74 tabs) tablets in See Rx Instructions PO .COMPLEX 02/16/23 a dose pack #74 ea Allergies Allergy/AdvReac Type Severity Reaction Status Date / Time amoxicillin [From Augmentin] AdvReac Severe Gastrointestinal Verified 06/02/23 09:30 Upset clavulanic acid AdvReac Severe Gastrointestinal Verified 06/02/23 09:30 [From Augmentin] Upset lisinopril [LISINOPRIL] AdvReac Mild feel Verified 06/02/23 09:30 strange Review of Systems Musculoskeletal Musculoskeletal: Reports system reviewed and no additional complaints, except as documented Integumentary/Breasts Skin/Breast: Reports system reviewed and no additional complaints, except as documented Neurologic Neurologic: Reports system reviewed and no additional complaints, except as documented Hematologic/Lymphatic On Anticoagulants: Yes Patient History Medical History Dupuytren's contracture of left hand COVID-19 Eczema Skin cancer Osteoarthritis Urinary calculi Absent-mindedness Proctitis (~2008) Cancer of kidney (~1998) Elevated PSA H/O adenomatous polyp of colon (~07/2017) Multinodular goiter Essential hypertension (06/29/11) Surgical History Anesthesia History of nephrectomy (~1998) Status post colonoscopy (~2008) Social History household members: spouse Smoking Status: Former smoker alcohol intake: current Smoking Status: Former smoker alcohol intake frequency: holidays/special occasions only Substance Use Type: does not use Exam Initial Vital Signs Initial Vital Signs: Vital Signs Temperature 97.3 F L 06/02/23 08:42 Pulse Rate 57 L 06/02/23 08:42 Respiratory Rate 16 06/02/23 08:42 Blood Pressure 208/98 H 06/02/23 08:42 Pulse Oximetry 98 06/02/23 08:42 Oxygen Delivery Method Room Air 06/02/23 08:42 Cardio Pulses: radial pulses present on the right Skin General: no rashes or lesions noted Neuro Sensory Exam: no sensory deficits noted Extrem General: capillary refill normal Other: Patient has no specific tenderness to palpation around the right elbow. No tenderness along the medial or lateral epicondyles. Has full range of motion of the elbow. Forearm compartments are soft. No tenderness along the biceps tendon. Right shoulder and right wrist unremarkable. Course Orders Ordered: ED Orders 06/02/23 09:08 US perip venous up extrem rt Stat Vital Signs Vital signs: Vital Signs - 8 hr 06/02/23 08:42 Temperature 97.3 F L Pulse Rate 57 L Respiratory Rate 16 Blood Pressure 208/98 H Pulse Oximetry 98 Oxygen Delivery Method Room Air MDM - Extremity (Nontraumatic) Imaging Data RUQ DVT: Radiologist's Impression: PROCEDURE: US PERIPH VENOUS UP EXTREM RT INDICATIONS: PAIN; RECENT DVT TECHNIQUE: Real-time imaging, as well as color and pulse Doppler interrogation, was performed of the upper extremity deep veins from the inferior neck to the antecubital fossa. COMPARISON: [facility], , US PERIP VENOUS UP EXTREM RT, 02/16/2023, 19:35. FINDINGS: The internal jugular vein, visualized portions of the subclavian vein, axillary, and brachial veins are free of intraluminal thrombus. Where physically possible, the veins are normally compressible. Occlusive thrombus is seen in the mid forearm to the antecubital fossa, within the basilic vein, more than 5 centimeters in the axillary junction. This was previously about 3 centimeters from the axillary junction. IMPRESSION: Basilic vein thrombus is present, in the mid forearm to the antecubital fossa, more than 5 centimeters from the axillary junction. [facility] Narrative Medical decision making narrative: Patient is on apixaban. His right upper extremity DVT ultrasound today shows continued DVT however it is smaller than what it was back in February. I suspect that this is not a new DVT but a continuation of the previous 1. He has no chest pain. No shortness of breath. His external exam is unremarkable. Low suspicion for fracture, compartment syndrome, cellulitis. He does have a follow-up with his primary doctor. Recommended that he continue with his current anticoagulation until he talks with his primary doctor as he may need to be on it longer. He was given return precautions. He expressed understanding and agreement. Discharge Plan Departure Patient Disposition: Home Clinical Impression: Acute deep vein thrombosis of upper extremity Activity Restrictions/Additional Instructions: Recommend that you continue to take your anticoagulation until you see your primary care doctor. Keep the appointment that you have scheduled already with your primary doctor. Return to the emergency department for new or worsening symptoms. Prescriptions: No Action losartan 50 mg tablet 50 mg PO BID Qty: 180 0RF d-mannose 1,000 mg PO BID aspirin 81 mg tablet,delayed release (DR/EC) 81 mg PO DAILY omeprazole 40 mg capsule,delayed release(DR/EC) 40 mg PO DAILY Qty: 30 0RF apixaban 5 mg (74 tabs) tablets,dose pack See Rx Instructions .ROUTE .COMPLEX Qty: 74 0RF Rx Instructions: orally per package directions atorvastatin 40 mg tablet 40 mg PO DAILY Referrals: Anirudh Limon MD [Primary Care Provider] - Stand Alone Forms: Patient Portal/API
--- NOTE | 2023-06-02 09:08 | DI.US.S_ITS ---
PROCEDURE: US [facility] VENOUS UP EXTREM RT INDICATIONS: PAIN; RECENT DVT TECHNIQUE: Real-time imaging, as well as color and pulse Doppler interrogation, was performed of the upper extremity deep veins from the inferior neck to the antecubital fossa. COMPARISON: [facility], , [facility] VENOUS UP EXTREM RT, 02/16/2023, 19:35. FINDINGS: The internal jugular vein, visualized portions of the subclavian vein, axillary, and brachial veins are free of intraluminal thrombus. Where physically possible, the veins are normally compressible. Occlusive thrombus is seen in the mid forearm to the antecubital fossa, within the basilic vein, more than 5 centimeters in the axillary junction. This was previously about 3 centimeters from the axillary junction. IMPRESSION: Basilic vein thrombus is present, in the mid forearm to the antecubital fossa, more than 5 centimeters from the axillary junction. Dictated by: Pelon Vasques M.D. on 06/02/2023 at 10:15 Approved by: Pelon Vasques M.D. on 06/02/2023 at 10:16
[2023-06-02 10:45] VITALS: PULSE 70; RESP 12; O2SAT 99
== END 2023-06-02 10:48 | disposition home or self-care (01) ==
PROVIDERS: Emergency Provider Emergency Medicine; Family Provider Student in an Organized Health Care Education/Training Program; PCP Family Medicine
DX: I82.621 Acute embolism and thrombosis of deep veins of right upper extremity (principal); Z79.01 Long term (current) use of anticoagulants
CPT/HCPCS: 93971; 99283

== ENCOUNTER 2023-08-08 10:04 | Day surgery (SDC) | payer MEDICARE, OTHER, SELFPAY ==
[2021-06-29 15:47] VITALS: BMI 23.7
--- NOTE | 2023-08-08 | PATH_ITS ---
[facility] Accession Number: [id number] No. of containers..01 Tissue . 01 Material submitted: . cecum - CECAL POLYPS . 01 Diagnosis: CECUM, POLYPS: Tubular adenoma in two of four fragments. Sessile serrated adenoma, one fragment. Benign lymphoid aggregate, one fragment. MRV 08/14/2023 1217 Local . 01 Electronically signed: . Carmen Amador MD, Pathologist NPI- [id number] . 01 Gross description: . CECAL POLYPS: Received in formalin are 4 fragment(s) of high, soft tissue measuring 0.3 x 0.3 x 0.2 cm to 0.7 x 0.4 x 0.2 cm submitted entirely in 1 cassette(s) /SABA 08/10/2023 0008 Local . 01 Pathologist provided ICD-10: D12.0 . 01 CPT . 687398 Specimen Comment: A courtesy copy of this report has been sent to [phone] Performed at: 01 [facility] [address] [place] [address], [place], [place] [id number] MD Garth Mckee MD Phone: [phone]
[2023-08-08 10:39] VITALS: BP 136/86; PULSE 74; RESP 20; TEMP 36.4; O2SAT 96; BMI 23.7
[2023-08-08] MEDS: LACTATED RINGERS 1,000 ML 42 ML IV (10:46)
--- NOTE | 2023-08-08 10:48 | PM.PREOP ---
Pre-operative Note COVID-19 COVID-19 status: Not tested Interval Note History & Physical reviewed/Exam performed by Physician: Yes Changes to H&P: No ASA Class (for procedural sedation): II
--- NOTE | 2023-08-08 11:50 | PM.OP.COLON ---
Operative Date/Time/Diagnoses Date of procedure: 08/08/23 Time of procedure: 11:50 Pre-op diagnosis: Positive Cologuard test Post-op diagnosis: same Procedure & Clinicians Study performed: Colonoscopy Same procedure as scheduled: Yes Surgeon: Jose Linda Procedure Notes Procedure in detail: Surgeon: Jose Linda MD Anesthesia: Carmen Newby CRNA Procedure: The patient was brought to the endoscopy suite, placed in left lateral decubitus position. The patient was connected to monitoring devices. A time-out was performed. Sedation was administered. Once the patient was adequately sedated, a digital rectal exam was performed and was normal. The scope was then inserted and advanced to the cecum where the appendiceal orifice was identified and photographed. The scope was then slowly withdrawn over greater than 6 minutes. The mucosa was thoroughly inspected. There were 4 very small polyps in the cecum removed with cold snare and sent together. The scope was retroflexed in the rectum. Moderate internal hemorrhoids were noted. The scope was straightened and removed. The patient was awakened and brought to recovery. Scope withdrawal time: 10 minutes Sedation time: 14 minute EBL: 5 mL Findings: 4 very small polyps in the cecum and internal hemorrhoids Post-procedure Disposition: PACU
[2023-08-08 11:52] VITALS: BP 120/78; PULSE 64; RESP 16; TEMP 36.4; O2SAT 96
[2023-08-08 11:58] VITALS: BP 117/77; PULSE 60; RESP 19; O2SAT 96
[2023-08-08 12:03] VITALS: BP 124/86; PULSE 64; RESP 19; TEMP 37.1; O2SAT 96
--- NOTE | 2023-08-08 12:30 | SUR.PHASEII ---
Discharged by Matias OLIVEIRA.
== END 2023-08-08 12:24 | disposition home or self-care (01) ==
PROVIDERS: Family Provider Student in an Organized Health Care Education/Training Program; PCP Family Medicine; Referring Provider Surgery; Visit Provider Surgery
PROC: 0DJD8ZZ Inspection of Lower Intestinal Tract, Via Natural or Artificial Opening Endoscopic (ICD-10-PCS; CPT 45378; principal; 2023-08-08 11:00)
DX: Z12.11 Encounter for screening for malignant neoplasm of colon (principal); R19.5 Other fecal abnormalities; K64.8 Other hemorrhoids; D12.0 Benign neoplasm of cecum
CPT/HCPCS: 45385; J2704

== ENCOUNTER → 2023-09-19 10:16 | Outpatient (CLI) | payer MEDICARE, OTHER, SELFPAY ==
[2021-06-29 15:47] VITALS: BMI 23.7
--- NOTE | 2023-09-19 10:18 | DI.US.S_ITS ---
PROCEDURE: US [facility] VENOUS UP EXTREM RT INDICATIONS: CHRONIC DVT TECHNIQUE: Real-time imaging, as well as color and pulse Doppler interrogation, was performed of the upper extremity deep veins from the inferior neck to the antecubital fossa. COMPARISON: [facility], , [facility] VENOUS UP EXTREM RT, 06/02/2023, 9:35. FINDINGS: The internal jugular vein, visualized portions of the subclavian vein, axillary, and brachial veins are free of intraluminal thrombus. Where physically possible, the veins are normally compressible. Color and pulse Doppler demonstrate normal intraluminal flow, with expected phasicity and pulsatility. Additional scanning of the cephalic and basilic veins of the superficial system demonstrates normal compressibility, without thrombus. IMPRESSION: No findings of upper extremity deep venous thrombosis can be seen. Dictated by: Rusty Theodore M.D. on 09/19/2023 at 11:31 Approved by: Rusty Theodore M.D. on 09/19/2023 at 11:32
== END ==
PROVIDERS: Family Provider Student in an Organized Health Care Education/Training Program; PCP Family Medicine; Referring Provider Family Medicine; Visit Provider Family Medicine
DX: T81.72XA Complication of vein following a procedure, not elsewhere classified, initial encounter (principal); I82.721 Chronic embolism and thrombosis of deep veins of right upper extremity
CPT/HCPCS: 93971

== ENCOUNTER → 2024-01-14 12:08 | Outpatient (CLI) | payer MEDICARE, OTHER, SELFPAY ==
[2021-06-29 15:47] VITALS: BMI 23.7
== END ==
PROVIDERS: Family Provider Student in an Organized Health Care Education/Training Program; PCP Family Medicine; Visit Provider Student in an Organized Health Care Education/Training Program
DX: R30.0 Dysuria (principal)
CPT/HCPCS: 87077; 87086; 87147; 87186

== ENCOUNTER → 2024-09-04 12:27 | Outpatient (CLI) | payer MEDICARE, OTHER, SELFPAY ==
[2021-06-29 15:47] VITALS: BMI 23.7
--- NOTE | 2024-09-04 12:29 | DI.RAD.S_ITS ---
PROCEDURE: XR SHOULDER RT MIN 2V INDICATIONS: R SHOULDER PAIN TECHNIQUE: 3 views of the shoulder were acquired. COMPARISON: [facility], CR, XR SHOULDER LT MIN 2V, 08/21/2018, 11:02. FINDINGS: Bones: No fractures or dislocations. No suspicious bony lesions. Visualized ribs appear intact. Acromioclavicular joint space narrowing with osteophytosis. Soft tissues: No suspicious soft tissue calcifications. IMPRESSION: Moderate acromioclavicular osteoarthritis. Dictated by: Mj Galan M.D. on 09/04/2024 at 16:36 Approved by: Mj Galan M.D. on 09/04/2024 at 16:36
== END ==
PROVIDERS: PCP Family Medicine; Referring Provider Family Medicine; Visit Provider Family Medicine
DX: M19.011 Primary osteoarthritis, right shoulder (principal); M25.511 Pain in right shoulder
CPT/HCPCS: 73030

== ENCOUNTER → 2024-11-21 16:10 | Outpatient (CLI) | payer MEDICARE, OTHER, SELFPAY ==
[2021-06-29 15:47] VITALS: BMI 23.7
--- NOTE | 2024-11-21 16:11 | DI.US.S_ITS ---
PROCEDURE: US SCROTUM INDICATIONS: TESTICULAR PAIN TECHNIQUE: Real-time scanning was performed of the scrotum and testicles, with image documentation. Color and pulse Doppler interrogation was performed of both testicles. COMPARISON: None. FINDINGS: Right: Testicle is normal in size at 4.8 x 2.1 x 3.8 cm, and homogenous in echotexture. Epididymis is normal in overall size and morphology. A 5 mm cyst in the head of the epididymis. Small hydrocele and varicocele. There is a 7 x 5 mm tunica albuginea cyst. Overlying scrotal skin is normal in thickness. Left: Testicle is normal in size at 4.9 x 2.4 x 3.2 cm, and homogeneous in echotexture. Epididymis is normal in overall size and morphology. A 7 mm cyst in the head of the epididymis. Small hydrocele and varicocele. Overlying scrotal skin is normal in thickness. Doppler: Color and pulse Doppler demonstrate normal and symmetric arterial flow in both testicles. IMPRESSION: 1. There is a 7 mm tunica albuginea cyst on the right. No suspicious focal lesion seen. 2. Mild bilateral hydrocele and varicocele. Dictated by: Edward Zacarias M.D. on 11/23/2024 at 18:20 Approved by: Edward Zacarias M.D. on 11/23/2024 at 18:26
== END ==
LOC: US 16:10
PROVIDERS: PCP Family Medicine; Referring Provider Family Medicine; Visit Provider Family Medicine
DX: N50.89 Other specified disorders of the male genital organs (principal); N44.1 Cyst of tunica albuginea testis; N43.3 Hydrocele, unspecified; I86.1 Scrotal varices; Z80.43 Family history of malignant neoplasm of testis
CPT/HCPCS: 76870; 93975

== ENCOUNTER → 2024-12-07 08:01 | Outpatient (CLI) | payer MEDICARE, OTHER, SELFPAY ==
[2021-06-29 15:47] VITALS: BMI 23.7
== END ==
PROVIDERS: PCP Family Medicine; Visit Provider Chiropractor
DX: R30.0 Dysuria (principal)
CPT/HCPCS: 87077; 87086; 87186

== ENCOUNTER 2025-01-19 23:43 | Inpatient (IN) | payer MEDICARE, OTHER, SELFPAY ==
[2021-06-29 15:47] VITALS: BMI 23.7
[2025-01-19 23:54] VITALS: BP 180/108; PULSE 121; RESP 16; O2SAT 95
--- NOTE | 2025-01-19 23:54 | EKG_ITS ---
[facility] [address] [place] [address] Test Date: 2025-01-19 Pat Name: Reagan Holder Department: [facility] Room: Gender: Male [employer] Buffer: MONIQUE : 1945 Requested By: Order Number: [id number] Reading MD: Neri Mtz MD Measurements Intervals [place] Rate: 104 P: [place]: QRS: -28 QRSD: 104 T: 166 QT: 366 QTc: 481 Interpretive Statements Atrial fibrillation with rapid ventricular response Minimal voltage criteria for LVH, may be normal variant ( R in aVL ) ST & T wave abnormality, consider lateral ischemia Electronically Signed On 01-20-2025 7:47:58 PDT by Neri Mtz MD
[2025-01-19 23:57] VITALS: BP 189/134; PULSE 111; RESP 14
[2025-01-19 23:58] VITALS: BP 180/108; PULSE 120; RESP 18; TEMP 36.5; O2SAT 100; BMI 24.3
[2025-01-20] VITALS (33 sets, daily range): BP systolic 127–198; BP diastolic 77–130; PULSE 53–125; RESP 12–29; TEMP 36.3–36.5; O2SAT 92–97; BMI 23.1
[2025-01-20 00:11] LABS: Add Manual Diff / Slide Review NO; Hematocrit 42.7 % (41-53); Hemoglobin 14.7 g/dL (13.5-17.5); Lymphocytes Absolute Auto 1900 /uL (1100-4500); Mean Corpuscular HGB Conc 34.3 % (30-36); Mean Corpuscular Hemoglobin 29.8 PG (26-34); Mean Corpuscular Volume 86.7 fL (80-100); Platelet Count 235 X10^3/uL (150-400)
[2025-01-20 00:20] LABS: Albumin 4.3 g/dL (3.5-5.0); Albumin Globulin Ratio 1.7 (1.0-2.8); Alkaline Phosphatase 89 U/L (38-126); Blood Urea Nitrogen 23 mg/dL (9-20); Calcium 10.0 mg/dL (8.4-10.2); Carbon Dioxide 31 mmol/L (22-32); Chloride 103 mmol/L (98-107); Estimated Glomerular Filt Rate > 60 mL/min (>60); Globulin 2.6 g/dL (1.7-4.1); Glucose 106 mg/dL (70-99); HEMOLYSIS < 15 (0-50); Lipase 134 U/L (23-300); Potassium 3.4 mmol/L (3.4-5.1); Sodium 141 mmol/L (137-145); Total Protein 6.9 g/dL (6.3-8.2)
[2025-01-20 00:21] LABS: Alanine Aminotransferase 20 IU/L (<50)
--- NOTE | 2025-01-20 00:23 | ED_ITS ---
HPI - Arrhythmia/Palpitations General Chief Complaint: Arrhythmia/Palpitations Stated Complaint: Palpitations Time Seen by Provider: 01/20/25 00:20 Source: patient Mode of arrival: Ambulatory History of Present Illness HPI narrative: 79-year-old male with no known history of atrial fibrillation, has had prior upper extremity DVT 2 years ago after cardiac catheterization [place], was on Eliquis for six-months then discontinued, tonight 1130pm had acute onset of fast heart rate sensation, racing heart sensation, with some anterior chest pain or shortness of breath. No fevers or chills. No recent cough. Denies pain and swelling to legs, as well as to arms. Related Data Home Medications ?Medication ?Instructions ?Recorded ?Confirmed aspirin 81 mg tablet,delayed 81 mg PO DAILY 01/07/19 0 12/07/24 release atorvastatin 40 mg tablet 80 mg PO DAILY 07/12/2307/02 atorvastatin 80 mg tablet 80 mg PO DAILY 12/07/2407/02 losartan 100 1 tab PO DAILY 12/07/2407/02 mg-hydrochlorothiazide 25 mg tablet losartan 50 mg-hydrochlorothiazide 1 tab PO DAILY 07/0212/07/24 12.5 mg tablet Previous Rx's ?Medication ?Instructions ?Recorded omeprazole 40 mg capsule,delayed 40 mg PO DAILY #30 ca ps 04/29/22 release Allergies Allergy/AdvReac Type Severity Reaction Status Date / Time amoxicillin (From Augmentin) AdvReac Severe Gastrointestinal Verified 01/19/25 23:58 Upset clavulanic acid (From AdvReac Severe Gastrointestinal Verified 01/19/25 23:58 Augmentin) Upset lisinopril (LISINOPRIL) AdvReac Mild feel Verified 01/19/25 23:58 strange Patient History Medical History Dupuytren's contracture of left hand COVID-19 Eczema Skin cancer Osteoarthritis Urinary calculi Absent-mindedness Proctitis (~2008) Cancer of kidney (~1998) Elevated PSA H/O adenomatous polyp of colon (~07/2017) Multinodular goiter Essential hypertension (06/29/11) Surgical History Anesthesia History of nephrectomy (~1998) Status post colonoscopy (~2008) Social History household members: spouse Smoking Status: Never smoker alcohol intake: current Smoking Status: Never smoker alcohol intake frequency: holidays/special occasions only Exam Narrative Exam Narrative: GENERAL: Well-developed patient, in mild distress. HEAD: Atraumatic. Normocephalic. EYES: Pupils equal round and reactive. Extraocular motions intact. No scleral icterus. No injection or drainage. ENT: Nose without bleeding, purulent drainage. Throat without erythema, tonsillar hypertrophy or exudate. Airway patent. NECK: Trachea midline. Non tender CARDIOVASCULAR: Fast rate with irregularly irregular rhythm, without murmurs, gallops, or rubs. RESPIRATORY: Clear to auscultation. Breath sounds equal bilaterally. No wheezes, rales, or rhonchi. GASTROINTESTINAL: Abdomen soft, non-tender, nondistended. EXTREMITIES: No edema or joint tenderness. BACK: Nontender without deformity or crepitance. No flank tenderness. NEURO: AOx3. Motor functions grossly nonfocal. SKIN: No rash or erythema of visible areas Initial Vital Signs Initial Vital Signs: Vital Signs Pulse Rate 121 H 01/19/25 23:54 Respiratory Rate 16 01/19/25 23:54 Blood Pressure 180/108 H 01/19/25 23:54 Pulse Oximetry 95 01/19/25 23:54 Scores CHADS-VASc Congestive heart failure: no Hypertension: yes Age 75 years or older: yes Diabetes mellitus: no Stroke, TIA, or TE: no Vascular disease: no Age 65 to 74 years: no Sex category (female): Male CHADS-VASc Score: 3 Course Orders Ordered: ED Orders 01/19/25 23:49 EKG-12 Lead Stat 01/19/25 23:59 Complete Blood Count AUTO DIFF Stat Comprehensive Metabolic Panel Stat Lipase Stat 01/20/25 00:29 D Dimer Stat Acetaminophen (Acetaminophen 325 Mg Tablet) 650 mg PO Q6H PRN PRN Reason: Fever/Mild Pain (1-3) Apixaban (Apixaban 5 Mg Tablet) 5 mg PO BID MARBELLA Atorvastatin Calcium (Atorvastatin 20 Mg Tablet) 80 mg PO DAILY MARBELLA Hydrochlorothiazide (Hydrochlorothiazide 25 Mg Tablet) 12.5 mg PO DAILY MARBELLA Diltiazem HCl 125 mg/ Sodium (Chloride) 125 mls @ 5 mls/hr IV TITRATE [facility]; Protocol Sodium Chloride (Normal Saline 0.9%) 1,000 mls @ 100 mls/hr IV CONT MARBELLA Last Admin: 01/20/25 03:56 Dose: 100 mls/hr Documented By: TOD Losartan Potassium (Losartan 50 Mg Tablet) 50 mg PO DAILY [facility] Metoprolol Succinate (Metoprolol Er 50 Mg Tablet) 50 mg PO BID [facility] Ondansetron HCl (Ondansetron 4 Mg/2 Ml Inj) 4 mg IV NOW PRN PRN Reason: Nausea And Vomiting Ondansetron HCl (Ondansetron 4 Mg Odt) 4 mg PO NOW PRN PRN Reason: Nausea And Vomiting Discontinued Medications Apixaban (Apixaban 5 Mg Tablet) 5 mg PO NOW ONE Stop: 01/20/25 02:51 Last Admin: 01/20/25 03:17 Dose: 5 mg Documented By: ISELA Diltiazem HCl (Diltiazem 25 Mg/5 Ml Sdv) 10 mg IV NOW ONE Stop: 01/20/25 02:19 Last Admin: 01/20/25 02:40 Dose: 10 mg Documented By: ISELA Metoprolol Tartrate (Metoprolol Tartrate 5 Mg/5 Ml Inj) 5 mg IV NOW ONE Stop: 01/20/25 00:21 Last Admin: 01/20/25 00:27 Dose: 5 mg Documented By: ISELA Metoprolol Tartrate (Metoprolol Tartrate 5 Mg/5 Ml Inj) 5 mg IV Q5M [facility] Stop: 01/20/25 01:41 Last Admin: 01/20/25 03:17 Dose: Not Given Documented By: Admin: 01/20/25 01:51 Dose: 5 mg Documented By: Admin: 01/20/25 01:42 Dose: 5 mg Documented By: ISELA Vital Signs Vital signs: Vital Signs - 8 hr 01/19/25 23:54 01/19/25 23:54 01/19/25 23:57 Temperature Pulse Rate 121 H Respiratory Rate 16 Blood Pressure 180/108 H 189/134 H Pulse Oximetry 95 Oxygen Delivery Method 01/19/25 23:57 01/19/25 23:58 01/20/25 00:00 Temperature 97.7 F Pulse Rate 111 H 120 H Respiratory Rate 14 18 Blood Pressure 180/108 H 198/130 H Pulse Oximetry 100 Oxygen Delivery Method Room Air 01/20/25 00:00 01/20/25 00:16 01/20/25 00:16 Temperature Pulse Rate 102 H 116 H Respiratory Rate 15 Blood Pressure 177/99 H Pulse Oximetry 97 95 Oxygen Delivery Method Room Air 01/20/25 00:30 01/20/25 00:30 01/20/25 00:37 Temperature Pulse Rate 110 H Respiratory Rate 17 Blood Pressure 158/106 H 193/118 H Pulse Oximetry 96 Oxygen Delivery Method Room Air 01/20/25 00:37 01/20/25 00:45 01/20/25 00:45 Temperature Pulse Rate 117 H 117 H Respiratory Rate 20 14 Blood Pressure 168/113 H Pulse Oximetry 94 94 Oxygen Delivery Method 01/20/25 00:47 01/20/25 00:47 01/20/25 01:00 Temperature Pulse Rate 105 H 121 H Respiratory Rate 12 29 H Blood Pressure 150/110 H Pulse Oximetry 93 96 Oxygen Delivery Method 01/20/25 01:01 01/20/25 01:01 01/20/25 01:16 Temperature Pulse Rate 114 H 101 H Respiratory Rate 21 14 Blood Pressure 158/101 H Pulse Oximetry 92 94 Oxygen Delivery Method 01/20/25 01:16 01/20/25 01:30 01/20/25 01:30 Temperature Pulse Rate 125 H Respiratory Rate 15 Blood Pressure 158/89 H 163/98 H Pulse Oximetry Oxygen Delivery Method 01/20/25 01:45 01/20/25 01:45 01/20/25 01:49 Temperature Pulse Rate 99 H Respiratory Rate 18 Blood Pressure 172/98 H 155/102 H Pulse Oximetry 95 Oxygen Delivery Method Room Air 01/20/25 01:49 01/20/25 02:00 01/20/25 02:00 Temperature Pulse Rate 109 H 115 H Respiratory Rate 14 15 Blood Pressure 152/96 H Pulse Oximetry 94 95 Oxygen Delivery Method 01/20/25 02:15 01/20/25 02:15 01/20/25 02:30 Temperature Pulse Rate 106 H Respiratory Rate 15 Blood Pressure 148/97 H 150/99 H Pulse Oximetry 94 Oxygen Delivery Method 01/20/25 02:30 01/20/25 02:40 01/20/25 02:45 Temperature Pulse Rate 83 115 H Respiratory Rate 15 Blood Pressure 150/99 H 127/78 Pulse Oximetry 95 Oxygen Delivery Method 01/20/25 02:45 Temperature Pulse Rate 78 Respiratory Rate 21 Blood Pressure Pulse Oximetry 94 Oxygen Delivery Method Room Air MDM - Arrhythmia/Palpitations Lab Data Attestation: I reviewed the patient's lab results. Lab results narrative: White blood cell count 5400, hemoglobin 14.7, platelets adequate. Glucose 106. Normal renal function, serum CO2, electrolytes. Liver functions normal. Lipase normal. Urine dip negative. 01/19/25 23:59 01/19/25 23:59 Labs: Lab Results 01/19/25 Range/Units 23:59 WBC 5.4 (4.5-11.0) X10^3/uL RBC 4.93 (4.5-5.9) X10^6/uL Hgb 14.7 (13.5-17.5) g/dL Hct 42.7 (41-53) % MCV 86.7 (80-100) fL MCH 29.8 (26-34) PG MCHC 34.3 (30-36) % RDW 14.7 (11.6-14.8) % Plt Count 235 (150-400) X10^3/uL Neut % (Auto) 45.1 L (50-75) % Lymph % (Auto) 34.5 (25-40) % [place] % (Auto) 15.3 H (3-14) % Eos % (Auto) 3.5 (2-4) % Baso % (Auto) 1.6 (0-2) % Neut # (Auto) 2400 (5594-7450) /uL Lymph # (Auto) 1900 (2116-2545) /uL [place] # (Auto) 800 (0-900) /uL Eos # (Auto) 200 (0-450) /uL Baso # (Auto) 100 (0-100) /uL D-Dimer 391 (<500) ng/ml Sodium 141 (137-145) mmol/L Potassium 3.4 (3.4-5.1) mmol/L Chloride 103 (98-107) mmol/L Carbon Dioxide 31 (22-32) mmol/L BUN 23 H (9-20) mg/dL Creatinine 0.91 (0.66-1.25) mg/dL Estimated GFR > 60 (>60) mL/min BUN/Creatinine Ratio 25.3 H (6-22) Glucose 106 H (70-99) mg/dL Calcium 10.0 (8.4-10.2) mg/dL Total Bilirubin 0.7 (0.2-1.3) mg/dL AST 26 (17-59) IU/L ALT 20 (<50) IU/L Alkaline Phosphatase 89 (38-126) U/L Troponin I < 0.012 (0.01-0.034) ng/mL Total Protein 6.9 (6.3-8.2) g/dL Albumin 4.3 (3.5-5.0) g/dL Globulin 2.6 (1.7-4.1) g/dL Albumin/Globulin Ratio 1.7 (1.0-2.8) Lipase 134 (23-300) U/L Urine Dip Bedside Urine Glucose Negative Bedside Urine Bilirubin - Negative Bedside Urine Ketone - Negative Urine Specific [place] 1.010 Bedside Urine Occult Blood - Negative Bedside Urine pH 7.0 Bedside Urine Protein - Negative Bedside Urine Urobilinogen - Negative Bedside Urine Nitrite - Negative Bedside Urine Leukocytes - Negative Esterase ECG Data Interpretation: 2354, atrial fibrillation with rapid ventricular response, rate 104. No obvious ST segment elevation, slight lateral ST segment depression, LVH however. QRS 104, QTC 481. 0309, atrial fibrillation with ventricular rate [address]. [address] segment lateral depressions resolved, likely wires red related in 1st study. QRS 102, QTC 428. MDM Narrative Medical decision making narrative: 79-year-old male with no known history of AFib, acute onset your regular fast heart rate racing heart rate symptoms 11:00 p.m. tonight at rest, no associated shortness of breath or nausea or vomiting, no diaphoresis. EKG shows atrial fibrillation with rapid ventricular response. Chest x-ray, no acute changes. See tele radiology report. Lab data: White blood cell count 5400, hemoglobin 14.7, platelets adequate. Glucose 106. Normal renal function, serum CO2, electrolytes. Liver functions normal. Lipase normal. Urine dip negative. D-dimer not elevated. IV metoprolol 5 mg x3, little change in HR, blood pressure still quite elevated, will try calcium channel dolores. IV diltiazem bolus, then infusion. Heart rate improved, blood pressure lower as well. New diagnosis atrial fibrillation, consider admission. PCP [place], will contact PCP or cross cover provider on-call for admission. [id number] Score = 3, correlates to 3.2% stroke risk per year (MedCalc). Patient has also taken Eliquis before for post cardiac catheterization upper extremity DVT. Discussed stroke risks from AFib. Patient willing to start anticoagulation. Oral Eliquis 5 mg tablet. Case discussed with cross cover provider Dr. Toribio who accepts patient for admission Critical Care Time Critical Care Time Critical Care Time: Yes Total Critical Care Time: 35 Attestation: The high probability of a clinically significant, sudden or life threatening deterioration of the [cardiopulmonary] system(s) required my full and direct attention, intervention and personal management. The aggregate critical care time was [35] minutes. This time is in addition to time spent performing reported procedures but includes the following: [x] Data Review and interpretation [x] Patient assessment and monitoring of vital signs [x] Documentation [x] Medication orders and management Discharge Plan Departure Patient Disposition: Admitted As Inpatient Clinical Impression: Atrial fibrillation with rapid ventricular response Admit Date/Time: 01/20/25 02:47 Admit Provider: Dirk Toribio
[2025-01-20] MEDS: METOPROLOL TARTRATE 5 MG/5 ML INJ IV ×3 (00:27→01:51)
--- NOTE | 2025-01-20 02:54 | DI.RAD.S_ITS ---
PROCEDURE: XR CHEST 1V INDICATIONS: dyspnea TECHNIQUE: One view of the chest was acquired. COMPARISON: [facility], CR, XR CHEST 1V, 02/07/2023, 9:23. FINDINGS: Surgical changes and devices: None. Lungs and pleura: Lungs are clear. No pleural effusions or pneumothorax. Mediastinum: Mediastinal contours appear normal. Heart size is normal. Bones and chest wall: No suspicious bony lesions. Overlying soft tissues appear unremarkable. IMPRESSION: No acute cardiopulmonary abnormality is seen. Dictated by: Ever Kumar M.D. on 01/20/2025 at 8:19 Approved by: Ever Kumar M.D. on 01/20/2025 at 8:20
--- NOTE | 2025-01-20 03:08 | DI.ECHO.S_ITS ---
[place] [facility]---------+ [facility] : : [address] : [place] [address] : : [id number] : : Phone: [phone] Echocardiogram Report + + :Name: DINESH ZAPIEN Study Date: 01/20/2025 Height: 75 in : :Hospital ReadingLocation: Weight: 195 lb : : Gender: Male BSA: 2.2 m2 : :: 1945 Age: 79 yrs BP: 136/93 mmHg: :Reason For Study: ATRIAL FIBRILLATION : :Ordering Physician: RADHA, : :IDRK Performed By: Dirk Grove : :Referring: DIRK GARCIA : + + Interpretation Summary Technically difficult study due to chest wall variant. 1) Normal left ventricular size with low normal systolc function (EF 50-55%). 2) Mildly enlarged right ventricle with normal function. 3) There is mild to moderate mitral regurgitation. 4) The ascending aorta is mildly enlarged at 4.3cm. 5) No prior Echo available for comparison Procedure: A two-dimensional transthoracic echocardiogram with color flow and Doppler was performed. The study quality was technically adequate. There is no prior echocardiogram noted for this patient. The patient was in atrial fibrillation with heart rates between 70-107 bpm during the exam. Left Ventricle: The left ventricle is normal in size. Left ventricular wall thickness is mildly increased. Proximal septal thickening is noted. There is no ventricular septal defect visualized. The ejection fraction is estimated to be 50-55%. There are no focal wall motion abnormalities. Diastolic function could not be accurately assessed due to atrial fibrillation. Right Ventricle: The right ventricle is mildly dilated. The right ventricular wall motion is normal. Atria: The left atrium is moderately dilated. Right atrial size is normal. There is no Doppler evidence for an atrial septal defect. Mitral Valve: The mitral valve leaflets appear normal. There is no evidence of stenosis, fluttering, or prolapse. There is mild to moderate mitral regurgitation. Aortic Valve: The aortic valve is trileaflet. The aortic valve opens well. There is no aortic valve stenosis. No aortic regurgitation is present. Tricuspid Valve: The tricuspid valve leaflets are thin and pliable. There is trace tricuspid regurgitation. Pulmonary artery pressures cannot be estimated because of the lack of a measurable TR jet velocity. Pulmonic Valve: The pulmonic valve is not well seen, but is grossly normal. There is trace pulmonic regurgitation. Great Vessels: The aortic root is borderline dilated. The ascending aorta is mildly enlarged. The pulmonary artery is not well visualized, but is probably normal size. The inferior vena cava was not visualized. Pericardium/ Pleura There is no pericardial effusion. MMode/2D Measurements & Calculations LVIDd: 4.9 cm LVOT diam: 2.4 cm LVIDs: 3.7 cm Ao root diam: 4.0 cm FS: 25.5 % asc Aorta Diam: 4.3 cm EPSS: 0.43 cm IVSd: 1.1 cm LVPWd: 1.1 cm LV tinoco. diameter/BSA (cm/m^2): 2.3 LV sys. diameter/BSA (cm/m^2): 1.7 LA A2 area: 25.6 cm2 RA long axis: 3.7 cm LA A4 area: 18.2 cm2 RA area: 10.4 cm2 LA length (vol): 4.8 cm RA vol: 25.1 ml LA vol: 83.1 ml RA : 11.6 ml/m2 LA vol index: 38.3 ml/m2 RVD1 (basal): 4.3 cm RVD2 (mid): 3.0 cm TAPSE: 1.4 cm Doppler Measurements & Calculations Ao V2 max: 131.1 cm/sec LVOT Max Larry: 117.0 cm/sec Ao V2 mean: 92.2 cm/sec LV V1 max P.5 mmHg Ao max P.9 mmHg LV V1 VTI: 23.2 cm Ao mean P.9 mmHg KO(I,D): 4.5 cm2 Ao V2 VTI: 24.2 cm KO(V,D): 4.2 cm2 sev ratio: 0.96 KO indexed to BSA (cm^2/m^2): 2.1 MV E max larry: 63.5 cm/sec TR max larry: 206.2 cm/sec MV A max larry: 14.3 cm/sec TR max P.0 mmHg MV E/A: 4.4 PA V2 max: 81.2 cm/sec Med Peak E' Larry: 6.9 cm/sec PA V2 mean: 58.9 cm/sec E/E' med: 9.2 PA mean P.5 mmHg MV dec time: 0.16 sec PA pr(Accel): 49.9 mmHg SV(LVOT): 108.2 ml Reading Physician:01:05 PM
--- NOTE | 2025-01-20 03:09 | EKG_ITS ---
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
[2025-01-20] MEDS: APIXABAN 5 MG TABLET PO ×2 (03:17→08:13)
[2025-01-20 03:20] LABS: Troponin I < 0.012 ng/mL (0.01-0.034)
[2025-01-20] MEDS: SODIUM CHLORIDE 0.9% 1,000 ML 100 ML IV (03:56)
[2025-01-20 04:03] LABS: Troponin I < 0.012 ng/mL (0.01-0.034)
--- NOTE | 2025-01-20 06:38 | PC.ADMIT ---
[email or web address] [facility] Admission Note: The patient,Reagan Holder,79 y/o, was given written information regarding hospital policies, unit procedures and contact persons. Patient's smoking status: Never smoker. Vital Signs - 8 hr 01/19/25 23:54 01/19/25 23:54 01/19/25 23:57 Temperature Pulse Rate 121 H Respiratory Rate 16 Blood Pressure 180/108 H 189/134 H Pulse Oximetry 95 Oxygen Delivery Method Oxygen Flow Rate 01/19/25 23:57 01/19/25 23:58 01/20/25 00:00 Temperature 97.7 F Pulse Rate 111 H 120 H Respiratory Rate 14 18 Blood Pressure 180/108 H 198/130 H Pulse Oximetry 100 Oxygen Delivery Method Room Air Oxygen Flow Rate 01/20/25 00:00 01/20/25 00:16 01/20/25 00:16 Temperature Pulse Rate 102 H 116 H Respiratory Rate 15 Blood Pressure 177/99 H Pulse Oximetry 97 95 Oxygen Delivery Method Room Air Oxygen Flow Rate 01/20/25 00:30 01/20/25 00:30 01/20/25 00:37 Temperature Pulse Rate 110 H Respiratory Rate 17 Blood Pressure 158/106 H 193/118 H Pulse Oximetry 96 Oxygen Delivery Method Room Air Oxygen Flow Rate 01/20/25 00:37 01/20/25 00:45 01/20/25 00:45 Temperature Pulse Rate 117 H 117 H Respiratory Rate 20 14 Blood Pressure 168/113 H Pulse Oximetry 94 94 Oxygen Delivery Method Oxygen Flow Rate 01/20/25 00:47 01/20/25 00:47 01/20/25 01:00 Temperature Pulse Rate 105 H 121 H Respiratory Rate 12 29 H Blood Pressure 150/110 H Pulse Oximetry 93 96 Oxygen Delivery Method Oxygen Flow Rate 01/20/25 01:01 01/20/25 01:01 01/20/25 01:16 Temperature Pulse Rate 114 H 101 H Respiratory Rate 21 14 Blood Pressure 158/101 H Pulse Oximetry 92 94 Oxygen Delivery Method Oxygen Flow Rate 01/20/25 01:16 01/20/25 01:30 01/20/25 01:30 Temperature Pulse Rate 125 H Respiratory Rate 15 Blood Pressure 158/89 H 163/98 H Pulse Oximetry Oxygen Delivery Method Oxygen Flow Rate 01/20/25 01:45 01/20/25 01:45 01/20/25 01:49 Temperature Pulse Rate 99 H Respiratory Rate 18 Blood Pressure 172/98 H 155/102 H Pulse Oximetry 95 Oxygen Delivery Method Room Air Oxygen Flow Rate 01/20/25 01:49 01/20/25 02:00 01/20/25 02:00 Temperature Pulse Rate 109 H 115 H Respiratory Rate 14 15 Blood Pressure 152/96 H Pulse Oximetry 94 95 Oxygen Delivery Method Oxygen Flow Rate 01/20/25 02:15 01/20/25 02:15 01/20/25 02:30 Temperature Pulse Rate 106 H Respiratory Rate 15 Blood Pressure 148/97 H 150/99 H Pulse Oximetry 94 Oxygen Delivery Method Oxygen Flow Rate 01/20/25 02:30 01/20/25 02:40 01/20/25 02:45 Temperature Pulse Rate 83 115 H Respiratory Rate 15 Blood Pressure 150/99 H 127/78 Pulse Oximetry 95 Oxygen Delivery Method Oxygen Flow Rate 01/20/25 02:45 01/20/25 03:00 01/20/25 03:00 Temperature Pulse Rate 78 65 Respiratory Rate 21 19 Blood Pressure 131/85 Pulse Oximetry 94 94 Oxygen Delivery Method Room Air Oxygen Flow Rate 01/20/25 03:14 01/20/25 03:15 01/20/25 03:15 Temperature Pulse Rate 68 66 Respiratory Rate 21 22 Blood Pressure 145/88 H Pulse Oximetry 94 94 Oxygen Delivery Method Room Air Oxygen Flow Rate 01/20/25 03:48 01/20/25 04:00 01/20/25 05:00 Temperature 97.3 F L Pulse Rate 67 83 Respiratory Rate 16 17 Blood Pressure 154/88 H 136/96 H Pulse Oximetry 94 95 Oxygen Delivery Method Room Air Oxygen Flow Rate 0 0 01/20/25 06:00 Temperature Pulse Rate 81 Respiratory Rate 20 Blood Pressure 140/78 Pulse Oximetry 94 Oxygen Delivery Method Oxygen Flow Rate 0 Patient admitted to ICU room 226 at 0325. A/Ox4, HUGHES, hearing aids at home. A-fib rate 70s-80s at rest, will briefly increase to 120 during activity, resolves. Denies chest pain, palitations, shortness of breath, or dizziness. No diltiazem infusing upon admit. NS @ 100ml/hr. at bedside.
[2025-01-20] MEDS: LOSARTAN 50 MG TABLET PO (08:13)
[2025-01-20] MEDS: ATORVASTATIN 20 MG TABLET 80 MG PO (08:15)
[2025-01-20] MEDS: METOPROLOL ER 50 MG TABLET PO (08:15)
[2025-01-20 08:22] LABS: MRSA (Nasal) PCR NOT DETECTED (Not Detect)
--- NOTE | 2025-01-20 10:58 | P.HP_ITS ---
History of Present Illness History of Present Illness Date Patient Seen: 01/20/25 Time Patient Seen: 08:50 Chief complaint: Palpitations Narrative: CC: tachycardia weakness New onset Afib with RVR he does have a heart history but not of Afib - suddenly acutely weak last night came to ED - started on dilt drip was able to come out of RVR feeling cautiously ok this morning able to eat breakfast. Previously was on metoprolol but had to stop due to low BP. [facility] Medical History Dupuytren's contracture of left hand COVID-19 Eczema Skin cancer Osteoarthritis Urinary calculi Absent-mindedness Proctitis (~2008) Cancer of kidney (~1998) Elevated PSA H/O adenomatous polyp of colon (~07/2017) Multinodular goiter Essential hypertension (06/29/11) Surgical History Anesthesia History of nephrectomy (~1998) Status post colonoscopy (~2008) Social History household members: spouse Smoking Status: Never smoker alcohol intake: current Meds Home Medications and Allergies Home Medications ?Medication ?Instructions ?Recorded ?Confirmed ?Type aspirin 81 mg tablet,delayed 81 mg PO DAILY 01/07/19 0 12/07/24 History release omeprazole 40 mg capsule,delayed 40 mg PO DAILY #30 ca ps 04/29/22 12/07/24 Rx release atorvastatin 40 mg tablet 80 mg PO DAILY 07/12/2307/02 History atorvastatin 80 mg tablet 80 mg PO DAILY 12/07/2407/02 History losartan 100 1 tab PO DAILY 12/07/2407/02 History mg-hydrochlorothiazide 25 mg tablet losartan 50 mg-hydrochlorothiazide 1 tab PO DAILY 07/0212/07/24 History 12.5 mg tablet Allergies Allergy/AdvReac Type Severity Reaction Status Date / Time amoxicillin (From Augmentin) AdvReac Severe Gastrointestinal Verified 01/19/25 23:58 Upset clavulanic acid (From AdvReac Severe Gastrointestinal Verified 01/19/25 23:58 Augmentin) Upset lisinopril (LISINOPRIL) AdvReac Mild feel Verified 01/19/25 23:58 strange Review of Systems Review of Systems Narrative: all systems reviewed and negative except as otherwise documented in HPI Exam Vital Signs (past 8 hours): - 01/20/25 03:00 01/20/25 03:00 01/20/25 03:14 Temperature Pulse Rate 65 68 Respiratory Rate 19 21 Blood Pressure 131/85 Pulse Oximetry 94 94 Oxygen Delivery Method Room Air Oxygen Flow Rate 01/20/25 03:15 01/20/25 03:15 01/20/25 03:48 Temperature 97.3 F L Pulse Rate 66 67 Respiratory Rate 22 16 Blood Pressure 145/88 H 154/88 H Pulse Oximetry 94 94 Oxygen Delivery Method Oxygen Flow Rate 0 01/20/25 04:00 01/20/25 05:00 01/20/25 06:00 Temperature Pulse Rate 83 81 Respiratory Rate 17 20 Blood Pressure 136/96 H 140/78 Pulse Oximetry 95 94 Oxygen Delivery Method Room Air Oxygen Flow Rate 0 0 01/20/25 06:02 01/20/25 06:30 01/20/25 07:00 Temperature Pulse Rate 78 80 Respiratory Rate 17 19 Blood Pressure 134/83 Pulse Oximetry 94 94 Oxygen Delivery Method Oxygen Flow Rate 01/20/25 07:00 01/20/25 08:00 Temperature 97.7 F Pulse Rate 80 79 Respiratory Rate 17 16 Blood Pressure 136/93 H Pulse Oximetry 95 94 Oxygen Delivery Method Oxygen Flow Rate 0 Oxygen Delivery Method Room Air Oxygen Flow Rate 0 Narrative Exam Narrative: resting in hospital bed Const Other: slender well developed Resp Other: clear to auscultation bilaterally Cardio Other: irregularly regular rhythm, normal rate, well perfused no pedal edema s1/s2 GI Other: soft nontender active bowel sounds Neuro Other: alert awake oriented fully moving all limbs Objective Labs 01/19/25 23:59 01/19/25 23:59 Labs: Laboratory Results - last 24 hr 01/19/25 01/20/25 01/20/25 23:59 03:31 07:00 WBC 5.4 RBC 4.93 Hgb 14.7 Hct 42.7 MCV 86.7 MCH 29.8 MCHC 34.3 RDW 14.7 Plt Count 235 Neut % (Auto) 45.1 L Lymph % (Auto) 34.5 [place] % (Auto) 15.3 H Eos % (Auto) 3.5 Baso % (Auto) 1.6 Neut # (Auto) 2400 Lymph # (Auto) 1900 [place] # (Auto) 800 Eos # (Auto) 200 Baso # (Auto) 100 D-Dimer 391 Sodium 141 Potassium 3.4 Chloride 103 Carbon Dioxide 31 BUN 23 H Creatinine 0.91 Estimated GFR > 60 BUN/Creatinine Ratio 25.3 H Glucose 106 H Calcium 10.0 Total Bilirubin 0.7 AST 26 ALT 20 Alkaline Phosphatase 89 Troponin I < 0.012 < 0.012 Total Protein 6.9 Albumin 4.3 Globulin 2.6 Albumin/Globulin Ratio 1.7 Lipase 134 Nasal Screen MRSA (PCR) Not detected Assessment & Plan Assessment & Plan narrative: #Afib with RVR #Chest pain started on eliquis - echo pending - RVR broken with dilt drip will try for oral control next with outpt cardiology referral #hx of NSTEMI stable on statin and ASA continue Dispo: inpt for CP - getting echo today trying for PO rate control PCP: Braxton MDM: spouse Code: full Diet: general Time-Based Coding :: [TOTAL MINUTES] spent with patient and on the chart (including review of chart, obtaining history, exam, reviewing outside data, placing orders, documenting exam and treatment plan, and counseling patient) on [DATE]. Quality VTE Deep Vein Thrombosis/Pulmonary Embolism Present on Admission: No
[2025-01-20 11:42] LABS: Troponin I < 0.012 ng/mL (0.01-0.034)
--- NOTE | 2025-01-20 12:11 | CM.IDA ---
Initial DCP Assessment note. Review EMR and Team Rounds. Met with Patient at bedside introduced self and role. Patient Alert x4 and able to discuss needs and plan. Patient live with at home. Independent with ADLS in their own home with spouse in [place]. able to transport patient home upon discharge. Payor: Medicare. PCP: Braxton 79 y/o male arrived to ED admitted to ICU DX with A. Darci with AVR. Plan today, continue with dilt gtt and cardiac echo. Possible transition to oral Diltiazem and continue to monitor. DCP will continue to monitor for any final discharge needs.
--- NOTE | 2025-01-20 14:02 | EKG_ITS ---
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
--- NOTE | 2025-01-20 14:25 | CM.DANOTE ---
Initial DCP Assessment. Review EMR and Team Rounds. Met with patient and his at bedside. Patient is alert and able to verbalize all his concerns. They in a single story home. Patient still drives. Patient is independent with all ADLS. Pt's , Susanna, is able to provide a ride home upon discharge. Payor: MAGY PCP: Dr. Limon Patient arrived to ED via ambulance c/o fast heart rate. Patient was Dx with A. Fib with RVR. Admitted to ICU on a Diltiazem gtt. Plan to echocardiogram today and possible transition to oral Diltiazem. Cyndi Marrero RN CM Discharge Planning/Care Management CM Discharge Assessment Start: 01/20/25 03:23 Freq: Status: Active Protocol: Document 01/20/25 12:02 (Rec: 01/20/25 12:09 [email or web address]) Discharge Planning Assessment Assigned Discharge ROXANNE Hanna Clinical Account Executive Provider Dr. Limon Insurance Medicare Contact Information , Susanna, At bedside, spoke with patient. Advance Directives? Yes Advance Directives Yes on File History Provided By Patient,Family Member,Medical Record Has Patient been No admitted in last 30 days? Prior Living House Arrangements Household Members spouse Type of Drives own vehicle transporation used prior to admit Independent with ADL Yes 's Is patient alert and Yes oriented? Comment N/A Caregiver for No Another Comment No identified needs at this time. Barriers to No Discharge Comment None identified by nursing. Discharge Plan Home Transportation Family to provide transport. Arrangement Referrals Initiated None needed,Other Additional Comment CM team following in needs arise. Whiteboard Updated Yes in Patient Room with name and ext. # of Tortilla Maker Review Status In Process Please Provide Date 01/20/25 Initial DC Assessment Was Performed
--- NOTE | 2025-01-20 16:22 | P.DS_ITS ---
History of Present Illness History of Present Illness Date Patient Seen: 01/20/25 Time Patient Seen: 16:00 Date of Onset of Symptoms: 01/19/25 Chief complaint: Palpitations Narrative: CC: tachycardia weakness Pleasant gentleman with hx of NSTEMI on ASA/statin presented to ED in acute distress in new findings of Afib with RVR and some chest pain. Admitted for management - RVR resolved with only some diltiazem pushes - never required drip - then his rhythm spontaneously converted to sinus this afternoon without any other obvious intervention besides IVF. He does endorse some possible dehydration lately. Will discharge on eliquis with prn metoprolol tartrate 25 to f/up with me and cardiology as outpt. Discharge Providers Provider Date of admission: 01/20/25 02:47 Discharge Date: 01/20/25 Primary care physician: Anirudh Limon MD Discharge provider: Anirudh Limon MD Summary Hospital Course Discharge Diagnosis: #Afib with RVR #Chest pain started on eliquis - echo obtained for structural issues - RVR broken with dilt pushes then afib converted to sinus with some IVF. Will discharge on eliquis to f/up as outpt with prn metoprolol. #hx of NSTEMI Hospital Course: Mr. Holder did well with minimal interventions. RVR resolved with only some diltiazem pushes - never required drip - then his rhythm spontaneously converted to sinus this afternoon without any other obvious intervention besides IVF. He does endorse some possible dehydration lately so i recommend he jeep his volume up. Will discharge on eliquis with prn metoprolol tartrate 25 to f/up with me and cardiology as outpt. Status at Discharge Cognitive/behavioral status at discharge: at baseline, oriented Functional status at discharge: independent ambulation Overall status at discharge: patient is back to baseline Time Spent with Patient Time spent: Greater than 30 minutes Exam Vital Signs (past 8 hours): - 01/20/25 08:30 01/20/25 09:00 01/20/25 09:30 Pulse Rate 87 86 79 Respiratory Rate 18 17 Blood Pressure Pulse Oximetry 94 94 96 01/20/25 12:45 01/20/25 12:45 Pulse Rate 53 L Respiratory Rate Blood Pressure 146/77 H Pulse Oximetry 97 Oxygen Delivery Method Room Air Oxygen Flow Rate 0 Narrative Exam Narrative: resting in hospital bed with family at bedside Const Other: Tall and slender Resp Other: clear to auscultation bilaterally Cardio Other: regular rate and rhythm, s1/s2 no pedal edema good color GI Other: soft nontender active bowel sounds Objective Labs 01/19/25 23:59 01/19/25 23:59 Labs: Laboratory Results - last 24 hr 01/19/25 01/20/25 01/20/25 23:59 03:31 07:00 WBC 5.4 RBC 4.93 Hgb 14.7 Hct 42.7 MCV 86.7 MCH 29.8 MCHC 34.3 RDW 14.7 Plt Count 235 Neut % (Auto) 45.1 L Lymph % (Auto) 34.5 [place] % (Auto) 15.3 H Eos % (Auto) 3.5 Baso % (Auto) 1.6 Neut # (Auto) 2400 Lymph # (Auto) 1900 [place] # (Auto) 800 Eos # (Auto) 200 Baso # (Auto) 100 D-Dimer 391 Sodium 141 Potassium 3.4 Chloride 103 Carbon Dioxide 31 BUN 23 H Creatinine 0.91 Estimated GFR > 60 BUN/Creatinine Ratio 25.3 H Glucose 106 H Calcium 10.0 Total Bilirubin 0.7 AST 26 ALT 20 Alkaline Phosphatase 89 Troponin I < 0.012 < 0.012 Total Protein 6.9 Albumin 4.3 Globulin 2.6 Albumin/Globulin Ratio 1.7 Lipase 134 Nasal Screen MRSA (PCR) Not detected 01/20/25 11:05 WBC RBC Hgb Hct MCV MCH MCHC RDW Plt Count Neut % (Auto) Lymph % (Auto) [place] % (Auto) Eos % (Auto) Baso % (Auto) Neut # (Auto) Lymph # (Auto) [place] # (Auto) Eos # (Auto) Baso # (Auto) D-Dimer Sodium Potassium Chloride Carbon Dioxide BUN Creatinine Estimated GFR BUN/Creatinine Ratio Glucose Calcium Total Bilirubin AST ALT Alkaline Phosphatase Troponin I < 0.012 Total Protein Albumin Globulin Albumin/Globulin Ratio Lipase Nasal Screen MRSA (PCR) [facility] Medical History Dupuytren's contracture of left hand COVID-19 Eczema Skin cancer Osteoarthritis Urinary calculi Absent-mindedness Proctitis (~2008) Cancer of kidney (~1998) Elevated PSA H/O adenomatous polyp of colon (~07/2017) Multinodular goiter Essential hypertension (06/29/11) Surgical History Anesthesia History of nephrectomy (~1998) Status post colonoscopy (~2008) Social History household members: spouse Smoking Status: Never smoker alcohol intake: current Discharge Assessment & Plan Assessment and Plan Assessment: #Afib with RVR #Chest pain started on eliquis - echo obtained for structural issues - RVR broken with dilt pushes then afib converted to sinus with some IVF. Chest pain full resolved. Will discharge on eliquis to f/up as outpt with prn metoprolol. #hx of NSTEMI stable on statin and ASA continue Dispo: home to f/up as outpt PCP: Braxton MDM: spouse Code: full Diet: general Discharge Plan Discharge Plan Patient Disposition: Home Provider Discharge Comment: eliquis and metoprolol prn scripts sent to [facility] via outside EMR Discharge orders & Medications Prescriptions: Continued atorvastatin 80 mg tablet 80 mg PO DAILY losartan-hydrochlorothiazide 100-25 mg tablet 1 tab PO DAILY losartan-hydrochlorothiazide 50-12.5 mg tablet 1 tab PO DAILY aspirin 81 mg tablet,delayed release (DR/EC) 81 mg PO DAILY omeprazole 40 mg capsule,delayed release(DR/EC) 40 mg PO DAILY Qty: 30 0RF atorvastatin 40 mg tablet 80 mg PO DAILY Follow up/Referrals: Anirudh Limon MD [Primary Care Provider, Family Practice] Visit Report/Discharge Packet Stand Alone Forms: Patient Portal/API, Stroke Signs & Symptoms Discharge Data Primary Care Provider: Anirudh Limon Quality VTE Deep Vein Thrombosis/Pulmonary Embolism Present on Admission: No
--- NOTE | 2025-01-20 17:22 | PC.NURSE ---
Pt discharging home, in private vehicle with . All questions answered and discharge instructions reviewed. Pt being wheeled out in wheelchair.
== END 2025-01-20 17:23 | disposition home or self-care (01) | DRG 310 ==
LOC: ED 01-20 00:20 → AC 01-20 02:47 → ICU 01-20 03:06
PROVIDERS: Admitting Provider Family Medicine; Emergency Provider Emergency Medicine; PCP Family Medicine; Referring Provider Emergency Medicine; Visit Provider Family Medicine
DX: I48.91 Unspecified atrial fibrillation (principal); R07.9 Chest pain, unspecified; E86.0 Dehydration; I10 Essential (primary) hypertension; I25.2 Old myocardial infarction; Z79.82 Long term (current) use of aspirin; Z86.718 Personal history of other venous thrombosis and embolism
CPT/HCPCS: 71045; 80053; 81003; 83690; 84484; 85025; 85379; 87797; 93005; 93010; 93306; 96374; 96375; 99284; 99291

== ENCOUNTER 2025-03-22 05:10 | Emergency (ER) | payer MEDICARE, OTHER, SELFPAY ==
[2025-01-20 03:57] VITALS: BMI 23.1
[2025-03-22] VITALS (21 sets, daily range): BP systolic 115–157; BP diastolic 69–93; PULSE 46–57; RESP 12–24; TEMP 36.8; O2SAT 91–96; BMI 23.7
--- NOTE | 2025-03-22 05:14 | EKG_ITS ---
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
--- NOTE | 2025-03-22 05:23 | ED_ITS ---
HPI - Chest Pain <Henna Tucker, DO - Last Filed: 03/24/25 15:51> General Chief Complaint: Chest Pain Stated Complaint: Chest discomfort Time Seen by Provider: 03/22/25 05:14 Source: patient and family Mode of arrival: Ambulatory Limitations: no limitations History of Present Illness HPI narrative: 80-year-old male history of atrial fibrillation on Eliquis, hypertension, dyslipidemia, GERD, prior DVT. Patient states that about midnight he felt like his heart rate was very fast. States it no longer feels fast but he has had chest pain across both sides of the chest without radiation elsewhere. He describes it as a little bit of pressure. He says has been pretty constant although he was able to fall asleep was still present when he woke up this morning. He denies any fevers no cold cough congestion symptoms. No shortness of breath. No nausea or vomiting. No diarrhea or constipation, no GI or urinary symptoms. No new swelling in extremities. Patient states when he had his onset of atrial fibrillation in January you only felt palpitations and no chest discomfort. He has had cardiac catheterization in the past for elevated troponins but was negative this is a proximally 2 years prior. Patient denies any other interventions to his heart. He has not allergy to lisinopril. Former smoker, occasional alcohol, no recreational drugs. Patient's primary care is Dr. Limon. Dr. Quintero through [facility] is his all source intelligence analyst. Related Data Home Medications ?Medication ?Instructions ?Recorded ?Confirmed atorvastatin 80 mg tablet 80 mg PO DAILY 12/07/2403/08 losartan 50 mg-hydrochlorothiazide 1 tab PO DAILY 07/0203/22/25 12.5 mg tablet apixaban 5 mg tablet (Eliquis) 5 mg PO BID 03/22/25 metoprolol tartrate 25 mg tablet 25 mg PO .as needed P RN chest 03/22/25 03/22/25 discomfort Previous Rx's ?Medication ?Instructions ?Recorded omeprazole 40 mg capsule,delayed 40 mg PO DAILY #30 ca ps 04/29/22 release Allergies Allergy/AdvReac Type Severity Reaction Status Date / Time amoxicillin (From Augmentin) AdvReac Severe Gastrointestinal Verified 03/22/25 05:15 Upset clavulanic acid (From AdvReac Severe Gastrointestinal Verified 03/22/25 05:15 Augmentin) Upset lisinopril (LISINOPRIL) AdvReac Mild feel Verified 03/22/25 05:15 strange Review of Systems <Henna Tucker DO - Last Filed: 03/24/25 15:51> Review of Systems ROS Unobtainable: All systems reviewed & are unremarkable except as noted in HPI and below Patient History <Henna Tucker DO - Last Filed: 03/24/25 15:51> Medical History Dupuytren's contracture of left hand COVID-19 Eczema Skin cancer Osteoarthritis Urinary calculi Absent-mindedness Proctitis (~2008) Cancer of kidney (~1998) Elevated PSA H/O adenomatous polyp of colon (~07/2017) Multinodular goiter Essential hypertension (06/29/11) Surgical History Anesthesia History of nephrectomy (~1998) Status post colonoscopy (~2008) Social History household members: spouse Smoking Status: Former smoker alcohol intake: current Smoking Status: Former smoker alcohol intake frequency: holidays/special occasions only Exam <Henna Tucker DO - Last Filed: 03/24/25 15:51> Narrative Exam Narrative: GENERAL: Alert and oriented x three, male in mild distress HEENT: Head normocephalic, atraumatic, EOMI, pupils reactive, face symmetric, moist mucous membranes NECK: Supple, full range of motion CARDIOVASCULAR: Bradycardic but regular rate and rhythm without murmurs, rubs or gallops. No JVD. No edema bilateral lower extremities. RESPIRATORY: Breath sounds equal bilaterally, no wheezes rales or rhonchi. ABDOMEN: Soft, nontender. Normoactive bowel sounds all 4 quadrants. No guarding or rebound, rigidity, no mass : No CVA tenderness EXTREMITIES: Normal range of motion, no clubbing or edema. Neurovascularly intact NEUROLOGICAL: Cranial nerves II through XII grossly intact. Moving all extremities SKIN: Warm, dry, no petechiae, no rashes or lesions. Initial Vital Signs Initial Vital Signs: Vital Signs Temperature 98.2 F 03/22/25 05:16 Pulse Rate 46 L 03/22/25 05:16 Respiratory Rate 15 03/22/25 05:16 Blood Pressure 143/87 H 03/22/25 05:16 Pulse Oximetry 95 03/22/25 05:16 Oxygen Delivery Method Room Air 03/22/25 05:16 <Jamal Lyons MD - Last Filed: 03/22/25 18:52> Initial Vital Signs Initial Vital Signs: Vital Signs Temperature 98.2 F 03/22/25 05:16 Pulse Rate 46 L 03/22/25 05:16 Respiratory Rate 15 03/22/25 05:16 Blood Pressure 143/87 H 03/22/25 05:16 Pulse Oximetry 95 03/22/25 05:16 Oxygen Delivery Method Room Air 03/22/25 05:16 Course <Henna Tucker DO - Last Filed: 03/24/25 15:51> Orders Ordered: Discontinued Medications Nitroglycerin (Nitroglycerin 0.4 Mg Sl Tab) 0.4 mg SL [id number] PRN PRN Reason: Chest Pain Last Admin: 03/22/25 05:38 Dose: 0.4 mg Documented By: Admin: 03/22/25 05:32 Dose: 0.4 mg Documented By: [email or web address] Vital Signs Vital signs: Vital Signs - 8 hr 03/22/25 05:16 03/22/25 05:29 03/22/25 05:30 Temperature 98.2 F Pulse Rate 46 L 52 L Respiratory Rate 15 21 Blood Pressure 143/87 H 152/93 H Pulse Oximetry 95 96 Oxygen Delivery Method Room Air 03/22/25 05:30 03/22/25 05:31 03/22/25 05:31 Temperature Pulse Rate 50 L 49 L Respiratory Rate 17 15 Blood Pressure 157/87 H Pulse Oximetry 95 95 Oxygen Delivery Method 03/22/25 05:32 03/22/25 05:38 03/22/25 05:40 Temperature Pulse Rate 49 L 54 L 53 L Respiratory Rate 16 Blood Pressure 157/87 H 125/74 Pulse Oximetry 93 Oxygen Delivery Method 03/22/25 05:40 03/22/25 05:41 03/22/25 05:42 Temperature Pulse Rate 54 L 53 L Respiratory Rate 18 17 Blood Pressure 125/74 Pulse Oximetry 92 92 Oxygen Delivery Method 03/22/25 05:43 03/22/25 05:44 03/22/25 05:45 Temperature Pulse Rate 56 L 55 L 57 L Respiratory Rate 15 17 12 Blood Pressure Pulse Oximetry 92 92 91 Oxygen Delivery Method 03/22/25 05:46 03/22/25 05:47 03/22/25 05:48 Temperature Pulse Rate 54 L 55 L Respiratory Rate 18 17 Blood Pressure 118/70 Pulse Oximetry 93 91 Oxygen Delivery Method 03/22/25 05:48 03/22/25 06:00 03/22/25 06:00 Temperature Pulse Rate 55 L 51 L Respiratory Rate 17 19 Blood Pressure 117/69 Pulse Oximetry 91 93 Oxygen Delivery Method 03/22/25 06:30 03/22/25 06:30 03/22/25 07:00 Temperature Pulse Rate 49 L 49 L Respiratory Rate 18 20 Blood Pressure 122/72 Pulse Oximetry 95 95 Oxygen Delivery Method Room Air 03/22/25 07:00 03/22/25 07:30 03/22/25 07:30 Temperature Pulse Rate 48 L Respiratory Rate 17 Blood Pressure 127/73 123/69 Pulse Oximetry 95 Oxygen Delivery Method 03/22/25 08:00 03/22/25 08:00 Temperature Pulse Rate 48 L Respiratory Rate 15 Blood Pressure 115/72 Pulse Oximetry 95 Oxygen Delivery Method <Jamal Lyons MD - Last Filed: 03/22/25 18:52> Orders Ordered: Discontinued Medications Nitroglycerin (Nitroglycerin 0.4 Mg Sl Tab) 0.4 mg SL [id number] PRN PRN Reason: Chest Pain Last Admin: 03/22/25 05:38 Dose: 0.4 mg Documented By: Admin: 03/22/25 05:32 Dose: 0.4 mg Documented By: SANJEEV Reevaluation(s) Reevaluation #1: care assumed 0700 reviewed labs and ECG, neg stress test in May, 2022. Needs second trop. Reevaluation #2: Patient re-evaluated prior to discharge. Troponins are normal x2. Patient confirms to me history of chest discomfort across his test beginning about 12:30 a.m. and resolving something like an hour after he arrived here. Resolution did not occur immediately after receiving sublingual nitroglycerin. His tells me that he told her that his heart was ?racing? and he took a dose of metoprolol that his all source intelligence analyst had prescribed for this. He confirms that he is taking Eliquis for anticoagulation. He has not been having exertional chest pain recently no fevers no shortness of breath or cough. He says that about 2 years ago he had a negative cardiac catheterization in [place], I was able to see that in May of 2022 at a negative stress test. Personally reviewed his EKG and chest x-ray. Vital signs were reviewed, he is bradycardic this is baseline. Heart sounds remarkable for a slow rate and a soft systolic murmur Lungs are clear he is alert and oriented HEART Score: Score 0 for slightly suspicious history, score 0 for normal EKG, score 2 for risk factors, score 2 for age greater than 65. Heart score is 4 however I note previous negative ischemic workup. Highly atypical symptoms with 2 normal troponins. He has established Cardiology to follow up with. Vital Signs Vital signs: Vital Signs - 8 hr 03/22/25 05:16 03/22/25 05:29 03/22/25 05:30 Temperature 98.2 F Pulse Rate 46 L 52 L Respiratory Rate 15 21 Blood Pressure 143/87 H 152/93 H Pulse Oximetry 95 96 Oxygen Delivery Method Room Air 03/22/25 05:30 03/22/25 05:31 03/22/25 05:31 Temperature Pulse Rate 50 L 49 L Respiratory Rate 17 15 Blood Pressure 157/87 H Pulse Oximetry 95 95 Oxygen Delivery Method 03/22/25 05:32 03/22/25 05:38 03/22/25 05:40 Temperature Pulse Rate 49 L 54 L 53 L Respiratory Rate 16 Blood Pressure 157/87 H 125/74 Pulse Oximetry 93 Oxygen Delivery Method 03/22/25 05:40 03/22/25 05:41 03/22/25 05:42 Temperature Pulse Rate 54 L 53 L Respiratory Rate 18 17 Blood Pressure 125/74 Pulse Oximetry 92 92 Oxygen Delivery Method 03/22/25 05:43 03/22/25 05:44 03/22/25 05:45 Temperature Pulse Rate 56 L 55 L 57 L Respiratory Rate 15 17 12 Blood Pressure Pulse Oximetry 92 92 91 Oxygen Delivery Method 03/22/25 05:46 03/22/25 05:47 03/22/25 05:48 Temperature Pulse Rate 54 L 55 L Respiratory Rate 18 17 Blood Pressure 118/70 Pulse Oximetry 93 91 Oxygen Delivery Method 03/22/25 05:48 03/22/25 06:00 03/22/25 06:00 Temperature Pulse Rate 55 L 51 L Respiratory Rate 17 19 Blood Pressure 117/69 Pulse Oximetry 91 93 Oxygen Delivery Method 03/22/25 06:30 03/22/25 06:30 03/22/25 07:00 Temperature Pulse Rate 49 L 49 L Respiratory Rate 18 20 Blood Pressure 122/72 Pulse Oximetry 95 95 Oxygen Delivery Method Room Air 03/22/25 07:00 03/22/25 07:30 03/22/25 07:30 Temperature Pulse Rate 48 L Respiratory Rate 17 Blood Pressure 127/73 123/69 Pulse Oximetry 95 Oxygen Delivery Method 03/22/25 08:00 03/22/25 08:00 Temperature Pulse Rate 48 L Respiratory Rate 15 Blood Pressure 115/72 Pulse Oximetry 95 Oxygen Delivery Method MDM - Chest Pain <Henna Tucker, - Last Filed: 03/24/25 15:51> Lab Data 03/22/25 05:30 03/22/25 05:30 Labs: Lab Results 03/22/25 03/22/25 Range/Units 05:30 07:26 WBC 6.7 (4.5-11.0) X10^3/uL RBC 4.72 (4.5-5.9) X10^6/uL Hgb 14.0 (13.5-17.5) g/dL Hct 40.8 L (41-53) % MCV 86.3 (80-100) fL MCH 29.7 (26-34) PG MCHC 34.4 (30-36) % RDW 14.5 (11.6-14.8) % Plt Count 283 (150-400) X10^3/uL Neut % (Auto) 64.7 (50-75) % Lymph % (Auto) 18.8 L (25-40) % [place] % (Auto) 13.8 (3-14) % Eos % (Auto) 2.3 (2-4) % Baso % (Auto) 0.4 (0-2) % Neut # (Auto) 4400 (8489-6298) /uL Lymph # (Auto) 1300 (1347-9333) /uL [place] # (Auto) 900 (0-900) /uL Eos # (Auto) 200 (0-450) /uL Baso # (Auto) 0 (0-100) /uL Sodium 141 (137-145) mmol/L Potassium 3.7 (3.4-5.1) mmol/L Chloride 108 H (98-107) mmol/L Carbon Dioxide 26 (22-32) mmol/L BUN 23 H (9-20) mg/dL Creatinine 0.72 (0.66-1.25) mg/dL Estimated GFR > 60 (>60) mL/min BUN/Creatinine Ratio 31.9 H (6-22) Glucose 98 (70-99) mg/dL Calcium 9.3 (8.4-10.2) mg/dL Magnesium 1.5 L (1.6-2.3) mg/dL Total Bilirubin 0.8 (0.2-1.3) mg/dL AST 21 (17-59) IU/L ALT 18 (<50) IU/L Alkaline Phosphatase 74 (38-126) U/L Troponin I < 0.012 < 0.012 (0.01-0.034) ng/mL NT-Pro-B Natriuret Pep 175 (<450) pg/mL Total Protein 6.3 (6.3-8.2) g/dL Albumin 3.7 (3.5-5.0) g/dL Globulin 2.6 (1.7-4.1) g/dL Albumin/Globulin Ratio 1.4 (1.0-2.8) Lipase 80 (23-300) U/L MDM Narrative Medical decision making narrative: EKG shows sinus bradycardia with first-degree AV block. Rate of 48, CT 210 QRS of 100 QTC of 423. No acute ST changes appreciated. Patient has prior from 01/20/2025. Chest x-ray, no acute cardiopulmonary abnormality seen, hyperinflated lungs with flattened diaphragm mild interstitial prominence. Labs show normal white count, hemoglobin of 14 platelets of 283, chemistries show chloride of 108 BUN 23 otherwise normal electrolytes creatinine 0.72 glucose of 98 Mag is 1.5 LFTs are normal troponins less than 0.012 with a BNP of 175. Repeat troponin/EKG ordered. Patient signed out to Dr. Lyons. 72-year-old man with a history of atrial fibrillation history of NSTEMI without occlusive coronary disease presenting with an episode of vague chest tightness preceded by transient racing of his heart. Has a history of atrial fibrillation is taking apixaban appropriately here is in normal sinus rhythm. Troponins are normal x2. Atypical history for ischemia and no ischemic EKG changes for elevation in troponin. I considered but do not suspect pulmonary embolism. Recommended he continue his previous medications and follow up with his all source intelligence analyst. He will return if he is having recurrent chest pain <Jamal Lyons MD - Last Filed: 03/22/25 18:52> Lab Data Lab results narrative: trop and BNP normal Labs: Lab Results 03/22/25 03/22/25 Range/Units 05:30 07:26 WBC 6.7 (4.5-11.0) X10^3/uL RBC 4.72 (4.5-5.9) X10^6/uL Hgb 14.0 (13.5-17.5) g/dL Hct 40.8 L (41-53) % MCV 86.3 (80-100) fL MCH 29.7 (26-34) PG MCHC 34.4 (30-36) % RDW 14.5 (11.6-14.8) % Plt Count 283 (150-400) X10^3/uL Neut % (Auto) 64.7 (50-75) % Lymph % (Auto) 18.8 L (25-40) % [place] % (Auto) 13.8 (3-14) % Eos % (Auto) 2.3 (2-4) % Baso % (Auto) 0.4 (0-2) % Neut # (Auto) 4400 (6344-0210) /uL Lymph # (Auto) 1300 (9349-7904) /uL [place] # (Auto) 900 (0-900) /uL Eos # (Auto) 200 (0-450) /uL Baso # (Auto) 0 (0-100) /uL Sodium 141 (137-145) mmol/L Potassium 3.7 (3.4-5.1) mmol/L Chloride 108 H (98-107) mmol/L Carbon Dioxide 26 (22-32) mmol/L BUN 23 H (9-20) mg/dL Creatinine 0.72 (0.66-1.25) mg/dL Estimated GFR > 60 (>60) mL/min BUN/Creatinine Ratio 31.9 H (6-22) Glucose 98 (70-99) mg/dL Calcium 9.3 (8.4-10.2) mg/dL Magnesium 1.5 L (1.6-2.3) mg/dL Total Bilirubin 0.8 (0.2-1.3) mg/dL AST 21 (17-59) IU/L ALT 18 (<50) IU/L Alkaline Phosphatase 74 (38-126) U/L Troponin I < 0.012 < 0.012 (0.01-0.034) ng/mL NT-Pro-B Natriuret Pep 175 (<450) pg/mL Total Protein 6.3 (6.3-8.2) g/dL Albumin 3.7 (3.5-5.0) g/dL Globulin 2.6 (1.7-4.1) g/dL Albumin/Globulin Ratio 1.4 (1.0-2.8) Lipase 80 (23-300) U/L MDM Narrative Medical decision making narrative: EKG shows sinus bradycardia with first-degree AV block. Rate of 48, CT 210 QRS of 100 QTC of 423. No acute ST changes appreciated. Patient has prior from 01/20/2025. Chest x-ray, Labs show normal white count, hemoglobin of 14 platelets of 283, chemistries show chloride of 108 BUN 23 otherwise normal electrolytes creatinine 0.72 glucose of 98 Mag is 1.5 LFTs are normal troponins less than 0.012 with a BNP of 175. 72-year-old man with a history of atrial fibrillation history of NSTEMI without occlusive coronary disease presenting with an episode of vague chest tightness preceded by transient racing of his heart. Has a history of atrial fibrillation is taking apixaban appropriately here is in normal sinus rhythm. Troponins are normal x2. Atypical history for ischemia and no ischemic EKG changes for elevation in troponin. I considered but do not suspect pulmonary embolism. Recommended he continue his previous medications and follow up with his all source intelligence analyst. He will return if he is having recurrent chest pain Discharge Plan Departure Patient Disposition: Home Clinical Impression: Atypical chest pain Activity Restrictions/Additional Instructions: No serious cause for your chest pain is identified today. I think it is safe to go home. Continue your previous home medications. If you feel like your heart is ?racing? are going fast, please try to check your pulse. It is helpful to have this information. Continue to use the metoprolol only if you are having a rapid heart rate. Follow up soon with your all source intelligence analyst. If you are having recurrent chest pain please return to the emergency department Prescriptions: No Action atorvastatin 80 mg tablet 80 mg PO DAILY losartan-hydrochlorothiazide 50-12.5 mg tablet 1 tab PO DAILY omeprazole 40 mg capsule,delayed release(DR/EC) 40 mg PO DAILY Qty: 30 0RF metoprolol tartrate 25 mg tablet 25 mg PO .as needed PRN (Reason: chest discomfort) Eliquis 5 mg tablet 5 mg PO BID Referrals: Anirudh Limon MD [Primary Care Provider, Family Practice] Stand Alone Forms: Patient Portal/API
[2025-03-22] MEDS: NITROGLYCERIN 0.4 MG SL TAB SL ×2 (05:32→05:38)
[2025-03-22 05:41] LABS: Add Manual Diff / Slide Review NO; Hematocrit 40.8 % (41-53); Hemoglobin 14.0 g/dL (13.5-17.5); Lymphocytes Absolute Auto 1300 /uL (1100-4500); Mean Corpuscular HGB Conc 34.4 % (30-36); Mean Corpuscular Hemoglobin 29.7 PG (26-34); Mean Corpuscular Volume 86.3 fL (80-100); Platelet Count 283 X10^3/uL (150-400)
[2025-03-22 05:57] LABS: Alanine Aminotransferase 18 IU/L (<50); Albumin 3.7 g/dL (3.5-5.0); Albumin Globulin Ratio 1.4 (1.0-2.8); Alkaline Phosphatase 74 U/L (38-126); Blood Urea Nitrogen 23 mg/dL (9-20); Calcium 9.3 mg/dL (8.4-10.2); Carbon Dioxide 26 mmol/L (22-32); Chloride 108 mmol/L (98-107); Estimated Glomerular Filt Rate > 60 mL/min (>60); Globulin 2.6 g/dL (1.7-4.1); Glucose 98 mg/dL (70-99); HEMOLYSIS < 15 (0-50); Lipase 80 U/L (23-300); Magnesium 1.5 mg/dL (1.6-2.3); Potassium 3.7 mmol/L (3.4-5.1); Sodium 141 mmol/L (137-145); Total Protein 6.3 g/dL (6.3-8.2)
[2025-03-22 06:09] LABS: NT-proBNP (BNP-Adult 18+) 175 pg/mL (<450); Troponin I < 0.012 ng/mL (0.01-0.034)
--- NOTE | 2025-03-22 06:16 | DI.RAD.S_ITS ---
PROCEDURE: XR CHEST 1V INDICATIONS: chest pain TECHNIQUE: One view of the chest was acquired. COMPARISON: [facility], CR, XR CHEST 1V, 01/20/2025, 2:51. FINDINGS: Surgical changes and devices: None. Lungs and pleura: Hyperinflated lungs with flattening of diaphragms. Mild interstitial prominence. No airspace consolidation. No pleural effusion. No pneumothorax. Mediastinum: Mediastinal contours appear normal. Heart size is normal. Bones and chest wall: No suspicious bony lesions. Overlying soft tissues appear unremarkable. IMPRESSION: No acute cardiopulmonary abnormality is seen. Interpretation is concordant with overnight read Dictated by: Gopi Pereyra M.D. on 03/22/2025 at 9:10 Approved by: Gopi Pereyra M.D. on 03/22/2025 at 9:11
--- NOTE | 2025-03-22 07:44 | EKG_ITS ---
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
[2025-03-22 07:55] LABS: Troponin I < 0.012 ng/mL (0.01-0.034)
== END 2025-03-22 09:02 | disposition home or self-care (01) ==
PROVIDERS: Emergency Medicine; Emergency Provider Emergency Medicine; PCP Family Medicine
DX: R07.89 Other chest pain (principal); I10 Essential (primary) hypertension; R00.1 Bradycardia, unspecified; I44.0 Atrioventricular block, first degree; Z79.01 Long term (current) use of anticoagulants
CPT/HCPCS: 36415; 71045; 80053; 83690; 83735; 83880; 84484; 85025; 93005; 99284